=== PATIENT | female | born 1985 | race Caucasian/White ===

== ENCOUNTER 2019-07-22 15:19 | Outpatient (CLI) | payer MEDICARE, MEDICAID, SELFPAY ==
[2019-07-22 16:58] LABS: FREE T4 1.01 ng/dL (0.76-1.46); TSH 2.81 uIU/mL (0.36-3.74)
== END 2019-07-22 15:39 ==
PROVIDERS: Family Medicine; PCP Nurse Practitioner Family; Visit Provider Nurse Practitioner Family
DX: E03.9 Hypothyroidism, unspecified (principal)
CPT/HCPCS: 36415; 84439; 84443

== ENCOUNTER 2019-09-18 08:25 | Emergency (ER) | payer MEDICARE, MEDICAID, SELFPAY ==
[2019-09-18 08:29] VITALS: BP 123/75; PULSE 88; RESP 18; TEMP 36.2; O2SAT 99
--- NOTE | 2019-09-18 08:40 | ED.GENADUL_ITS ---
Discharge Plan Disposition Patient Disposition: HOME Condition: Stable Discharge Details Chief Complaint: GenMedical Clinical Impression: Encounter for medical screening examination Primary Care Provider: Lesia Pfeiffer ED Provider: Alvin Kramer Home Meds and New Rx's Prescriptions: Continued olanzapine [Zyprexa] 10 mg Tablet 30 mg PO DAILY RF: 0 dextroamphetamine-amphetamine [Adderall] 20 mg Tablet 20 mg PO BID RF: 0 Discharge Instructions Additional Instructions: You underwent medical screening examination and breath alcohol testing which was 0. You are medically stable for discharge from the emergency department at this time. Return for any acute concerns. Continue your regular medications Medical Decision Making 34-year-old female currently seen at the [facility] bed. Requests alcohol screening due to missing curfew last night and admitted to drinking alcohol. Denies thoug hts of harming herself or others. Her vital signs and medical examination are unremarkable. A breath alcohol test was performed and 0. Patient stable for discharge to home. HPI General Mode of arrival: ambulatory . Date/Time Provider Initiated Documentation: 09/18/19 08:28 . Limitations to Documentation: no limitations . Information obtained by: patient . History of Present Illness 34 year old F presents to the emergency department with the chief complaint of Requests alcohol screening, Quality is described as other (No other complaint), Patient started experiencing this hour(s) and it has been now resolved. No relieving factors improve symptom(s), No exacerbating factors reported . Patient notes no other symptoms.. Patient did receive the following treatment s prior to arrival, none Related Data Home Medications Medication Instructions Recorded Confirmed dextroamphetamine-amphetamine 20 mg PO BID 09/18/19 09/18/19 [Adderall] olanzapine [Zyprexa] 30 mg PO DAILY 09/18/19 09/18/19 Allergies Allergy/AdvReac Type Severity Reaction Status Date / Time No Known Allergies Allergy Unverified 09/18/19 08:39 General Stated Complaint: GenMedical MP: 5 Review of Systems Narrative: No active thoughts of harming self or others, no self-harm PFSH Social History Smoking/Tobacco Use Status: Current every day Alcohol Intake: current Alcohol Intake frequency: a few times a month Substance use type: does not use Current gender identity: female Exam Narrative Exam Narrative: GEN: awake, alert, oriented 3. Pleasant, well groomed, interactive. HEAD: Normocephalic, atraumatic ENT: Mucous membranes moist, oropharynx unremarkable, External ear exam unremarkable EYES: PERRL, EOMI NECK: Full ROM, no BALDO, no menigismus CHEST/RESP: No respiratory distress CARDIOVASCULAR: 2+ Rad pulse bilateral EXT: Full ROM, no edema, no rash Neuro: Grossly normal neurologic exam, conversant, interactive. Psych: Speech fluent, thoughts congruent, affect normal Course Vital Signs Vital signs: Vital Signs Temperature 36.2 C L 09/18/19 08:29 Pulse 88 09/18/19 08:29 Respiratory Rate 18 09/18/19 08:29 Blood Pressure 123/75 09/18/19 08:29 Pulse Oximetry 99 09/18/19 08:29 Temperature 36.2 C L 09/18/19 08:29 Temperature Source Skin 09/18/19 08:29 Pulse 88 09/18/19 08:29 Respiratory Rate 18 09/18/19 08:29 Respiratory Effort Non-Labored 09/18/19 08:37 Blood Pressure 123/75 09/18/19 08:29 Blood Pressure Position Sitting 09/18/19 08:29 Pulse Oximetry 99 09/18/19 08:29 Oxygen Delivery Method Room Air 09/18/19 08:29 Oxygen Flow Rate 0 09/18/19 08:29 Pain Level 0 09/18/19 08:29
== END 2019-09-18 08:53 | disposition home or self-care (01) ==
LOC: ER 08:55
PROVIDERS: Emergency Provider Emergency Medicine; PCP Family Medicine
DX: F10.10 Alcohol abuse, uncomplicated (principal)
CPT/HCPCS: 99283; 99282

== ENCOUNTER 2019-11-04 14:03 | Emergency (ER) | payer MEDICARE, MEDICAID, SELFPAY ==
[2019-11-04 14:00] VITALS: BP 136/85; PULSE 90; RESP 20; TEMP 36.5; O2SAT 99
--- NOTE | 2019-11-04 14:47 | W.ED.GENAD ---
Discharge Plan Disposition Patient Disposition: HOME Condition: Improving Discharge Details Chief Complaint: PsychEval Clinical Impression: Numbness and tingling of left leg Primary Care Provider: Lesia Pfeiffer ED Provider: Monica Gomez Home Meds and New Rx's Prescriptions: No Action olanzapine [Zyprexa] 10 mg Tablet 30 mg PO HS RF: 0 dextroamphetamine-amphetamine [Adderall] 20 mg Tablet 20 mg PO BID RF: 0 penicillin V potassium 500 mg Tablet 500 mg PO QID RF: 0 lorazepam 2 mg Tablet 2 mg PO DAILY RF: 0 norgestimate-ethinyl estradiol [Tri-Sprintec (28)] 0.18/0.215/0.25 mg-35 mcg (28) Tablet 1 tab PO DAILY RF: 0 ketoconazole 2 % Cream 1 applic TOPICAL BID RF: 0 aluminum chloride [Drysol] 20 % Solution 1 applic TOPICAL BID RF: 0 Discharge Instructions Additional Instructions: Drink plenty of fluids. Use your medications previously prescribed. Rest activities as tolerated. Follow-up with your mental health providers and primary care doctor. Return for any worsening, concerns or alarming symptoms sooner if needed Discharge Data Discharge Date/Time-TO BE ENTERED AT DEPARTURE: 11/04/19 16:23 Medical Decision Making This 34-year-old patient with a long psychologic history presenting to the emergency room for complaints of bilateral thigh numbness. Patient is primarily concerned that she was overmedicated. Patient does report she had a emotional day initially then saw her counselor and felt she had a good session. Patient currently resides at the [facility] bed. Patient medications are provided by [facility]. Patient denies any safety concern. Denies any suicidality, homicidality. Patient denies any fevers, chills, back pain. Patient denies any radicular symptoms bilaterally but reports proximal thigh sensation of numbness. Patient reports initially she had some ambulatory changes however at this time she has no obvious changes on exam. Patient has an exam revealing no obvious neurosurgical findings of the lower legs. Patient has sensation intact throughout her legs. Patient has full strength of her lower legs on exam. Patient has no other medical concerns or complaints at this time. Patient was offered lab evaluation as well as drug testing and mental health evaluation all of which she consents to. I attempted to speak with [facility] regarding patient's medication she was provided today and they are unwilling to disclose what medication she received today. Mental health consult was requested and they will evaluate the patient in the emergency room. Labs obtained as well as urine drug screen. Patient's urine drug screen is positive only for a for amphetamines. Patient is on Adderall. Patient's labs otherwise normal, testing negative. At this time patient reports that her symptoms have entirely resolved. She has absolutely no symptoms and is requesting discharge home. Patient request discharge and she would prefer to walk back to her care bed which is very near the hospital. I have called mental health to report that the patient is declining any further evaluation. Patient is not a safety risk and I do not feel I need to hold here for any mental health evaluation. I believe possibly this patient did receive her as needed Ativan this afternoon after being agitated in the morning which may have contributed to her symptoms today. Patient does not appear toxic, vital signs of been stable. Will discharge home at this time. Encourage close follow-up with her mental health practitioners and PCP. The patient was stable and requested discharge. Prior to discharge, my usual and customary return precautions were reviewed with the patient - this included follow-up instructions and reasons to return to the Emergency Department if conditions worsens, does not improve as expected, or other new concerns arise. [facility] General Date/Time Provider Initiated Documentation: 11/04/19 14:06. [facility] Narrative: This is a 34-year-old patient presenting to the emergency room complaining of bilateral leg numbness. Patient feels she has been overmedicated and someone gave her medications. Patient reports she has a dry mouth, she reports a normal gait. Patient denies headache, dizziness. She does report mild cough and cold symptoms. Patient reports she receives her medication at her care bed and is concerned that someone gave her additional medication. Patient denies any back pain, reports sensation of numbness focally at the proximal thighs. Denies any distal involvement. Patient reports she is ambulating without difficulty at this time. Patient denies any difficulty controlling bowels or bladder. Patient reports this is somewhat remnant of when she has been over medication in the past. Patient denies any suicidal ideation, homicidal ideation. Denies any hallucinations. When discussed paranoia and delusions patient does not feel she is being delusional but she is concerned that she could be receiving additional medications unnecessarily. Patient does report an emotional outburst this morning which is not atypical for her, she did see her counselor this morning and felt she had a good session. Return to her care bed after which she did receive medications and reports the symptoms began. Patient denies any additional illicit drug use or alcohol intake. Patient denies any ill feeling at this time. No other concerns or complaints. Related Data Home Medications Medication Instructions Recorded Confirmed dextroamphetamine-amphetamine 20 mg PO BID 09/18/19 11/04/19 [Adderall] olanzapine [Zyprexa] 30 mg PO HS 09/18/19 11/04/19 aluminum chloride [Drysol] 1 applic TOPICAL BID 11/04/19 11/04/19 ketoconazole 1 applic TOPICAL BID 11/04/19 11/04/19 lorazepam 2 mg PO DAILY 11/04/19 11/04/19 norgestimate-ethinyl estradiol 1 tab PO DAILY 11/04/19 11/04/19 [Tri-Sprintec (28)] penicillin V potassium 500 mg PO QID 11/04/19 11/04/19 Allergies Allergy/AdvReac Type Severity Reaction Status Date / Time No Known Allergies Allergy Unverified 09/18/19 08:39 General Stated Complaint: PsychEval MP: 2 Review of Systems All systems reviewed & are unremarkable except as noted in HPI and below Constitutional Constitutional: Denies chills, Denies fatigue, Denies fever(s) and Denies headache(s) ENT Ears, Nose, Mouth, and Throat: Denies vertigo, Denies dizziness, Denies otalgia, Denies headache(s), Reports nasal congestion and Denies sore throat Cardiovascular Cardiovascular: Denies dyspnea and Denies dyspnea on exertion Respiratory Respiratory: Reports cough, Denies dyspnea and Denies dyspnea on exertion Gastrointestinal Gastrointestinal: Denies abdominal pain, Denies nausea and Denies vomiting Musculoskeletal Musculoskeletal: Denies abnormal gait, Reports numbness and Denies tingling Neurologic Neurologic: Denies abnormal gait, Denies vertigo, Denies dizziness, Denies headache(s), Reports numbness, Denies tingling and Denies paresthesias Endocrine Endocrine: Denies fatigue [facility] Social History Smoking/Tobacco Use Status: Current every day Alcohol Intake: never Substance use type: does not use Current gender identity: female Exam Narrative Exam Narrative: CONST: Healthy appearing patient, in no acute distress. Well hydrated. Alert and oriented. HENMT: Head nomocephalic, normal to inspection. Atraumatic. Hearing grossly normal. EYES: General normal appearance. Alignment normal. Eyelids normal. Conjunctiva normal. NECK: Normal visual inspection. FROM. Trachea midline. No Midline tenderness. CHEST: Normal insepection of the chest. RESP: Normal respiratory effort. Speaking full sentences. No cough. No audible wheezing. No retractions. CARDIO: No JVD. MUSCULOSKELETAL: Normal Gait. FROM of all extremities. SKIN: Normal. Dry. No rashes. NEURO: Alert and awake. Speech clear. PSYCH: Normal affect. Cooperative. Course Vital Signs Vital signs: Vital Signs Temperature 36.5 C 11/04/19 14:00 Pulse 90 11/04/19 14:00 Respiratory Rate 20 11/04/19 14:00 Blood Pressure 136/85 11/04/19 14:00 Pulse Oximetry 99 11/04/19 14:00 Temperature 36.5 C 11/04/19 14:00 Temperature Source Skin 11/04/19 14:00 Pulse 90 11/04/19 14:00 Respiratory Rate 11/04/19 14:00 Respiratory Effort Non-Labored 11/04/19 14:08 Blood Pressure 136/85 11/04/19 14:00 Blood Pressure Position Sitting 11/04/19 14:00 Pulse Oximetry 99 11/04/19 14:00 Oxygen Delivery Method Room Air 11/04/19 14:00 Oxygen Flow Rate 0 11/04/19 14:00 Pain Level 6 11/04/19 14:00 Comment 11/04/19 14:00
[2019-11-04 15:13] LABS: Abs Immature Grans 0.01 k/cumm (0.0-0.09); Absolute Basophil Count 0.06 k/cumm (0.0-0.2); Absolute Eosinophil Count 0.36 k/cumm (0.0-0.7); Absolute Lymphocyte Count 1.81 k/cumm (1.2-3.4); Absolute Monocyte Count 0.42 k/cumm (0.11-0.7); Absolute Neutrophil Count 5.11 k/cumm (1.2-6.7); Basophils % 0.8; Eosinophils % 4.6; HGB 12.9 g/dL (12.0-15.5); Immature Grans % 0.1 %; Lymphocytes % 23.3; Mean Corp. HGB Concentration 33.9 g/dL (32.0-36.0); Mean Corpuscular Hemoglobin 30.3 pg (27.0-33.0); Mean Corpuscular Volume 89.2 fL (80-95); Monocytes % 5.4; Neutrophils % 65.8; Platelet Count 233 x1000/uL (130-400); RBC 4.26 m/cumm (4.00-5.20); White Blood Cell Count 7.77 k/cumm (4.4-10.8)
[2019-11-04 15:25] LABS: ALT 20 U/L (14-59); AST 15 U/L (15-37); Albumin 3.1 g/dL (3.4-5.0); Alkaline Phosphatase 53 U/L (46-116); Anion Gap 4.9 mmol/L (3-11); BUN 7 mg/dL (7-18); Bilirubin, Total 0.2 mg/dL (0.2-1.0); CO2 30.1 mmol/L (21.0-32.0); CREATININE 0.87 mg/dL (0.55-1.02); Calcium 8.9 mg/dL (8.5-10.1); Chloride 105 mmol/L (98-107); Glucose 87 mg/dL (74-106); Sodium 140 mmol/L (136-145); Total Protein 6.5 g/dL (6.4-8.2)
[2019-11-04 15:28] LABS: HCG Qual (Serum) Negative
[2019-11-04] MEDS: Nicotine 4 MG GUM (15:35)
[2019-11-04 15:44] LABS: *AMPHETAMINES SCREEN URINE POSITIVE (Negative); *BARBITURATES SCREEN URINE Negative (Negative); *BENZODIAZEPINES SCREEN URINE Negative (Negative); Cannabinoids THC Negative (Negative); Cocaine Screen,Urine Negative (Negative); METHADONE URINE SCREEN Negative (Negative); OPIATES URINE SCREEN Negative (Negative); Tricyclic Antidepressants Negative (Negative)
[2019-11-04] MEDS: Nicotine 2 MG LOZG SUC (16:14)
[2019-11-04 16:23] VITALS: BP 127/79; PULSE 94; RESP 18; O2SAT 98
== END 2019-11-04 16:23 | disposition home or self-care (01) ==
LOC: ER 16:26
PROVIDERS: Emergency Provider Physician Assistant; PCP Family Medicine
DX: R20.0 Anesthesia of skin (principal); R05 Cough
CPT/HCPCS: 36415; 80053; 80307; 99283; 84703; 85025

== ENCOUNTER 2019-12-01 17:25 | Emergency (ER) | payer MEDICARE, MEDICAID, SELFPAY ==
[2019-12-01 17:31] VITALS: BP 144/92; PULSE 115; TEMP 36.8; O2SAT 97
--- NOTE | 2019-12-01 17:56 | ED.GENADUL_ITS ---
Discharge Plan Disposition Patient Disposition: HOME Condition: Stable Discharge Details Chief Complaint: GenMedical Clinical Impression: Encounter for medical screening examination Primary Care Provider: Lesia Pfeiffer ED Provider: Main Duncan Home Meds and New Rx's Prescriptions: Continued dextroamphetamine-amphetamine [Adderall] 20 mg Tablet 20 mg PO BID RF: 0 lorazepam 2 mg Tablet 2 mg PO DAILY RF: 0 norgestimate-ethinyl estradiol [Tri-Sprintec (28)] 0.18/0.215/0.25 mg-35 mcg (28) Tablet 1 tab PO DAILY RF: 0 Discharge Instructions Additional Instructions: No acute medical condition was identified on evaluation today. Please contact your primary care physician to arrange follow-up. Return to the ER for any worsening or new concerning symptoms. Medical Decision Making 34-year-old female currently residing at the care bed sent to the emergency department for medical screening for missing curfew at care bed. Patient without complaint. Patient was initially tachycardic at triage. Not tachycardic on my exam. Heart rate 90. Patient was medically screened and no acute medical condition identified. Patient stable for discharge. HPI General Mode of arrival: ambulatory . Date/Time Provider Initiated Documentation: 12/01/19 17:56 . Limitations to Documentation: no limitations . Information obtained by: patient . HPI Narrative: 34-year-old female with a history of violent behavior is currently residing in the [facility] bed is here at the direction of the [facility] bed for medical screening. Patient has no complaints. Related Data Home Medications Medication Instructions Recorded Confirmed dextroamphetamine-amphetamine 20 mg PO BID 09/18/19 12/01/19 [Adderall] lorazepam 2 mg PO DAILY 11/04/19 12/01/19 norgestimate-ethinyl estradiol 1 tab PO DAILY 11/04/19 12/01/19 [Tri-Sprintec (28)] Allergies Allergy/AdvReac Type Severity Reaction Status Date / Time No Known Allergies Allergy Unverified 12/01/19 17:34 General Stated Complaint: GenMedical MP: 4 Review of Systems All systems reviewed & are unremarkable except as noted in HPI and below Constitutional Constitutional: Denies fatigue Gastrointestinal Gastrointestinal: Denies abdominal pain Neurologic Neurologic: Denies confusion Psychiatric Psychiatric: Denies anxiety, Denies confusion, Denies homicidal ideation and Denies suicidal ideation Endocrine Endocrine: Denies fatigue PFSH Social History Smoking/Tobacco Use Status: Current every day Alcohol Intake: never Substance use type: does not use Current gender identity: female Exam Const General: cooperative and no acute distress HENMT Head: normocephalic and atraumatic Mouth: mucous membranes dry Eyes Conjunctivae: normal conjunctivae Sclera: normal sclerae Pupils: PERRL EOM: EOM intact bilaterally Neck Neck: trachea midline and supple Resp Auscultation: clear to auscultation bilaterally, no rales, no rhonchi and no wheezes Cardio Jugular venous pressure: no JVD Rate: regular rate and not tachycardic Rhythm: regular rhythm Skin General skin exam: no rashes or lesions noted Neuro General: alert, awake, oriented x3 and tone normal Extrem General: no edema Psych Appearance: grossly normal Mental Status: mental status grossly normal Speech and Movement: speech and movement normal Thought Process: circumstantial Insight: insight good Judgment: judgment good Course Vital Signs Vital signs: Vital Signs Temperature 36.8 C 12/01/19 17:31 Pulse 115 H 12/01/19 17:31 Blood Pressure 144/92 H 12/01/19 17:31 Pulse Oximetry 97 12/01/19 17:31 Temperature 36.8 C 12/01/19 17:31 Temperature Source Skin 12/01/19 17:31 Pulse 115 H 12/01/19 17:31 Respiratory Effort Non-Labored 12/01/19 17:35 Blood Pressure 144/92 H 12/01/19 17:31 Blood Pressure Position Sitting 12/01/19 17:31 Pulse Oximetry 97 12/01/19 17:31 Oxygen Delivery Method Room Air 12/01/19 17:31 Oxygen Flow Rate 0 12/01/19 17:31 Pain Level 0 12/01/19 17:31
--- NOTE | 2019-12-01 18:24 | CMPROGNOTE_ITS ---
- If Service Date Differs Date of service: 12/01/19 Time of Service: 18:24 Care Management Progress Note ED provider reports Jacquelin is living at the [facility] Care Bed and she reportedly walked away from the Care Bed earlier. Per Care Bed policy, Jacquelin will not be allowed to return until she obtains medical clearance, so she is now presenting in the ED for that purpose. After meeting with Jacquelin, ED provider deems her medically stable. The Care Bed, however, has refused to allow Jacquelin to return until a full work-up is done. ED provider enlists CM's help in figuring out where Jacquelin can go for the night, as a full work-up is not warranted at this time and Jacquelin is ready for discharge. CM contacts the on-call [facility] cut and cover line worker, who in turn talks to SALES MANAGEMENT INTERN, as Jacquelin receives services through the SALES MANAGEMENT INTERN program at [facility]. CM then receives a call from the on-call cut and cover line worker who advises Jacquelin is allowed to return to the Care Bed. [facility] staff are unable to come pick her up from the hospital. The [employer] provides transport to the Care Bed.
--- NOTE | 2019-12-01 18:24 | PDOC.ERCMPRO ---
- If Service Date Differs Date of service: 12/01/19 Time of Service: 18:24 Care Management Progress Note ED provider reports Jacquelin is living at the [facility] Care Bed and she reportedly walked away from the Care Bed earlier. Per Care Bed policy, Jacquelin will not be allowed to return until she obtains medical clearance, so she is now presenting in the ED for that purpose. After meeting with Jacquelin, ED provider deems her medically stable. The Care Bed, however, has refused to allow Jacquelin to return until a full work-up is done. ED provider enlists CM's help in figuring out where Jacquelin can go for the night, as a full work-up is not warranted at this time and Jacquelin is ready for discharge. CM contacts the on-call [facility] forestry worker, who in turn talks to WEB DEVELOPMENT CONSULTANT, as Jacquelin receives services through the WEB DEVELOPMENT CONSULTANT program at [facility]. CM then receives a call from the on-call forestry worker who advises Jacquelin is allowed to return to the Care Bed. [facility] staff are unable to come pick her up from the hospital. The Utility Clerk provides transport to the Care Bed.
== END 2019-12-01 18:18 | disposition home or self-care (01) ==
PROVIDERS: Emergency Provider Student in an Organized Health Care Education/Training Program; PCP Family Medicine
DX: F20.9 Schizophrenia, unspecified (principal); Z13.9 Encounter for screening, unspecified
CPT/HCPCS: 99283

== ENCOUNTER 2019-12-02 03:58 | Emergency (ER) | payer MEDICARE, MEDICAID, SELFPAY ==
--- NOTE | 2019-12-02 04:03 | ED.GENADUL_ITS ---
Discharge Plan Disposition Patient Disposition: HOME Condition: Good Discharge Details Chief Complaint: GenMedical Clinical Impression: Encounter for medical screening examination Primary Care Provider: Lesia Pfeiffer ED Provider: Jerome Jarrell Meds and New Rx's Prescriptions: Continued dextroamphetamine-amphetamine [Adderall] 20 mg Tablet 20 mg PO BID RF: 0 lorazepam 2 mg Tablet 2 mg PO DAILY RF: 0 norgestimate-ethinyl estradiol [Tri-Sprintec (28)] 0.18/0.215/0.25 mg-35 mcg (28) Tablet 1 tab PO DAILY RF: 0 Discharge Instructions Additional Instructions: Follow-up with your clinical case manager assigned to you through UNDERWRITING SPECIALIST. Return to care bed for long term. Referrals: [facility] [Provider Group] Discharge Data Discharge Date/Time-TO BE ENTERED AT DEPARTURE: 12/02/19 04:20 Medical Decision Making Patient's chief complaint to nursing was that she had no place to go and it was cold outside. When I interviewed the patient she tried to manipulate various complaints. When confronted about this she became even more confrontational. I do not feel that there is any medical emergency. Suspect given the fact that she is a [employer] client and in the care bed for the last 5 months that her personality is as described, confrontational and manipulative. She became a little belligerent. I feel she is safe for discharge and asked the to escort her off the property given her confrontational and belligerent behavior. She may follow-up with her human resource statistician who is assigned to her by UNDERWRITING SPECIALIST as well as care bed. She left with verbal instructions only. Medical Records Medical records reviewed: Yes I reviewed the patient's medical records. HPI General Mode of arrival: ambulatory . Date/Time Provider Initiated Documentation: 12/02/19 04:00 . Limitations to Documentation: no limitations . Information obtained by: patient, RN notes reviewed and old records reviewed . HPI Narrative: Patient presents to ED with no specific complaint. She had been seen earlier in the evening after she missed curfew at the care bed. She was cleared medically and arrangements were made for her to go back to care bed. took her there but she refused to sign the paperwork and apparently has been sleeping in the [facility] bathroom all night. She told the triage nurse that she had no complaints whatsoever, it was just cold outside and she had no place to go. When I went into the room she was lying on the stretcher in no distress. When asked what she was here for she initially said after long consideration that maybe she was having a funny sensation in her chest. When I questioned her about that and the fact that she had told the nurse she had no complaints, she then changed her story to requesting that we make arrangements for her to go to [facility] because she did not wish to be taken care of by [facility]. I told her I was not able to do that. She then started rambling about other things and eventually went back to saying that she had a funny feeling in her chest. She has been at the [facility] bed for almost 5 months and is a UNDERWRITING SPECIALIST client. Related Data Home Medications Medication Instructions Recorded Confirmed dextroamphetamine-amphetamine 20 mg PO BID 09/18/19 12/01/19 [Adderall] lorazepam 2 mg PO DAILY 11/04/19 12/01/19 norgestimate-ethinyl estradiol 1 tab PO DAILY 11/04/19 12/01/19 [Tri-Sprintec (28)] Allergies Allergy/AdvReac Type Severity Reaction Status Date / Time No Known Allergies Allergy Unverified 12/01/19 17:34 General MP: 4 Review of Systems Unobtainable due to mental condition (Manipulative and not truthful) [facility] Social History Smoking/Tobacco Use Status: Current every day Alcohol Intake: current Alcohol Intake frequency: a few times a month Drug use: Occasionally Substance use type: marijuana Details: admits to use today 12/02/19 Current gender identity: female Additional Social history: currently homeless. Denies any known or perceived threats from self or others. Exam Narrative Exam Narrative: Vitals: Afebrile. Mild elevation of blood pressure. Normal vitals otherwise with normal pulse oximetry. Const: Obese female in NAD. HEENT: NC/AT. Normal facial exam. Eyes: Normal conjunctiva and sclera. Neck: Supple. Trachea midline. Lungs: Normal respiratory effort. Neuro: A+O x 3. Normal speech, mentation, gait. Cranial nerves II - XII grossly intact. No gross motor or sensory deficit. Psych: Confrontational and manipulative. Does not appear to be responding to internal stimuli. Does not exhibit flight of ideas or tangential ideas.
[2019-12-02 04:10] VITALS: BP 147/89; PULSE 82; RESP 16; TEMP 36.4; O2SAT 97
[2019-12-02 04:20] VITALS: BP 147/89; PULSE 82; RESP 16; TEMP 36.4; O2SAT 97
== END 2019-12-02 04:20 | disposition home or self-care (01) ==
LOC: ER 04:19
PROVIDERS: Emergency Provider Emergency Medicine; PCP Family Medicine
DX: F20.9 Schizophrenia, unspecified (principal); R46.89 Other symptoms and signs involving appearance and behavior; Z59.0 Homelessness
CPT/HCPCS: 99283; 99282

== ENCOUNTER 2019-12-05 00:45 | Inpatient (IN) | payer MEDICARE, MEDICAID, SELFPAY ==
[2019-12-05 00:53] VITALS: BP 148/101; PULSE 88; RESP 16; TEMP 36.5; O2SAT 99
--- NOTE | 2019-12-05 01:03 | ED.GENADUL_ITS ---
Discharge Plan Disposition Patient Disposition: [facility] INPATIENT Condition: Stable Discharge Details Chief Complaint: PsychEval Clinical Impression: Schizophrenia Primary Care Provider: Lesia Pfeiffer ED Provider: Maurice Nguyễn Home Meds and New Rx's Prescriptions: No Action dextroamphetamine-amphetamine [Adderall] 20 mg Tablet 20 mg PO BID RF: 0 lorazepam 2 mg Tablet 2 mg PO DAILY RF: 0 norgestimate-ethinyl estradiol [Tri-Sprintec (28)] 0.18/0.215/0.25 mg-35 mcg (28) Tablet 1 tab PO DAILY RF: 0 Medical Decision Making 34 yo female with chronic delusions per mental health on the phone comes in after she was yelling outside a [employer] and brought here by [place] state police. She is having some delusions stating the psychics aren't listenting to her and having some tangential thuoghts as well, denies si/hi or drug use and has no focal deficits. Her current behavior seems to be in line with her prior behavior, no findings to suggest underlying medical process such as infection or endocrine abnormality, will have mental health evaluate pt has remained stable and given she has not taken her meds for over 2 weeks and has been having more episodes like she had tonight including yelling at other people without reason and not making rational decisions she was EE'd. Spoke with Dr. Shepherd who accepts for admission Differential Diagnosis Differential Diagnosis: bipolar, depression Lab Data Lab results reviewed: Yes I reviewed the patient's lab results. HPI General Mode of arrival: ambulatory . Date/Time Provider Initiated Documentation: 12/05/19 00:47 . Limitations to Documentation: no limitations . Information obtained by: patient . History of Present Illness 34 year old F presents to the emergency department with the chief complaint of psych eval, described as moderate, No relieving factors improve symptom(s), No exacerbating factors reported . Patient did receive the following treatments prior to arrival, none Related Data Home Medications Medication Instructions Recorded Confirmed dextroamphetamine-amphetamine 20 mg PO BID 09/18/19 12/05/19 [Adderall] lorazepam 2 mg PO DAILY 11/04/19 12/05/19 norgestimate-ethinyl estradiol 1 tab PO DAILY 11/04/19 12/05/19 [Tri-Sprintec (28)] Allergies Allergy/AdvReac Type Severity Reaction Status Date / Time No Known Allergies Allergy Unverified 12/01/19 17:34 General Stated Complaint: PsychEval MP: 2 Review of Systems All systems reviewed & are unremarkable except as noted in HPI and below Constitutional Constitutional: Denies chills and Denies fever(s) Cardiovascular Cardiovascular: Denies dyspnea Respiratory Respiratory: Denies cough and Denies dyspnea Gastrointestinal Gastrointestinal: Denies abdominal pain, Denies nausea and Denies vomiting Musculoskeletal Musculoskeletal: Denies joint swelling Psychiatric Psychiatric: Denies depression [facility] Social History Smoking/Tobacco Use Status: Current every day Alcohol Intake: current Alcohol Intake frequency: a few times a month Drug use: Occasionally Substance use type: marijuana Details: admits to use today 12/02/19 Current gender identity: female Do you feel safe at home: No (no one likes me) Do you feel safe in your relationship?: Yes Additional Social history: currently homeless. Denies any known or perceived threats from self or others. Exam Const General: no acute distress Orientation: alert HENMT Head: normal to inspection Ears: external ears normal General nose exam: external nose normal Mouth: moist mucous membranes Eyes General: appearance normal, both eyes and all related structures Neck Neck: normal visual inspection Resp Effort & Inspection: normal respiratory effort and able to speak in complete sentences Cardio Rate: regular rate Skin General skin exam: no rashes or lesions noted Neuro General: alert and oriented x3 Extrem General: normal to inspection Psych Appearance: well kempt Course Vital Signs Vital signs: Vital Signs Temperature 36.5 C 12/05/19 00:53 Pulse 88 12/05/19 00:53 Respiratory Rate 16 12/05/19 00:53 Blood Pressure 148/101 H 12/05/19 00:53 Pulse Oximetry 99 12/05/19 00:53 Temperature 36.5 C 12/05/19 00:53 Temperature Source Skin 12/05/19 00:53 Pulse 88 12/05/19 00:53 Respiratory Rate 16 12/05/19 00:53 Respiratory Effort 12/05/19 00:54 Blood Pressure 148/101 H 12/05/19 00:53 Blood Pressure Position Supine 12/05/19 00:53 Pulse Oximetry 99 12/05/19 00:53 Oxygen Delivery Method Room Air 12/05/19 00:53 Oxygen Flow Rate 0 12/05/19 00:53 Pain Level 0 12/05/19 00:53
--- NOTE | 2019-12-05 01:11 | NUR.NOTE ---
Brought in by state police. state they were called to [facility] for a female yelling for help. On their arrival they state pt was yelling that she wished she was . Brought in for eval. Pt seen here 2 days ago for mental health eval. On pt arrival, placed in room 9, room secured. Changed to paper clothing. Clothing, boots, jacket, backpack in bags at RN station. Pt unable to state when last inpt psych stay was. poor eye contact, speaking in loud voice. Pt denies SI/HI. States she lives in [facility], no body likes me, they want me to leave. Asked for mental health eval. Cooperative with labs. states she urinated previous to arrival, unable to provide sample currently. Offered food and drink, declined. warm blanket provided, [employer] at door. Awaiting mental health eval.
[2019-12-05 01:13] LABS: Abs Immature Grans 0.01 k/cumm (0.0-0.09); Absolute Basophil Count 0.04 k/cumm (0.0-0.2); Absolute Eosinophil Count 0.16 k/cumm (0.0-0.7); Absolute Lymphocyte Count 2.31 k/cumm (1.2-3.4); Absolute Monocyte Count 0.59 k/cumm (0.11-0.7); Absolute Neutrophil Count 3.88 k/cumm (1.2-6.7); Basophils % 0.6; Eosinophils % 2.3; HCT 41.2 % (36.0-46.0); HGB 14.3 g/dL (12.0-15.5); Immature Grans % 0.1 %; Mean Corp. HGB Concentration 34.7 g/dL (32.0-36.0); Mean Corpuscular Hemoglobin 30.3 pg (27.0-33.0); Mean Corpuscular Volume 87.3 fL (80-95); Mean Platelet Volume 9.2 fL (8.0-11.0); Monocytes % 8.4; Neutrophils % 55.6; Platelet Count 275 x1000/uL (130-400); RBC 4.72 m/cumm (4.00-5.20); RBC Distribution Width 13.1 % (11.7-14.6); White Blood Cell Count 6.99 k/cumm (4.4-10.8)
--- NOTE | 2019-12-05 01:17 | NUR.NOTE ---
pt lying in bed awaiting mental health eval, Per MD Nguyễn, ok to hold meds.
[2019-12-05 01:27] LABS: ALT 27 U/L (14-59); AST 31 U/L (15-37); Albumin 3.5 g/dL (3.4-5.0); Alkaline Phosphatase 55 U/L (46-116); BUN 9 mg/dL (7-18); Bilirubin, Total 0.3 mg/dL (0.2-1.0); CREATININE 1.05 mg/dL (0.55-1.02); Calcium 8.2 mg/dL (8.5-10.1); Chloride 105 mmol/L (98-107); ETHANOL BLOOD 3.8 mg/dL (<3); Glucose 101 mg/dL (74-106); Potassium 3.5 mmol/L (3.5-5.1); Sodium 141 mmol/L (136-145); Total Protein 6.9 g/dL (6.4-8.2)
[2019-12-05 01:28] LABS: Salicylate 3.6 mg/dL (2.8-20.0)
[2019-12-05 01:29] LABS: Acetaminophen < 2 ug/mL (10-30)
[2019-12-05 01:38] LABS: PTT Activated 24.3 sec (21.0-31.4); Prothrombin Time 10.2 sec (9.3-11.0)
[2019-12-05] MEDS: Nicotine 4 MG GUM CH (01:54)
[2019-12-05 02:04] LABS: Bilirubin Negative (Negative); Blood Negative (Negative); Clarity Sl Cloudy (Clear); Glucose Negative (Negative); Ketones Trace mg/dL (Negative); Leukocyte Esterase Trace (Negative); Nitrite Negative (Negative); Urobilinogen 0.2 EU/dL (Up TO 0.2)
[2019-12-05 02:07] LABS: RBC Negative HPF (0-2)
[2019-12-05 02:08] LABS: Bacteria Moderate HPF (Negative); C & S Indicated? Yes; Casts Negative LPF (Negative); Crystals Negative HPF (Negative); Epithelial Cells Few HPF (Negative); Mucus Negative (Negative)
--- NOTE | 2019-12-05 02:48 | W.ED.GENAD ---
Discharge Plan Discharge Details Chief Complaint: PsychEval Primary Care Provider: Lesia Pfeiffer ED Provider: Maurice Nguyễn Home Meds and New Rx's Prescriptions: No Action dextroamphetamine-amphetamine [Adderall] 20 mg Tablet 20 mg PO BID RF: 0 lorazepam 2 mg Tablet 2 mg PO DAILY RF: 0 norgestimate-ethinyl estradiol [Tri-Sprintec (28)] 0.18/0.215/0.25 mg-35 mcg (28) Tablet 1 tab PO DAILY RF: 0 HPI General Mode of arrival: ambulatory. Date/Time Provider Initiated Documentation: 12/05/19 00:47. Limitations to Documentation: no limitations. Information obtained by: patient. History of Present Illness No relieving factors improve symptom(s), No exacerbating factors reported . Patient did receive the following treatments prior to arrival, none Related Data Home Medications Medication Instructions Recorded Confirmed dextroamphetamine-amphetamine 20 mg PO BID 09/18/19 12/05/19 [Adderall] lorazepam 2 mg PO DAILY 11/04/19 12/05/19 norgestimate-ethinyl estradiol 1 tab PO DAILY 11/04/19 12/05/19 [Tri-Sprintec (28)] Allergies Allergy/AdvReac Type Severity Reaction Status Date / Time No Known Allergies Allergy Unverified 12/01/19 17:34 General Stated Complaint: PsychEval MP: 2 PFSH Social History Smoking/Tobacco Use Status: Current every day Alcohol Intake: current Alcohol Intake frequency: a few times a month Drug use: Occasionally Substance use type: marijuana Details: admits to use today 12/02/19 Current gender identity: female Do you feel safe at home: No (no one likes me) Do you feel safe in your relationship?: Yes Additional Social history: currently homeless. Denies any known or perceived threats from self or others. Course Vital Signs Vital signs: Vital Signs Temperature 36.5 C 12/05/19 00:53 Pulse 88 12/05/19 00:53 Respiratory Rate 16 12/05/19 00:53 Blood Pressure 148/101 H 12/05/19 00:53 Pulse Oximetry 99 12/05/19 00:53 Temperature 36.5 C 12/05/19 00:53 Temperature Source Skin 12/05/19 00:53 Pulse 88 12/05/19 00:53 Respiratory Rate 16 12/05/19 00:53 Respiratory Effort 12/05/19 00:54 Blood Pressure 148/101 H 12/05/19 00:53 Blood Pressure Position Supine 12/05/19 00:53 Pulse Oximetry 99 12/05/19 00:53 Oxygen Delivery Method Room Air 12/05/19 00:53 Oxygen Flow Rate 0 12/05/19 00:53 Pain Level 0 12/05/19 00:53 Lab/Test Results Lab/Test Results: 12/05/19 01:55 Urine - Reflex from Ua Urine Culture - Pending Laboratory Tests Range/Units 12/05/19 12/05/19 12/05/19 01:08 01:08 01:08 WBC (4.4-10.8) k/cumm 6.99 RBC (4.00-5.20) m/cumm 4.72 Hgb (12.0-15.5) g/dL 14.3 Hct (36.0-46.0) % 41.2 MCV (80-95) fL 87.3 MCH (27.0-33.0) pg 30.3 MCHC (32.0-36.0) g/dL 34.7 RDW (11.7-14.6) % 13.1 Plt Count (130-400) x1000/uL 275 MPV (8.0-11.0) fL 9.2 Immature Gran % % 0.1 Neutrophils % 55.6 Lymphocytes % 33.0 Monocytes % 8.4 Eosinophils % 2.3 Basophils % 0.6 Absolute Neutrophils (1.2-6.7) k/cumm 3.88 Absolute Lymphocytes (1.2-3.4) k/cumm 2.31 Absolute Monocytes (0.11-0.7) k/cumm 0.59 Absolute Eosinophils (0.0-0.7) k/cumm 0.16 Absolute Basophils (0.0-0.2) k/cumm 0.04 PT (9.3-11.0) sec INR (0.9-1.1) APTT (21.0-31.4) sec Sodium (136-145) mmol/L 141 Potassium (3.5-5.1) mmol/L 3.5 Chloride (98-107) mmol/L 105 Carbon Dioxide (21.0-32.0) mmol/L 29.0 Anion Gap (3-11) mmol/L 7.0 BUN (7-18) mg/dL 9 Creatinine (0.55-1.02) mg/dL 1.05 H Estimated GFR/1.73 m2 (mL/min/1.73m2) 59.30 Glucose (74-106) mg/dL 101 Calcium (8.5-10.1) mg/dL 8.2 L Total Bilirubin (0.2-1.0) mg/dL 0.3 AST (15-37) U/L 31 ALT (14-59) U/L 27 Alkaline Phosphatase (46-116) U/L 55 Total Protein (6.4-8.2) g/dL 6.9 Albumin (3.4-5.0) g/dL 3.5 Urine Color (Yellow) Urine Clarity (Clear) Urine pH (5-8) Ur Specific [place] (1.005-1.025) Urine Protein (Negative) mg/dL Urine Ketones (Negative) mg/dL Urine Blood (Negative) Urine Nitrite (Negative) Urine Bilirubin (Negative) Urine Urobilinogen (Up TO 0.2) EU/dL Ur Leukocyte Esterase (Negative) Urine RBC (0-2) HPF Urine WBC (0-5) HPF Ur Epithelial Cells (Negative) HPF Urine Crystals (Negative) HPF Urine Bacteria (Negative) HPF Urine Casts (Negative) LPF Urine Mucus (Negative) Ur Culture Indicated? Urine Glucose (Negative) mg/dL Salicylates (2.8-20.0) mg/dL 3.6 Acetaminophen (10-30) ug/mL < 2 Ethyl Alcohol (<3) mg/dL 3.8 Range/Units 12/05/19 12/05/19 01:08 01:55 WBC (4.4-10.8) k/cumm RBC (4.00-5.20) m/cumm Hgb (12.0-15.5) g/dL Hct (36.0-46.0) % MCV (80-95) fL MCH (27.0-33.0) pg MCHC (32.0-36.0) g/dL RDW (11.7-14.6) % Plt Count (130-400) x1000/uL MPV (8.0-11.0) fL Immature Gran % % Neutrophils % Lymphocytes % Monocytes % Eosinophils % Basophils % Absolute Neutrophils (1.2-6.7) k/cumm Absolute Lymphocytes (1.2-3.4) k/cumm Absolute Monocytes (0.11-0.7) k/cumm Absolute Eosinophils (0.0-0.7) k/cumm Absolute Basophils (0.0-0.2) k/cumm PT (9.3-11.0) sec 10.2 INR (0.9-1.1) 1.0 APTT (21.0-31.4) sec 24.3 Sodium (136-145) mmol/L Potassium (3.5-5.1) mmol/L Chloride (98-107) mmol/L Carbon Dioxide (21.0-32.0) mmol/L Anion Gap (3-11) mmol/L BUN (7-18) mg/dL Creatinine (0.55-1.02) mg/dL Estimated GFR/1.73 m2 (mL/min/1.73m2) Glucose (74-106) mg/dL Calcium (8.5-10.1) mg/dL Total Bilirubin (0.2-1.0) mg/dL AST (15-37) U/L ALT (14-59) U/L Alkaline Phosphatase (46-116) U/L Total Protein (6.4-8.2) g/dL Albumin (3.4-5.0) g/dL Urine Color (Yellow) Yellow Urine Clarity (Clear) Sl cloudy Urine pH (5-8) 7.0 Ur Specific [place] (1.005-1.025) 1.020 Urine Protein (Negative) mg/dL Negative Urine Ketones (Negative) mg/dL Trace H Urine Blood (Negative) Negative Urine Nitrite (Negative) Negative Urine Bilirubin (Negative) Negative Urine Urobilinogen (Up TO 0.2) EU/dL 0.2 Ur Leukocyte Esterase (Negative) Trace H Urine RBC (0-2) HPF Negative Urine WBC (0-5) HPF 3-5 Ur Epithelial Cells (Negative) HPF Few Urine Crystals (Negative) HPF Negative Urine Bacteria (Negative) HPF Moderate Urine Casts (Negative) LPF Negative Urine Mucus (Negative) Negative Ur Culture Indicated? Yes Urine Glucose (Negative) mg/dL Negative Salicylates (2.8-20.0) mg/dL Acetaminophen (10-30) ug/mL Ethyl Alcohol (<3) mg/dL POC- Test(urine) Negative
--- NOTE | 2019-12-05 03:08 | PDOC.MHCN_ITS ---
Date of service: 12/05/19 Time of Service: 01:56 Mental Health Crisis Note Presenting Issue How did you arrive at the ED and why did you come: State police picked patient up at [facility] after an employee called and shared a women had been outside screaming for help. The [facility] care home also called the police stating that patient has a psych issue and needed to be picked up and was not welcome back at the care home tonight due to disruptive behaviors. State police office stated that patient was screaming and crying when he arrived and told police she wanted them to kill her. Patient was not making statements that did not make sense and [place] asked if patient was willing to go to the hospital. Patient agreed. Precipitating Factors Patient initially refused to speak to ES worker, then started making random comments toward ES worker and the doctor. When asked about SI/HI patient stated I might pick my hang nail. Disposition BEHAVIOR: annoyed, loud outbursts EYE CONTACT: back to ES worker at first then rolled over and made some eye contact MOOD: irritable AFFECT: broad APPETITE: refused to answer SLEEP(trouble falling/staying asleep: refused to answer Plan Patient will remain at [facility] awaiting hospitalization on EE status Signature Clinician's Name/Title: Rito Banerjee Emergency clinician
--- NOTE | 2019-12-05 04:03 | PDOC.ERCMPRO ---
Care Management Progress Note S/O: Jacquelin was transported to the ED by [facility] following a call for assistance from [employer]. Reported that she she was outside the store yelling for help. It is currently-16 degrees outside. has been verbally threatening and exhibiting erratic behaviors. Jacklyn has not been taking her medications durig this and as been threatening to staff members and providers over the past few months. She has been refusing care after showing up for her office appointments and has left AMA from the ER during a recent visit. She is not currently actively voicing any intent to harm herself or anyone else. She accepted PO Benadryl and has been cooperative with care at this point. Dr. Jarrell completed the EE. Jacklyn is not able to agree with the plan for inpatient psychiatric admission for stabilization and treatment at this time. [facility] has been contacted to compete the psychiatric evaluation and is enroute from [facility]. Jacklyn is well known to our local agency, [facility], who will follow up in the morning. Jacklyn has been unable to exhibit capacity to agree with the need to seek inpatient psychiatric care. Please see and MD notes for further information. INVOLUNTARY FOR INPATIENT PSYCHIATRIC STABILIZATION. EE completed and she is now on involuntary status. High risk for elopement and high risk for impulsive, aggressive behaviors. Jacklyn is unpredictable in terms of her response at this time and cannot agree to inpatient psychiatric treatment but is at risk for harming herself and others. Safety plan has been established with the care team, to adhere to patient goals, identify restrictions based on behavioral status, address nutrition, and determine allowed personal belongings, tools for hygiene and personal care. Determine level of activity including ambulation, level of supervision, visitors, and determine privileges based on behaviors and level of engagement by patient; please note safety plan below. Jacklyn was not able to participate in developing the plan and is not able to articulate agreement. Huddle Participants: Mariela Porter, Hosiery Knitter; AGUILAR Buitrago, Gina, RN-Electrotype Molder SAFETY PLAN: ED Room #5 05/14/19 00:30 1. Will remain on suicide precautions. In Paper Clothes 2. Will remain in room under direct supervision of one-on-one staff at all times provided by [employer]; ERIC, QUIQUE production department supervisor. 3. May have paper cups, plates, finger foods, safety spoon 4. Follow [facility] Management of the Admitted Behavioral Health Patient policy. 5. Comfort bath system only. May shower if available, escorted by clinical staff and at the discretion of the RN. 6. May keep her hat. No other personal belongings. 7. No visitors at this time. 9. Bathroom privileges: escort to bathroom at RN discretion. 10. No Phone at this time. 11. Will remain in the ED to complete her evaluation and transfer to a M/S Transition Bed will be coordinated by the Hosiery Knitter based on bed availability and staffing. 12. TV and remote if available at RN discretion. 13. Paper and crayons for activity at RN discretion 14. Due to INVOLUNTARY status, the patient must remain in the hospital. Second Certification will be scheduled with [facility]. Patient is currently involuntarily at [facility] and in need of inpatient psychiatric admission when a bed becomes available. [facility]MHP/Frontline Hyperbaric Technologist will seek placement. Please contact the Sanitation Officer Electrotype Molder ([phone]) and [facility] Hyperbaric Technologist ([phone]) for any needed changes in the Safety Plan. Safety plan has been provided to interdepartmental care team including Clinical Coordinator, Nursing Credit Administration Officer
--- NOTE | 2019-12-05 04:38 | NUR.NOTE ---
Report to [facility].
[2019-12-05 05:23] VITALS: BP 118/84; PULSE 70; RESP 17; TEMP 36.4; O2SAT 95
[2019-12-05 05:42] VITALS: BP 120/82; PULSE 74; RESP 17; TEMP 36.5; O2SAT 95
--- NOTE | 2019-12-05 05:44 | CMPROGNOTE_ITS ---
Care Management Progress Note S/O: Jacquelin arrived in protective custody ohad been outside [employer] for help and employees called [facility] for assistance. It is currently -16 degrees outside. Reported that she has been verbally threatening and exhibiting erratic behaviors. Yelling that ?the psychics are not listening to her?. Jacquelin has been residing at the local Care Bed for the past 5 months. Prior to this she had been receiving inpatient psychiatric care for an extended period of time. This is the fifth ED visit in the past 3 months. Four visits were for medical clearance to return to the Care Bed and one was for a complaint of possibly receiving too much medication at the Care Bed. Jacquelin has not been taking her medications for the past 2 weeks. It was reported that she left the Care Bed on Saturday and has been sleeping in the [employer] bathroom. She is not currently actively voicing any intent to harm herself but her behaviors are capable of resulting in harm. Jacquelin is not able to agree with the plan for inpatient psychiatric admission for stabilization and treatment at this time. [facility] has been contacted to compete the psychiatric evaluation. Jacquelin is well known to our local agency, [facility], and receives services through the [employer] program. At this time she has been unable to exhibit capacity to agree with the need to seek inpatient psychiatric care. Please see and MD notes for further information. INVOLUNTARY FOR INPATIENT PSYCHIATRIC STABILIZATION. EE completed and she is now on involuntary status. High risk for elopement and high risk for impulsive, verbally aggressive behaviors. Jacquelin is unpredictable in terms of her response at this time and cannot agree to inpatient psychiatric treatment but is at risk for harming herself. Safety plan has been established with the care team, to adhere to patient goals, identify restrictions based on behavioral status, address nutrition, and determine allowed personal belongings, tools for hygiene and personal care. Determine level of activity including ambulation, level of supervision, visitors, and determine privileges based on behaviors and level of engagement by patient; please note safety plan below. Jacquelin was not able to participate in developing the plan and is not able to articulate agreement. Huddle Participants: Mariela Bruner, Building Associate; AGUILAR Fuentes-Floral Department Specialist; Rito [facility] Crisis Galina Weldon [facility] DIRECTOR T[employer]ED MARKETING Maintenance And Custodian Supervisor SAFETY PLAN: ED Room #9, M/S Transition Bed MM 2/15/20 04:15 1. Will remain In Paper Clothes and on Suicide precautions 2. Will remain in room under direct supervision of one-on-one staff at all times provided by [employer]; ERIC, FUR COMBER absorber operator. 3. May have paper cups, plates, finger foods, safety spoon 4. Follow [facility] Management of the Admitted Behavioral Health Patient policy. 5. Comfort bath system only. 6. No cell phone at this time. 7. No visitors at this time. 9. Bathroom privileges: escort to bathroom at RN discretion while in the ED 10. Will remain in the ED to complete her evaluation and transfer to a M/S Transition Bed will be coordinated by the Building Associate based on bed availability and staffing. 11. Limit conversations at this time due to her manipulative behavior including a repeated verbal threat to kill her father which is not a credible threat according to [facility]. Serves as a trigger point leading to escalation of behaviors. 12. TV if available at RN discretion. No remote at this time 13. Paper and crayons for activity at RN discretion 14. Due to INVOLUNTARY status, the patient must remain in the hospital. Second Certification will be scheduled with [facility]. Patient is currently involuntarily at [facility] and in need of inpatient psychiatric admission when a bed becomes available. [facility]MHP/Frontline Instrument Checker will seek placement. No beds are available tonight. Please contact the [employer]il[employer]aker Loftsman Floral Department Specialist ([phone]) and [facility] Instrument Checker ([phone]) for any needed changes in the Safety Plan. Safety plan has been provided to interdepartmental care team including Clinical Coordinator, Nursing Talent Acquisition Partner
--- NOTE | 2019-12-05 05:50 | CMSP_ITS ---
Care Management Safety Plan Safety plan has been established with the care team, to adhere to patient goals, identify restrictions based on behavioral status, address nutrition, and determine allowed personal belongings, tools for hygiene and personal care. Determine level of activity including ambulation, level of supervision, visitors, and determine privileges based on behaviors and level of engagement by patient; please note safety plan below. Jacquelin was not able to participate in developing the plan and is not able to articulate agreement. SAFETY PLAN: M/S Transition Bed 12/05/19 04:15 1. Will remain In Paper Clothes and on Suicide precautions 2. Will remain in room under direct supervision of one-on-one staff at all times provided by [employer]; ERIC, AGRONOMY ADVISOR airport refueling handler. 3. May have paper cups, plates, finger foods, safety spoon 4. Follow [facility] Management of the Admitted Behavioral Health Patient policy. 5. Comfort bath system only. 6. No cell phone at this time. 7. No visitors at this time. 9. Bathroom privileges: escort to bathroom at RN discretion while in the ED 10. Will remain in the ED to complete her evaluation and transfer to a M/S Transition Bed will be coordinated by the Relations Specialist based on bed availability and staffing. 11. Limit conversations at this time due to her manipulative behavior including a repeated verbal threat to kill her father which is not a credible threat according to [facility]. Serves as a trigger point leading to escalation of behaviors. 12. TV if available at RN discretion. No remote at this time 13. Paper and crayons for activity at RN discretion 14. Due to INVOLUNTARY status, the patient must remain in the hospital. Second Certification will be scheduled with [facility]. Patient is currently involuntarily at [facility] and in need of inpatient psychiatric admission when a bed becomes available. [facility]/Frontline Warp Starter will seek placement. No beds are available tonight. Please contact the Life Advisor Book Sewing Machine Operator ([phone]) and [facility] Warp Starter ([phone]) for any needed changes in the Safety Plan. Safety plan has been provided to interdepartmental care team including Clinical Coordinator, Nursing Technology Director
--- NOTE | 2019-12-05 06:07 | HPE_ITS ---
Date of service: 12/05/19 Time of Service: 06:07 History of Present Illness History of Present Illness Chief Complaint: agitation and delusions Narrative: 34 female with schizophrenia, brought in by police having been found yelling ou [place]side of [place] [employer]. Report is that has not been taking meds for two weeks but we do not have details beyond this. In ER did not requiore any sedation. Seen by mental health and admitted on EE status. Patient does not provide any history to me except indicating that she does not need anything from me at this time. Review of Systems Unobtainable due to mental condition [facility] Social History Smoking/Tobacco Use Status: Current every day Alcohol Intake: current Alcohol Intake frequency: a few times a month Drug use: Occasionally Substance use type: marijuana Details: admits to use today 12/02/19 Current gender identity: female Do you feel safe at home: No (no one likes me) Do you feel safe in your relationship?: Yes Additional Social history: currently homeless. Denies any known or perceived threats from self or others. Meds Home Medications and Allergies Home Medications Medication Instructions Recorded Confirmed Type dextroamphetamine-amphetamine 20 mg PO BID 09/18/19 12/05/19 History [Adderall] lorazepam 2 mg PO DAILY 11/04/19 12/05/19 History norgestimate-ethinyl estradiol 1 tab PO DAILY 11/04/19 12/05/19 History [Tri-Sprintec (28)] Allergies Allergy/AdvReac Type Severity Reaction Status Date / Time No Known Allergies Allergy Unverified 12/01/19 17:34 Exam Narrative Exam Narrative: 120/82, 74, 17, 36.5. HEENT Atraumatic; neck supple; lungsclear, heart RRR; abdomen soft and NT; extremities w/o edema; neuro awakens to voice, moves all 4s Results Labs Result diagrams: 12/05/19 01:08 12/05/19 01:08 Labs: Laboratory Results - last 24 hr 12/05/19 12/05/19 12/05/19 01:08 01:08 01:08 WBC 6.99 RBC 4.72 Hgb 14.3 Hct 41.2 MCV 87.3 MCH 30.3 MCHC 34.7 RDW 13.1 Plt Count 275 MPV 9.2 Immature Gran % 0.1 Neutrophils % 55.6 Lymphocytes % 33.0 Monocytes % 8.4 Eosinophils % 2.3 Basophils % 0.6 Absolute Neutrophils 3.88 Absolute Lymphocytes 2.31 Absolute Monocytes 0.59 Absolute Eosinophils 0.16 Absolute Basophils 0.04 PT INR APTT Sodium 141 Potassium 3.5 Chloride 105 Carbon Dioxide 29.0 Anion Gap 7.0 BUN 9 Creatinine 1.05 H Estimated GFR/1.73 m2 59.30 Glucose 101 Calcium 8.2 L Total Bilirubin 0.3 AST 31 ALT 27 Alkaline Phosphatase 55 Total Protein 6.9 Albumin 3.5 Urine Color Urine Clarity Urine pH Ur Specific [place] Urine Protein Urine Ketones Urine Blood Urine Nitrite Urine Bilirubin Urine Urobilinogen Ur Leukocyte Esterase Urine RBC Urine WBC Ur Epithelial Cells Urine Crystals Urine Bacteria Urine Casts Urine Mucus Ur Culture Indicated? Urine Glucose Salicylates 3.6 Acetaminophen < 2 Ethyl Alcohol 3.8 12/05/19 12/05/19 01:08 01:55 WBC RBC Hgb Hct MCV MCH MCHC RDW Plt Count MPV Immature Gran % Neutrophils % Lymphocytes % Monocytes % Eosinophils % Basophils % Absolute Neutrophils Absolute Lymphocytes Absolute Monocytes Absolute Eosinophils Absolute Basophils PT 10.2 INR 1.0 APTT 24.3 Sodium Potassium Chloride Carbon Dioxide Anion Gap BUN Creatinine Estimated GFR/1.73 m2 Glucose Calcium Total Bilirubin AST ALT Alkaline Phosphatase Total Protein Albumin Urine Color Yellow Urine Clarity Sl cloudy Urine pH 7.0 Ur Specific [place] 1.020 Urine Protein Negative Urine Ketones Trace H Urine Blood Negative Urine Nitrite Negative Urine Bilirubin Negative Urine Urobilinogen 0.2 Ur Leukocyte Esterase Trace H Urine RBC Negative Urine WBC 3-5 Ur Epithelial Cells Few Urine Crystals Negative Urine Bacteria Moderate Urine Casts Negative Urine Mucus Negative Ur Culture Indicated? Yes Urine Glucose Negative Salicylates Acetaminophen Ethyl Alcohol Last Vital Signs Temp 36.5 C 12/05/19 05:42 Pulse 74 12/05/19 05:42 Resp 17 12/05/19 05:42 BP 120/82 12/05/19 05:42 Pulse Ox 95 12/05/19 05:42
[2019-12-05] MEDS: Nicotine 4 MG LOZG SUC ×6 (06:59→21:28)
--- NOTE | 2019-12-05 11:37 | CMSP_ITS ---
Care Management Safety Plan Safety plan has been established with the care team, to adhere to patient goals, identify restrictions based on behavioral status, address nutrition, and determine allowed personal belongings, tools for hygiene and personal care. Determine level of activity including ambulation, level of supervision, visitors, and determine privileges based on behaviors and level of engagement by patient; please note safety plan below. Jacquelin was not able to participate in developing the plan and is not able to articulate agreement. SAFETY PLAN: M/S Transition Bed 12/05/19 1185 1. Will remain In Paper Clothes and on Suicide precautions 2. Will remain in room under direct supervision of one-on-one staff at all times provided by [employer]; ERIC, FARM AGENT director blood bank. 3. May have paper cups, plates, finger foods, safety spoon 4. Follow [facility] Management of the Admitted Behavioral Health Patient policy. 5. Comfort bath system only. 6. No cell phone at this time, personal belongings limited to glasses per RN discretion at this time. 7. No visitors at this time. 9. Bathroom privileges available in room without limitation. 10. Will remain in the ED to complete her evaluation and transfer to a M/S Transition Bed will be coordinated by the Dental Lab Technician based on bed availability and staffing. 11. Limit conversations at this time; serves as a trigger point leading to escalation of behaviors. Low stimulation environment recommended. 12. TV and remote available at RN discretion. 13. Book, Paper and crayons for activity at RN discretion 14. Due to INVOLUNTARY status, the patient must remain in the hospital. Second Certification will be scheduled with [facility]. Patient is currently involuntarily at [facility] and in need of inpatient psychiatric admission when a bed becomes available. [facility]/Frontline Editing Internship will seek placement. No beds are available tonight. Please contact the Geothermal Powerplant Mechanic Auto Damage Trainee ([phone]) and [facility] Editing Internship ([phone]) for any needed changes in the Safety Plan. Safety plan has been provided to interdepartmental care team including Clinical Coordinator, Nursing Electrical Continuity Tester
--- NOTE | 2019-12-05 11:39 | PHARADMIT ---
Addendum entered by Terrence Hawkins III 12/11/19 11:09: [facility] has acepted patint for Saturday. Awaiting transfer. Patient has been refusing her scheduled Zyprexa, she is taking her Tamiflu. No VS No Labs Addendum entered by Myra Gonzalez 12/10/19 16:00: HR-129 other VS okay, labs from yesterday were within normal limits no med changes so far today pt. refused psych meds last night waiting for placement Addendum entered by Terrence Hawkins III 12/09/19 10:35: Patient remains on EE status, awaiting psych bed placement. VS-OK No Labs Refused meds overnight. Original Note: Admission Pharmacy Clinical Review schizophrenia pt on EE status. So far has refused all PO meds
--- NOTE | 2019-12-05 14:42 | PGE_ITS ---
Date of Service Date of service: 12/05/19 Time of Service: 14:42 Assessment and Plan Assessment and plan (1) Schizophrenia: Status: Chronic Assessment and plan: She reportedly has been off her medications for 2 weeks. Mental health is working on placement at a psychiatric facility. Her second certification is likely to occur after 6 PM. Continue safety plan. Continue one-to-one patient observer. Continue to offer her usual medications, including olanzapine, and lorazepam. Hold Adderall for now. Subjective Subjective Interval history since last seen: Jacquelin continues to report voices from a psychic that kept her up all night, she appears frustrated by the voices, she occasionally yells at the voices. She denies being suicidal or homicidal however, explains that she had a dream that she massacred everyone at the [facility] and had to leave. She is clear that this was just a dream and she does not plan to harm anyone. Her speech is extremely disorganized, nonsensical, tangential. She has a safety plan in place with a 1:1 patient observer. Exam Narrative Exam Narrative: She is pleasant, tangential speech, poor eye contact. She is alert, does not appear oriented. She has dry mucous membranes. Respirations appear even and unlabored, lung sounds clear to auscultation throughout, occasional nonproductive cough noted. Her heart has a regular rate and rhythm, non-tachycardic, no murmur appreciated. Normoactive bowel sounds throughout, abdomen soft, nontender on palpation, nondistended. No clubbing, cyanosis or edema. Objective Objective Clinical Data: Abnormal lab results 12/05/19 12/05/19 Range/Units 01:08 01:55 Creatinine 1.05 H (0.55-1.02) mg/dL Calcium 8.2 L (8.5-10.1) mg/dL Urine Ketones Trace H (Negative) mg/dL Ur Leukocyte Esterase Trace H (Negative) Vital Signs Temperature 36.5 C 12/05/19 05:42 Temperature Source Tympanic 12/05/19 05:42 Pulse 74 12/05/19 05:42 Respiratory Rate 17 12/05/19 05:42 Respiratory Effort 12/05/19 09:00 Blood Pressure 120/82 12/05/19 05:42 Blood Pressure Position Supine 12/05/19 00:53 Pulse Oximetry 95 12/05/19 05:42 Oxygen Delivery Method Room Air 12/05/19 05:42 Oxygen Flow Rate 0 12/05/19 05:42 Pain Level 0 12/05/19 00:53 Comment 12/05/19 09:15 Intake & Output 12/04/19 12/05/19 12/05/19 23:59 11:59 23:59 Intake Total 750 / 1230 480 / 1230 Balance 750 / 1230 480 / 1230 Weight 95.254 kg Intake: Oral 750 / 1230 480 / 1230 Other: Comment pT independent using bathroom. Voiding Methods Toilet # Voids 1 Laboratory Results WBC 6.99 k/cumm (4.4-10.8) 12/05/19 01:08 RBC 4.72 m/cumm (4.00-5.20) 12/05/19 01:08 Hgb 14.3 g/dL (12.0-15.5) 12/05/19 01:08 Hct 41.2 % (36.0-46.0) 12/05/19 01:08 MCV 87.3 fL (80-95) 12/05/19 01:08 MCH 30.3 pg (27.0-33.0) 12/05/19 01:08 MCHC 34.7 g/dL (32.0-36.0) 12/05/19 01:08 RDW 13.1 % (11.7-14.6) 12/05/19 01:08 Plt Count 275 x1000/uL (130-400) 12/05/19 01:08 MPV 9.2 fL (8.0-11.0) 12/05/19 01:08 Immature Gran % 0.1 % 12/05/19 01:08 Neutrophils % 55.6 12/05/19 01:08 Lymphocytes % 33.0 12/05/19 01:08 Monocytes % 8.4 12/05/19 01:08 Eosinophils % 2.3 12/05/19 01:08 Basophils % 0.6 12/05/19 01:08 Absolute Neutrophils 3.88 k/cumm (1.2-6.7) 12/05/19 01:08 Absolute Lymphocytes 2.31 k/cumm (1.2-3.4) 12/05/19 01:08 Absolute Monocytes 0.59 k/cumm (0.11-0.7) 12/05/19 01:08 Absolute Eosinophils 0.16 k/cumm (0.0-0.7) 12/05/19 01:08 Absolute Basophils 0.04 k/cumm (0.0-0.2) 12/05/19 01:08 PT 10.2 sec (9.3-11.0) 12/05/19 01:08 INR 1.0 (0.9-1.1) 12/05/19 01:08 APTT 24.3 sec (21.0-31.4) 12/05/19 01:08 Sodium 141 mmol/L (136-145) 12/05/19 01:08 Potassium 3.5 mmol/L (3.5-5.1) 12/05/19 01:08 Chloride 105 mmol/L (98-107) 12/05/19 01:08 Carbon Dioxide 29.0 mmol/L (21.0-32.0) 12/05/19 01:08 Anion Gap 7.0 mmol/L (3-11) 12/05/19 01:08 BUN 9 mg/dL (7-18) 12/05/19 01:08 Creatinine 1.05 mg/dL (0.55-1.02) H 12/05/19 01:08 Estimated GFR/1.73 m2 59.30 (mL/min/1.73m2) 12/05/19 01:08 Glucose 101 mg/dL (74-106) 12/05/19 01:08 Calcium 8.2 mg/dL (8.5-10.1) L 12/05/19 01:08 Total Bilirubin 0.3 mg/dL (0.2-1.0) 12/05/19 01:08 AST 31 U/L (15-37) 12/05/19 01:08 ALT 27 U/L (14-59) 12/05/19 01:08 Alkaline Phosphatase 55 U/L (46-116) 12/05/19 01:08 Total Protein 6.9 g/dL (6.4-8.2) 12/05/19 01:08 Albumin 3.5 g/dL (3.4-5.0) 12/05/19 01:08 Urine Color Yellow (Yellow) 12/05/19 01:55 Urine Clarity Sl cloudy (Clear) 12/05/19 01:55 Urine pH 7.0 (5-8) 12/05/19 01:55 Ur Specific [place] 1.020 (1.005-1.025) 12/05/19 01:55 Urine Protein Negative mg/dL (Negative) 12/05/19 01:55 Urine Ketones Trace mg/dL (Negative) H 12/05/19 01:55 Urine Blood Negative (Negative) 12/05/19 01:55 Urine Nitrite Negative (Negative) 12/05/19 01:55 Urine Bilirubin Negative (Negative) 12/05/19 01:55 Urine Urobilinogen 0.2 EU/dL (Up TO 0.2) 12/05/19 01:55 Ur Leukocyte Esterase Trace (Negative) H 12/05/19 01:55 Urine RBC Negative HPF (0-2) 12/05/19 01:55 Urine WBC 3-5 HPF (0-5) 12/05/19 01:55 Ur Epithelial Cells Few HPF (Negative) 12/05/19 01:55 Urine Crystals Negative HPF (Negative) 12/05/19 01:55 Urine Bacteria Moderate HPF (Negative) 12/05/19 01:55 Urine Casts Negative LPF (Negative) 12/05/19 01:55 Urine Mucus Negative (Negative) 12/05/19 01:55 Ur Culture Indicated? Yes 12/05/19 01:55 Urine Glucose Negative mg/dL (Negative) 12/05/19 01:55 Salicylates 3.6 mg/dL (2.8-20.0) 12/05/19 01:08 Acetaminophen < 2 ug/mL (10-30) 12/05/19 01:08 Ethyl Alcohol 3.8 mg/dL (<3) 12/05/19 01:08
--- NOTE | 2019-12-05 19:25 | MHPN_ITS ---
Date of service: 12/05/19 Time of Service: 19:25 Mental Health Crisis Note Presenting Issue How did you arrive at the ED and why did you come: Jacquelin arrived yesterday via [facility] after leaving the [facility] and going to [facility]. [facility] was called with concerns of a female, later to be identified at Jacquelin, screaming help me out side of the business. Precipitating Factors Today's visit is to do the 2nd cert for Jacquelin. Jacquelin is denying SI and HI. She is not clear however of organized thoughts. She is not making a lot of sense in answering questions and she does not have clear memories of events that have taken place. It was observed that she has this involuntary lip smacking as well. Disposition BEHAVIOR: Jacquelin has been cooperative and friendly while here at [facility]. When she does get worked up she is able ot be re-directed. EYE CONTACT: Eye contact is good and at times she will roll her eyes to show she is dissatisfied with what is being said. MOOD: Jacquelin appears and reports that she is happy to be here at [facility] and wants to stay. AFFECT: Jacquelin's affect appears to be normal other than the unusual lip smacking. APPETITE: Jacquelin is eating well. SLEEP(trouble falling/staying asleep: Jacquelin did not get much sleep last night. Plan Jacquelin will remain at [facility] pending placement. Dr. Reyes Machuca from [facility] is certifying the EE. [facility] will check in with Jacquelin daily in the AM's and PM's to update status. Signature Clinician's Name/Title: Samantha Ly MS, [facility] Emergency Services Clinician
--- NOTE | 2019-12-05 19:37 | PDOC.CMPRO ---
Care Management Progress Note S/O: Jacquelin was in the hallway speaking to staff and agreed to speak with the Psychiatrist via telemedicine. Accompanied her back into her room where she accepted the tablet and began speaking to Dr. Machuca. She was engaged in the conversation but her thoughts were scattered across many subjects and it appeared difficult for her to focus on answering the actual question. Denies suicidality and denies that she intends to harm anyone. Sat cross-legged on the floor of her room throughout the interview and stated she really liked her room here but was not interested in going for Inpatient Psychiatric treatment at this time. Did not feel she wanted to take the medications that would be prescribed because the meds had made her brain feel very dull in the past. Stated she is homeless and was not able to articulate her plan to find housing if she left the hospital. She has bee cooperative and staff have been able to redirect her when needed. Safety plan has been established with the care team, to adhere to patient goals, identify restrictions based on behavioral status, address nutrition, and determine allowed personal belongings, tools for hygiene and personal care. Determine level of activity including ambulation, level of supervision, visitors, and determine privileges based on behaviors and level of engagement by patient; please note safety plan below. Jacquelin was still not able to participate in developing the plan and is not able to articulate agreement. SAFETY PLAN: M/S Transition Bed #235 MM 12/05/192029 1. Will remain In Paper Clothes and on Suicide precautions 2. Will remain in room under direct supervision of one-on-one staff at all times provided by [employer]; ERIC, HADOOP ENGINEER parts facilitator. 3. May have paper cups, plates, finger foods, safety spoon 4. Follow [facility] Management of the Admitted Behavioral Health Patient policy. 5. Comfort bath system and may shower with staff supervision at the discretion of nursing. 6. No cell phone at this time, personal belongings limited to glasses per RN discretion at this time. 7. No visitors at this time. 9. Bathroom privileges available in room without limitation. 10. Will remain in the ED to complete her evaluation and transfer to a M/S Transition Bed will be coordinated by the Manager Shift based on bed availability and staffing. 11. Limit conversations at this time; serves as a trigger point leading to escalation of behaviors. Low stimulation environment recommended. 12. TV and remote available at RN discretion. 13. Book, Paper and crayons for activity at RN discretion 14. Due to INVOLUNTARY status, the patient must remain in the hospital. Second Certification completed by Dr. Machuca and she will remain on Involuntary Status. Patient is currently involuntarily at [facility] and in need of inpatient psychiatric admission when a bed becomes available. [facility]/Frontline Urinalysis Technician will seek placement. No beds are available tonight. Please contact the Apprentice Instrument Technician Senior Licensing Manager ([phone]) and [facility] Urinalysis Technician ([phone]) for any needed changes in the Safety Plan. Safety plan has been provided to interdepartmental care team including Clinical Coordinator, Nursing Call Center Operator
--- NOTE | 2019-12-05 20:38 | CMSP_ITS ---
Care Management Safety Plan Safety plan has been established with the care team, to adhere to patient goals, identify restrictions based on behavioral status, address nutrition, and determine allowed personal belongings, tools for hygiene and personal care. Determine level of activity including ambulation, level of supervision, visitors, and determine privileges based on behaviors and level of engagement by patient; please note safety plan below. Jacquelin was still not able to participate in developing the plan and is not able to articulate agreement. SAFETY PLAN: M/S Transition Bed #235 MM 12/05/192029 1. Will remain In Paper Clothes and on Suicide precautions 2. Will remain in room under direct supervision of one-on-one staff at all times provided by [employer]; ERIC, MANAGER ARCHITECTURE quality assurance supervisor body. 3. May have paper cups, plates, finger foods, safety spoon 4. Follow [facility] Management of the Admitted Behavioral Health Patient policy. 5. Comfort bath system and may shower with staff supervision at the discretion of nursing. 6. No cell phone at this time, personal belongings limited to glasses per RN discretion at this time. 7. No visitors at this time. 9. Bathroom privileges available in room without limitation. 10. Will remain in the M/S Transition Bed until appropriate inpatient psych iatric bed is available for admission, treatment and stabilization. 11. Limit conversations at this time; serves as a trigger point leading to escalation of behaviors. Low stimulation environment recommended. 12. TV and remote available at RN discretion. 13. Book, Paper and crayons for activity at RN discretion 14. Due to INVOLUNTARY status, the patient must remain in the hospital. Second Certification completed by Dr. Machuca and she will remain on Involuntary Status. Patient is currently involuntarily at [facility] and in need of inpatient psychiatric admission when a bed becomes available. [facility]/Frontline Occupational Health Nurse Supervisor will seek placement. No beds are available tonight. Please contact the Carbon Printer Building Guard Deputy Sheriff ([phone]) and [facility] Occupational Health Nurse Supervisor ([phone]) for any needed changes in the Safety Plan. Safety plan has been provided to interdepartmental care team including Clinical Coordinator, Nursing Railroad Track Mechanic
[2019-12-05] MEDS: LORazepam 1 MG TAB 2 MG PO (23:16)
[2019-12-06] MEDS: Nicotine 4 MG LOZG SUC ×7 (02:18→21:00)
[2019-12-06] MEDS: Acetaminophen 325 MG TAB 650 MG PO (09:26)
[2019-12-06 09:35] VITALS: PULSE 103; RESP 20; TEMP 36.7; O2SAT 96
--- NOTE | 2019-12-06 10:15 | PDOC.MHCN ---
Date of service: 12/06/19 Time of Service: 09:40 Mental Health Crisis Note Presenting Issue How did you arrive at the ED and why did you come: Patient came in to the ER Saturday night after being picked up by state police for her behavior outside of [place] [employer] in -20 degree weather. Precipitating Factors Patient shared that she would like to have real clothes and underwear. ES worker inquired if patient would give her nurse permission to look in her belongings to see if there were underwear in the bag. Patient said yes. Patient stated that she would like to speak to a multicultural internship. Hospital staff shared that patient got a shower this morning, staff shared that patient has been doing a lot of yelling. ES worker inquired if patient was having any thoughts of hurting herself or others. Patient said absolutely not. Disposition BEHAVIOR: Calm during evaluation, nurse reports disruptive behaviors - yelling pacing the halls and resting. Patient continues to go through these cycles EYE CONTACT: good MOOD: annoyed AFFECT: broad APPETITE: okay SLEEP(trouble falling/staying asleep: okay Plan Patient will remain at [facility] on EE status until bed is available. Signature Clinician's Name/Title: Rito Banerjee Emergency clinician
--- NOTE | 2019-12-06 10:56 | PDOC.CMPRO ---
- If Service Date Differs Date of service: 12/06/19 Time of Service: 10:56 Care Management Progress Note S/O: CM met with Jacquelin while ANAMIKA Veras was present. Jacquelin was appropriate in interactions with CM. She stated that she would be calm and respectful while we were talking to her so that we would leave. She asked if she could have her own clothes, which Rito stated that she may be able to have her underwear, if they are available. Jacquelin gave verbal permission for her RN to look through her bag for her clothes. Her RN, Leah, stated that they are in need of cleaning. She will ask Jacquelin for permission to have them cleaned. She will also ask Jacquelin for permission to bring her home medications to the pharmacy. Jacquelin goes through a cycle of sleeping/laying down quietly, then pacing/walking, and sometimes escalates to yelling, often profanities. Rito ALVAREZ and staff discussed redirecting and asking for her to be polite and respectful. There has been some success with redirecting her behaviors by staff. KIM called a huddle with ANAMIKA Veras; Leah, primary RN; AGUILAR Michel Coordinator; AGUILAR Pineda Beck Tender, and KIM Anderson. Rito expressed that per Rufino, at [facility], she will not be considered for admission until Saturday when a customer care coordinator is available to review her case. Clothes were discussed during the huddle. It was determined that Leah would ask if her clothes could be laundered, and that she is permitted to have her underwear, but not her street clothes as she is an elopement risk. Per Fabienne Veras from ANAMIKA is her GAME PROTECTOR leather case finisher, who will assist with her behaviors and placement on 12/07/19. At this time the only facility that would be an option for placement is [facility]. ANAMIKA Singh will visit Jacquelin later this evening to check in on status. KIM will continue to follow and support Jacquelin and staff with discharge planning considerations. Safety plan has been established with the care team, to adhere to patient goals, identify restrictions based on behavioral status, address nutrition, and determine allowed personal belongings, tools for hygiene and personal care. Determine level of activity including ambulation, level of supervision, visitors, and determine privileges based on behaviors and level of engagement by patient; please note safety plan below. Jacquelin was still not able to participate in developing the plan and is not able to articulate agreement. SAFETY PLAN: M/S Transition Bed #235 MM 12/06/19 11:45 1. Will remain In Paper Clothes and on Suicide precautions. Will be given own underwear, once laundered. 2. Will remain in room under direct supervision of one-on-one staff at all times provided by CPSO; ERIC, DENTAL CREAM MAKER chip bin operator. 3. May have paper cups, plates, finger foods, safety spoon 4. Follow [facility] Management of the Admitted Behavioral Health Patient policy. 5. Comfort bath system and may shower with staff supervision at the discretion of nursing. 6. No cell phone at this time, personal belongings limited to glasses per RN discretion at this time. 7. No visitors at this time. 9. Bathroom privileges available in room without limitation. 10. Will remain in the M/S Transition Bed until appropriate inpatient psychiatric bed is available for admission, treatment and stabilization. 11. Limit conversations at this time; serves as a trigger point leading to escalation of behaviors. Low stimulation environment recommended. 12. TV and remote available at RN discretion. 13. Book, Paper and crayons for activity at RN discretion 14. Due to INVOLUNTARY status, the patient must remain in the hospital. Second Certification completed by Dr. Machuca and she will remain on Involuntary Status. Patient is currently involuntarily at [facility] and in need of inpatient psychiatric admission when a bed becomes available. [facility]/Frontline Sprinkling System Installer will seek placement. No beds are available tonight. Please contact the Inhalation Therapy Aides Teacher Plating Tank Operator Apprentice ([phone]) and [facility] Sprinkling System Installer ([phone]) for any needed changes in the Safety Plan. Safety plan has been provided to interdepartmental care team including Clinical Coordinator, Nursing Beck Tender
--- NOTE | 2019-12-06 11:16 | W.PM.PROGNOT ---
Date of Service Date of service: 12/06/19 Time of Service: 11:16 Assessment and Plan Assessment and plan (1) Schizophrenia: Start date: 12/06/19 Start time: 11:26 Status: Chronic Assessment and plan: She reportedly has been off her medications for 2 weeks. Involuntary with working on inpatient psychiatric center for her. Continue safety plan. Continue one-to-one patient observer. Continue to offer her usual medications, including olanzapine, and lorazepam. Hold Adderall for now. Subjective Subjective Interval history since last seen: Jacquelin continues to report voices and see invisible people, she wants to punch the invisible people in the face. She also states she wants to punch healthcare workers in the face but she won't because she knows it is illegal. She occasionally yells at the voices. She denies being suicidal or homicidal. She wants to sleep, she did not sleep overnight. Her speech is extremely disorganized, nonsensical, tangential. She has a safety plan in place with a 1:1 patient observer. She did mention to nursing she was in need of a doctor for her vagina because it was bleeding. When asked directly she denies having vaginal bleeding and she is currently not on her period. Exam Narrative Exam Narrative: She is pleasant, tangential speech, poor eye contact. She is alert, does not appear oriented. She has dry mucous membranes. Respirations appear even and unlabored, lung sounds clear to auscultation throughout, occasional nonproductive cough noted. Her heart has a regular rate and rhythm, non-tachycardic, no murmur appreciated. Normoactive bowel sounds throughout, abdomen soft, nontender on palpation, nondistended. No clubbing, cyanosis or edema. Objective Objective Clinical Data: Vital Signs Temperature 36.7 C 12/06/19 09:35 Temperature Source Tympanic 12/06/19 09:35 Pulse 103 H 12/06/19 09:35 Respiratory Rate 20 12/06/19 09:35 Respiratory Effort 12/06/19 02:25 Respiratory Depth Normal 12/06/19 02:25 Respiratory Pattern Normal 12/06/19 02:25 Blood Pressure 120/82 12/05/19 05:42 Blood Pressure Position Supine 12/05/19 00:53 Pulse Oximetry 96 12/06/19 09:35 Oxygen Delivery Method Room Air 12/06/19 09:35 Oxygen Flow Rate 0 12/06/19 09:35 Pain Level 0 12/06/19 09:35 Comment 12/05/19 09:15 Intake & Output 12/05/19 12/05/19 12/06/19 11:59 23:59 11:59 Intake Total 750 / 2170 1420 / 2170 1170 / 1170 Balance 750 / 2170 1420 / 2170 1170 / 1170 Weight 95.254 kg Intake: Oral 750 / 2170 1420 / 2170 1170 / 1170 Other: Comment pT independent using bathroom. per patient rate. per patient rate. Voiding Methods Toilet Toilet Toilet # Voids 1 Laboratory Results WBC 6.99 k/cumm (4.4-10.8) 12/05/19 01:08 RBC 4.72 m/cumm (4.00-5.20) 12/05/19 01:08 Hgb 14.3 g/dL (12.0-15.5) 12/05/19 01:08 Hct 41.2 % (36.0-46.0) 12/05/19 01:08 MCV 87.3 fL (80-95) 12/05/19 01:08 MCH 30.3 pg (27.0-33.0) 12/05/19 01:08 MCHC 34.7 g/dL (32.0-36.0) 12/05/19 01:08 RDW 13.1 % (11.7-14.6) 12/05/19 01:08 Plt Count 275 x1000/uL (130-400) 12/05/19 01:08 MPV 9.2 fL (8.0-11.0) 12/05/19 01:08 Immature Gran % 0.1 % 12/05/19 01:08 Neutrophils % 55.6 12/05/19 01:08 Lymphocytes % 33.0 12/05/19 01:08 Monocytes % 8.4 12/05/19 01:08 Eosinophils % 2.3 12/05/19 01:08 Basophils % 0.6 12/05/19 01:08 Absolute Neutrophils 3.88 k/cumm (1.2-6.7) 12/05/19 01:08 Absolute Lymphocytes 2.31 k/cumm (1.2-3.4) 12/05/19 01:08 Absolute Monocytes 0.59 k/cumm (0.11-0.7) 12/05/19 01:08 Absolute Eosinophils 0.16 k/cumm (0.0-0.7) 12/05/19 01:08 Absolute Basophils 0.04 k/cumm (0.0-0.2) 12/05/19 01:08 PT 10.2 sec (9.3-11.0) 12/05/19 01:08 INR 1.0 (0.9-1.1) 12/05/19 01:08 APTT 24.3 sec (21.0-31.4) 12/05/19 01:08 Sodium 141 mmol/L (136-145) 12/05/19 01:08 Potassium 3.5 mmol/L (3.5-5.1) 12/05/19 01:08 Chloride 105 mmol/L (98-107) 12/05/19 01:08 Carbon Dioxide 29.0 mmol/L (21.0-32.0) 12/05/19 01:08 Anion Gap 7.0 mmol/L (3-11) 12/05/19 01:08 BUN 9 mg/dL (7-18) 12/05/19 01:08 Creatinine 1.05 mg/dL (0.55-1.02) H 12/05/19 01:08 Estimated GFR/1.73 m2 59.30 (mL/min/1.73m2) 12/05/19 01:08 Glucose 101 mg/dL (74-106) 12/05/19 01:08 Calcium 8.2 mg/dL (8.5-10.1) L 12/05/19 01:08 Total Bilirubin 0.3 mg/dL (0.2-1.0) 12/05/19 01:08 AST 31 U/L (15-37) 12/05/19 01:08 ALT 27 U/L (14-59) 12/05/19 01:08 Alkaline Phosphatase 55 U/L (46-116) 12/05/19 01:08 Total Protein 6.9 g/dL (6.4-8.2) 12/05/19 01:08 Albumin 3.5 g/dL (3.4-5.0) 12/05/19 01:08 Urine Color Yellow (Yellow) 12/05/19 01:55 Urine Clarity Sl cloudy (Clear) 12/05/19 01:55 Urine pH 7.0 (5-8) 12/05/19 01:55 Ur Specific [place] 1.020 (1.005-1.025) 12/05/19 01:55 Urine Protein Negative mg/dL (Negative) 12/05/19 01:55 Urine Ketones Trace mg/dL (Negative) H 12/05/19 01:55 Urine Blood Negative (Negative) 12/05/19 01:55 Urine Nitrite Negative (Negative) 12/05/19 01:55 Urine Bilirubin Negative (Negative) 12/05/19 01:55 Urine Urobilinogen 0.2 EU/dL (Up TO 0.2) 12/05/19 01:55 Ur Leukocyte Esterase Trace (Negative) H 12/05/19 01:55 Urine RBC Negative HPF (0-2) 12/05/19 01:55 Urine WBC 3-5 HPF (0-5) 12/05/19 01:55 Ur Epithelial Cells Few HPF (Negative) 12/05/19 01:55 Urine Crystals Negative HPF (Negative) 12/05/19 01:55 Urine Bacteria Moderate HPF (Negative) 12/05/19 01:55 Urine Casts Negative LPF (Negative) 12/05/19 01:55 Urine Mucus Negative (Negative) 12/05/19 01:55 Ur Culture Indicated? Yes 12/05/19 01:55 Urine Glucose Negative mg/dL (Negative) 12/05/19 01:55 Salicylates 3.6 mg/dL (2.8-20.0) 12/05/19 01:08 Acetaminophen < 2 ug/mL (10-30) 12/05/19 01:08 Ethyl Alcohol 3.8 mg/dL (<3) 12/05/19 01:08
[2019-12-06 11:47] LABS: T4 14.7 ug/mL (4.7-13.3); TSH 3.02 uIU/mL (0.36-3.74)
--- NOTE | 2019-12-06 11:47 | PDOC.CMSAFE ---
- If Service Date Differs Date of service: 12/06/19 Time of Service: 11:48 Care Management Safety Plan Safety plan has been established with the care team, to adhere to patient goals, identify restrictions based on behavioral status, address nutrition, and determine allowed personal belongings, tools for hygiene and personal care. Determine level of activity including ambulation, level of supervision, visitors, and determine privileges based on behaviors and level of engagement by patient; please note safety plan below. Jacquelin was still not able to participate in developing the plan and is not able to articulate agreement. KIM coordinated huddle with staff at 10:30am. Huddle participants were Rito, [facility] janitorial maintenance worker; Leah, primary RN; Marilu, RN Coordinator; Miriam, RN Card Assembler; KIM Anderson. SAFETY PLAN: M/S Transition Bed #235 MM 12/06/19 11:45 1. Will remain In Paper Clothes and on Suicide precautions. Will be given own underwear, once laundered. 2. Will remain in room under direct supervision of one-on-one staff at all times provided by CPSO; ERIC, MEAT COOLER duralumin metalworker. 3. May have paper cups, plates, finger foods, safety spoon 4. Follow [facility] Management of the Admitted Behavioral Health Patient policy. 5. Comfort bath system and may shower with staff supervision at the discretion of nursing. 6. No cell phone at this time, personal belongings limited to glasses per RN discretion at this time. 7. No visitors at this time. 9. Bathroom privileges available in room without limitation. 10. Will remain in the M/S Transition Bed until appropriate inpatient psychiatric bed is available for admission, treatment and stabilization. 11. Limit conversations at this time; serves as a trigger point leading to escalation of behaviors. Low stimulation environment recommended. 12. TV and remote available at RN discretion. 13. Book, Paper and crayons for activity at RN discretion 14. Due to INVOLUNTARY status, the patient must remain in the hospital. Second Certification completed by Dr. Machuca and she will remain on Involuntary Status. Patient is currently involuntarily at [facility] and in need of inpatient psychiatric admission when a bed becomes available. [facility] QMHP/Frontline Chick Room Supervisor will seek placement. No beds are available tonight. Please contact the [employer] Program Coordinator Engagement Quality Consultant ([phone]) and [facility] Chick Room Supervisor ([phone]) for any needed changes in the Safety Plan. Safety plan has been provided to interdepartmental care team including Clinical Coordinator, Nursing Card Assembler
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
--- NOTE | 2019-12-06 20:34 | PDOC.CMSAFE ---
- If Service Date Differs Time of Service: 20:34 Care Management Safety Plan Care Management Safety Plan Safety plan was established with the care team earlier today to adhere to patient goals, identify restrictions based on behavioral status, address nutrition, and determine allowed personal belongings, tools for hygiene and personal care. Determine level of activity including ambulation, level of supervision, visitors, and determine privileges based on behaviors and level of engagement by patient; please note safety plan below. Jacquelin was still not able to participate in developing the plan and is not able to articulate agreement. SAFETY PLAN: M/S Transition Bed #235 ADDENDUM 12/06/2019 20:38 PM 1. Will remain In Paper Clothes and on Suicide precautions. Will be given own underwear, once laundered. 2. Will remain in room under direct supervision of one-on-one staff at all times provided by CPSO; ERIC, FISH AND WILDLIFE TECHNICIAN digital music instructor. 3. May have paper cups, plates, finger foods, safety spoon. Food tray is not to be left in the room with patient at any time. 4. Follow [facility] Management of the Admitted Behavioral Health Patient policy. 5. Comfort bath system and may shower with staff supervision at the discretion of nursing. 6. No cell phone at this time, personal belongings limited to glasses per RN discretion at this time. 7. No visitors at this time. 9. Bathroom privileges available in room without limitation. 10. Will remain in the M/S Transition Bed until appropriate inpatient psychiatric bed is available for admission, treatment and stabilization. 11. Limit conversations at this time; serves as a trigger point leading to escalation of behaviors. Low stimulation environment recommended. 12. TV and remote available at RN discretion. 13. Book, Paper and crayons for activity at RN discretion 14. Due to INVOLUNTARY status, the patient must remain in the hospital. Second Certification completed by Dr. Machuca and she will remain on Involuntary Status. Patient is currently involuntarily at [facility] and in need of inpatient psychiatric admission when a bed becomes available. [facility] QMHP/Frontline Terminal System Operator will seek placement. No beds are available tonight. Please contact the Chair Mechanic Area Field Worker ([phone]) and [facility] Terminal System Operator ([phone]) for any needed changes in the Safety Plan. Safety plan has been provided to interdepartmental care team including Clinical Coordinator, Nursing Tack Picker
[2019-12-06] MEDS: OLANZapine 10 MG TAB 30 MG PO (21:00)
[2019-12-06 21:29] VITALS: BP 114/77; PULSE 84; RESP 18; TEMP 36.6; O2SAT 97
[2019-12-07] MEDS: Nicotine 4 MG LOZG SUC ×5 (12:13→23:02)
--- NOTE | 2019-12-07 13:48 | W.NUTCONSULT ---
Date of service: 12/07/19 Time of Service: 13:48 Nutritional Consult ASSESSMENT: 34 year old female admitted for medical screening, schizophrenia. Following regular diet with adequate intake. BMI indicates class 1 obesity. Not considered at nutritional risk. MONITORING AND EVALUATION: po intake, weight, labs Time Spent in Nutritional Counseling and Treatment: 0 time spent face to face
--- NOTE | 2019-12-07 16:08 | PDOC.MHCN_ITS ---
Date of service: 12/07/19 Time of Service: 10:50 Mental Health Crisis Note Presenting Issue How did you arrive at the ED and why did you come: Client was police escorted to [facility] on Saturday night, December 04, 2019, for a screening. It was reported to this scientific writer that client was in the [facility] parking lot screaming Help me. [facility] and the [facility] both called 911 for assistance. It was found that there was no immediate threat to client. Client was screened by emergency services and was put on EE status. Client met the requirements for the second certification and is awaiting placement. This scientific writer arrived to complete the daily screening through CERTIFIED OPHTHALMIC MEDICAL TECHNICIAN until placement can be arranged. Precipitating Factors Client was unable to comment, as they asleep. Staff shared that client has continued to deny SI or HI. Disposition BEHAVIOR: Unable to observe. It was reported by staff that clients behaviors included screaming loudly, nudity, refusals to get out of the shower after a prolonged period of time. EYE CONTACT: Not observable. MOOD: It was reported that client was very loud screeming and disrupting other patients on the floor. This scientific writer did not observe, as client was sleeping. AFFECT: Not observed. APPETITE: Unknown. SLEEP(trouble falling/staying asleep: Client was sleeping when this scientific writer arrived, after checking in with Care management and [facility] staff it was thought best to leave client sleeping. Plan Care management will call this scientific writer when client has woken up, to screen client. Signature Clinician's Name/Title: Vane Leyva - JAMIN senior medical transcriptionist
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
--- NOTE | 2019-12-07 17:49 | PGE_ITS ---
Date of Service Date of service: 12/07/19 Time of Service: 17:49 Assessment and Plan Assessment and plan (1) Acute psychosis: Status: Acute Assessment and plan: In setting of not taking medications for schizophrenia. The patient is not sure if zyprexa is the right medication for her, stating it makes her sleepy. Will continue it for now, and I reinforced with the patient that I think she should take it. The patient is under EE until appropriate psychiatric placement can be found. (2) Schizophrenia: Status: Chronic Assessment and plan: Continue zyprexa, prn ativan. Hold adderall. (3) Hypothyroidism: Status: Chronic Assessment and plan: Dose and timing of last dose verified with care bed - she was on levothyroxine 125 mcg PO daily until 12/01. Resume outpatient dose. (4) Tobacco abuse: Status: Acute Assessment and plan: Continue nicotine replacement (5) DVT prophylaxis: Status: Acute Assessment and plan: not required in an ambulatory patient <40 years old. (6) Discharge planning issues: Status: Acute Assessment and plan: Full code Under EE Until psychiatric placement can be secured. Subjective Subjective Interval history since last seen: Ms Hicks states that she is not hallucinating. She denies that the entity she describes as the psychic is a hallucination, even though we can't see him. She believes that he is real. She endorses a headache. Denies dizziness, chest pain, shortness of breath. Denies sore throat. Had a code duarte called on her last night because she would not leave the shower - but she eventually complied. She expresses that she does not want to go to a psychiatric hospital. She is interested in discussing this with a psychiatrist - I communicated this to care management. Exam Narrative Exam Narrative: General: Patient is heard yelling from a distance alone in the room - there is no one talking to her in the room, but calms right down when I come to talk to her and speaks with me respectfully. A&OX3, voice sounds raspy HEENT: EOMI, MMM Heart: not auscultated Lungs: nonlabored breathing; not auscultated Abdomen: nondistended Extremities: no obvious edema Objective Objective Clinical Data: Vital Signs Temperature 36.6 C 12/06/19 21:29 Temperature Source Tympanic 12/06/19 21:29 Pulse 84 02/16/20 21:29 Pulse Rhythm Regular 12/07/19 17:26 Respiratory Rate 18 12/06/19 21:29 Respiratory Effort Non-Labored 12/07/19 17:26 Respiratory Depth Normal 12/07/19 17:26 Respiratory Pattern Normal 12/07/19 17:26 Blood Pressure 114/77 12/06/19 21:29 Blood Pressure Position Supine 12/05/19 00:53 Pulse Oximetry 97 12/06/19 21:29 Oxygen Delivery Method Room Air 12/06/19 21:29 Oxygen Flow Rate 0 12/06/19 21:29 Pain Level 0 12/06/19 21:29 Comment 12/07/19 11:41 Intake & Output 12/06/19 12/07/19 12/07/19 23:59 11:59 23:59 Intake Total 500 / 1670 Balance 500 / 1670 Intake: Oral 500 / 1670 Other: Urine Color Yellow Urine Appearance Clear Comment pt woke up to void. Voiding Methods Toilet Laboratory Results WBC 6.99 k/cumm (4.4-10.8) 12/05/19 01:08 RBC 4.72 m/cumm (4.00-5.20) 12/05/19 01:08 Hgb 14.3 g/dL (12.0-15.5) 12/05/19 01:08 Hct 41.2 % (36.0-46.0) 12/05/19 01:08 MCV 87.3 fL (80-95) 12/05/19 01:08 MCH 30.3 pg (27.0-33.0) 12/05/19 01:08 MCHC 34.7 g/dL (32.0-36.0) 12/05/19 01:08 RDW 13.1 % (11.7-14.6) 12/05/19 01:08 Plt Count 275 x1000/uL (130-400) 12/05/19 01:08 MPV 9.2 fL (8.0-11.0) 12/05/19 01:08 Immature Gran % 0.1 % 12/05/19 01:08 Neutrophils % 55.6 12/05/19 01:08 Lymphocytes % 33.0 12/05/19 01:08 Monocytes % 8.4 12/05/19 01:08 Eosinophils % 2.3 12/05/19 01:08 Basophils % 0.6 12/05/19 01:08 Absolute Neutrophils 3.88 k/cumm (1.2-6.7) 12/05/19 01:08 Absolute Lymphocytes 2.31 k/cumm (1.2-3.4) 12/05/19 01:08 Absolute Monocytes 0.59 k/cumm (0.11-0.7) 12/05/19 01:08 Absolute Eosinophils 0.16 k/cumm (0.0-0.7) 12/05/19 01:08 Absolute Basophils 0.04 k/cumm (0.0-0.2) 12/05/19 01:08 PT 10.2 sec (9.3-11.0) 12/05/19 01:08 INR 1.0 (0.9-1.1) 12/05/19 01:08 APTT 24.3 sec (21.0-31.4) 12/05/19 01:08 Sodium 141 mmol/L (136-145) 12/05/19 01:08 Potassium 3.5 mmol/L (3.5-5.1) 12/05/19 01:08 Chloride 105 mmol/L (98-107) 12/05/19 01:08 Carbon Dioxide 29.0 mmol/L (21.0-32.0) 12/05/19 01:08 Anion Gap 7.0 mmol/L (3-11) 12/05/19 01:08 BUN 9 mg/dL (7-18) 12/05/19 01:08 Creatinine 1.05 mg/dL (0.55-1.02) H 12/05/19 01:08 Estimated GFR/1.73 m2 59.30 (mL/min/1.73m2) 12/05/19 01:08 Glucose 101 mg/dL (74-106) 12/05/19 01:08 Calcium 8.2 mg/dL (8.5-10.1) L 12/05/19 01:08 Total Bilirubin 0.3 mg/dL (0.2-1.0) 12/05/19 01:08 AST 31 U/L (15-37) 12/05/19 01:08 ALT 27 U/L (14-59) 12/05/19 01:08 Alkaline Phosphatase 55 U/L (46-116) 12/05/19 01:08 Total Protein 6.9 g/dL (6.4-8.2) 12/05/19 01:08 Albumin 3.5 g/dL (3.4-5.0) 12/05/19 01:08 TSH 3.02 uIU/mL (0.36-3.74) 12/05/19 01:08 Thyroxine (T4) 14.7 ug/mL (4.7-13.3) H 12/05/19 01:08 Urine Color Yellow (Yellow) 12/05/19 01:55 Urine Clarity Sl cloudy (Clear) 12/05/19 01:55 Urine pH 7.0 (5-8) 12/05/19 01:55 Ur Specific [place] 1.020 (1.005-1.025) 12/05/19 01:55 Urine Protein Negative mg/dL (Negative) 12/05/19 01:55 Urine Ketones Trace mg/dL (Negative) H 12/05/19 01:55 Urine Blood Negative (Negative) 12/05/19 01:55 Urine Nitrite Negative (Negative) 12/05/19 01:55 Urine Bilirubin Negative (Negative) 12/05/19 01:55 Urine Urobilinogen 0.2 EU/dL (Up TO 0.2) 12/05/19 01:55 Ur Leukocyte Esterase Trace (Negative) H 12/05/19 01:55 Urine RBC Negative HPF (0-2) 12/05/19 01:55 Urine WBC 3-5 HPF (0-5) 12/05/19 01:55 Ur Epithelial Cells Few HPF (Negative) 12/05/19 01:55 Urine Crystals Negative HPF (Negative) 12/05/19 01:55 Urine Bacteria Moderate HPF (Negative) 12/05/19 01:55 Urine Casts Negative LPF (Negative) 12/05/19 01:55 Urine Mucus Negative (Negative) 12/05/19 01:55 Ur Culture Indicated? Yes 12/05/19 01:55 Urine Glucose Negative mg/dL (Negative) 12/05/19 01:55 Salicylates 3.6 mg/dL (2.8-20.0) 12/05/19 01:08 Acetaminophen < 2 ug/mL (10-30) 12/05/19 01:08 Ethyl Alcohol 3.8 mg/dL (<3) 12/05/19 01:08
--- NOTE | 2019-12-07 20:25 | CMPROGNOTE_ITS ---
- If Service Date Differs Date of service: 12/07/19 Time of Service: 20:25 Care Management Progress Note S/O: Jacquelin was sitting on the floor when CM met with her. She was appropriate in interactions with CM. Fabienne, [facility] MINE SAFETY ENGINEER cyanide case hardener was present. Jacquelin continues to exhibit inappropriate behaviors while at [facility]. She has been in many states of undress, yelling/screaming profanities, spitting and throwing food/belongings around the room and hallway. She did take one of her medications last night, and she was able to sleep for a long period of time. Jacquelin was increasingly agitated upon being told by the provider that she would be going to the [facility]. CM will continue to support [facility] and staff while awaiting a bed at [facility]. CM huddled with the following participants: Doreen, RN Oil Field Laborer; Maddison, RN Coordinator; Carlota, primary RN; KIM Anderson. Per Fabienne at [facility], she was given instruction from the department of today that a QMHP did not have to evaluate Jacquelin today, and that she would need to be evaluated tomorrow. CM expressed concern, as the policy states that all patients on EE status at [facility] must be evaluated by a QMHP every 24 hours. No changes to safety plan at this time. Safety plan has been established with the care team, to adhere to patient goals, identify restrictions based on behavioral status, address nutrition, and determine allowed personal belongings, tools for hygiene and personal care. Determine level of activity including ambulation, level of supervision, visitors, and determine privileges based on behaviors and level of engagement by patient; please note safety plan below. Jacquelin was still not able to participate in developing the plan and is not able to articulate agreement. SAFETY PLAN: M/S Transition Bed #235 ADDENDUM 12/06/2019 20:38 PM 1. Will remain In Paper Clothes and on Suicide precautions. Will be given own underwear, once laundered. 2. Will remain in room under direct supervision of one-on-one staff at all times provided by CPSO; ERIC, QUIQUE lawn mower operator. 3. May have paper cups, plates, finger foods, safety spoon. Food tray is not to be left in the room with patient at any time. 4. Follow [facility] Management of the Admitted Behavioral Health Patient policy. 5. Comfort bath system and may shower with staff supervision at the discretion of nursing. 6. No cell phone at this time, personal belongings limited to glasses per RN discretion at this time. 7. No visitors at this time. 9. Bathroom privileges available in room without limitation. 10. Will remain in the M/S Transition Bed until appropriate inpatient psychiatric bed is available for admission, treatment and stabilization. 11. Limit conversations at this time; serves as a trigger point leading to escalation of behaviors. Low stimulation environment recommended. 12. TV and remote available at RN discretion. 13. Book, Paper and crayons for activity at RN discretion 14. Due to INVOLUNTARY status, the patient must remain in the hospital. Second Certification completed by Dr. Machuca and she will remain on Involuntary Status. Patient is currently involuntarily at [facility] and in need of inpatient psychiatric admission when a bed becomes available. [facility] QMHP/Frontline Produce Inspector will seek placement. No beds are available tonight. Please contact the Physical Education Teacher Dog Control Officer ([phone]) and [facility] Produce Inspector ([phone]) for any needed changes in the Safety Plan. Safety plan has been provided to interdepartmental care team including Clinical Coordinator, Nursing Oil Field Laborer
--- NOTE | 2019-12-07 20:34 | PDOC.CMSAFE ---
- If Service Date Differs Date of service: 12/07/19 Time of Service: 20:34 Care Management Safety Plan Safety plan was established with the care team earlier today to adhere to patient goals, identify restrictions based on behavioral status, address nutrition, and determine allowed personal belongings, tools for hygiene and personal care. Determine level of activity including ambulation, level of supervision, visitors, and determine privileges based on behaviors and level of engagement by patient; please note safety plan below. Jacquelin was still not able to participate in developing the plan and is not able to articulate agreement. SAFETY PLAN: M/S Transition Bed #235 ADDENDUM 12/06/2019 20:38 PM 1. Will remain In Paper Clothes and on Suicide precautions. Will be given own underwear, once laundered. 2. Will remain in room under direct supervision of one-on-one staff at all times provided by CPSO; ERIC, CUSTOMER DEVELOPMENT REPRESENTATIVE senior reservoir engineer. 3. May have paper cups, plates, finger foods, safety spoon. Food tray is not to be left in the room with patient at any time. 4. Follow [facility] Management of the Admitted Behavioral Health Patient policy. 5. Comfort bath system and may shower with staff supervision at the discretion of nursing. 6. No cell phone at this time, personal belongings limited to glasses per RN discretion at this time. 7. No visitors at this time. 9. Bathroom privileges available in room without limitation. 10. Will remain in the M/S Transition Bed until appropriate inpatient psychiatric bed is available for admission, treatment and stabilization. 11. Limit conversations at this time; serves as a trigger point leading to escalation of behaviors. Low stimulation environment recommended. 12. TV and remote available at RN discretion. 13. Book, Paper and crayons for activity at RN discretion 14. Due to INVOLUNTARY status, the patient must remain in the hospital. Second Certification completed by Dr. Machuca and she will remain on Involuntary Status. Patient is currently involuntarily at [facility] and in need of inpatient psychiatric admission when a bed becomes available. [facility]Frontline Speed Belt Sander will seek placement. No beds are available tonight. Please contact the Skilled Laborer Stone Breaker ([phone]) and [facility] Speed Belt Sander ([phone]) for any needed changes in the Safety Plan. Safety plan has been provided to interdepartmental care team including Clinical Coordinator, Nursing Project Architect
[2019-12-08] MEDS: Nicotine 4 MG LOZG SUC ×7 (00:32→21:16)
[2019-12-08 03:40] VITALS: BP 132/84; PULSE 91; RESP 19; O2SAT 95
[2019-12-08] MEDS: Levothyroxine 125 MCG TAB PO (07:08)
[2019-12-08] MEDS: Oseltamivir 75 MG CAP PO (09:26)
[2019-12-08 09:30] VITALS: BP 116/61; PULSE 98; RESP 16; TEMP 37; O2SAT 98
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
[2019-12-08 16:19] VITALS: BP 129/84; PULSE 89; RESP 19; TEMP 36.9; O2SAT 95
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
--- NOTE | 2019-12-08 17:36 | CMPROGNOTE_ITS ---
- If Service Date Differs Date of service: 12/08/19 Time of Service: 17:36 Care Management Progress Note S/O: Jacquelin was lying down when CM met with her. She appeared to be sleeping, so CM left and returned to visit with her later. Jacquelin has been increasingly agitated throughout the day, yelling and being very disruptive to other patients and staff. KIM went to meet with her as she is requesting music. Jacquelin could not stay calm during the conversation. She asked for a phone in order to make a phone call. KIM asked who she would want to call, which she responded none of your business. KIM discussed this with Fabienne [facility] ETL ARCHITECT Mixer Operator Hot Metal, who stated that she would come and assist her with a phone call to legal. Fabienne arrived and met with Jacquelin, who declined calling legal at that time. Jacquelin continues to be disruptive and inappropriate with staff. Per TENZIN Lopez, there [facility] today. They will reassess tomorrow. KIM huddled with the following participants: Beth, RN Linux Systems Administrator; Katerine, AGUILAR Coordinator; Chanel, primary RN; John [facility]; KIM Anderson. John stated that per Department of , a QMHP must see Jacquelin daily, but she does not need to be seen twice a day, only once, as long as it is by a QMHP. Safety plan has been established with the care team, to adhere to patient goals, identify restrictions based on behavioral status, address nutrition, and determine allowed personal belongings, tools for hygiene and personal care. Determine level of activity including ambulation, level of supervision, visitors, and determine privileges based on behaviors and level of engagement by patient; please note safety plan below. Jacquelin was still not able to participate in developing the plan and is not able to articulate agreement. SAFETY PLAN: M/S Transition Bed #235 ADDENDUM 12/06/2019 20:38 PM 1. Will remain In Paper Clothes and on Suicide precautions. Will be given own underwear, once laundered. 2. Will remain in room under direct supervision of one-on-one staff at all times provided by [employer]; ERIC, CONSTRUCTION HELPER category director. 3. May have paper cups, plates, finger foods, safety spoon. Food tray is not to be left in the room with patient at any time. 4. Follow [facility] Management of the Admitted Behavioral Health Patient policy. 5. Comfort bath system and may shower with staff supervision at the discretion of nursing. 6. No cell phone at this time, personal belongings limited to glasses per RN discretion at this time. 7. No visitors at this time. 9. Bathroom privileges available in room without limitation. 10. Will remain in the M/S Transition Bed until appropriate inpatient psychiatric bed is available for admission, treatment and stabilization. 11. Limit conversations at this time; serves as a trigger point leading to escalation of behaviors. Low stimulation environment recommended. 12. TV and remote available at RN discretion. Jacquelin may listen to music, provided by a device held and controlled by CPSO at all times, at the discretion of staff. 13. Book, Paper and crayons for activity at RN discretion 14. Due to INVOLUNTARY status, the patient must remain in the hospital. Second Certification completed by Dr. Machuca and she will remain on Involuntary Status. Patient is currently involuntarily at [facility] and in need of inpatient psychiatric admission when a bed becomes available. [facility] QMHP/Frontline Bulldozer/Loader/Compactor/Scraper will seek placement. No beds are available tonight. Please contact the Coat Tailor Electrical Products Engineer ([phone]) and [facility] Bulldozer/Loader/Compactor/Scraper ([phone]) for any needed changes in the Safety Plan. Safety plan has been provided to interdepartmental care team including Clinical Coordinator, Nursing Linux Systems Administrator
--- NOTE | 2019-12-08 17:54 | CMSP_ITS ---
- If Service Date Differs Date of service: 12/08/19 Time of Service: 17:54 Care Management Safety Plan Safety plan has been established with the care team, to adhere to patient goals, identify restrictions based on behavioral status, address nutrition, and determine allowed personal belongings, tools for hygiene and personal care. Determine level of activity including ambulation, level of supervision, visitors, and determine privileges based on behaviors and level of engagement by patient; please note safety plan below. Jacquelin was still not able to participate in developing the plan and is not able to articulate agreement. SAFETY PLAN: M/S Transition Bed #235 ADDENDUM 12/06/2019 20:38 PM 1. Will remain In Paper Clothes and on Suicide precautions. Will be given own underwear, once laundered. 2. Will remain in room under direct supervision of one-on-one staff at all times provided by CPSO; ERIC, SOFTWARE DEVELOPER MID LEVEL files supervisor. 3. May have paper cups, plates, finger foods, safety spoon. Food tray is not to be left in the room with patient at any time. 4. Follow [facility] Management of the Admitted Behavioral Health Patient policy. 5. Comfort bath system and may shower with staff supervision at the discretion of nursing. 6. No cell phone at this time, personal belongings limited to glasses per RN discretion at this time. 7. No visitors at this time. 9. Bathroom privileges available in room without limitation. 10. Will remain in the M/S Transition Bed until appropriate inpatient psychiatric bed is available for admission, treatment and stabilization. 11. Limit conversations at this time; serves as a trigger point leading to escalation of behaviors. Low stimulation environment recommended. 12. TV and remote available at RN discretion. May listen to music, provided by a device held and controlled by CPSO at all times, at the discretion of staff. 13. Book, Paper and crayons for activity at RN discretion 14. Due to INVOLUNTARY status, the patient must remain in the hospital. Second Certification completed by Dr. Machuca and she will remain on Involuntary Status. Patient is currently involuntarily at [facility] and in need of inpatient psychiatric admission when a bed becomes available. [facility] QMHP/Frontline Computer Aided Design Operator will seek placement. No beds are available tonight. Please contact the [place] Grievance And Appeals Coordinator ([phone]) and [facility] Computer Aided Design Operator ([phone]) for any needed changes in the Safety Plan. Safety plan has been provided to interdepartmental care team including Clinical Coordinator, Nursing Physician
[2019-12-08 20:22] VITALS: BP 125/89; PULSE 107; RESP 20; TEMP 36.3; O2SAT 98
[2019-12-08] MEDS: Acetaminophen 325 MG TAB 650 MG PO (21:16)
[2019-12-09] MEDS: Nicotine 4 MG LOZG SUC ×6 (02:00→21:08)
[2019-12-09 02:12] VITALS: BP 113/77; PULSE 82; RESP 18; TEMP 36.2
[2019-12-09] MEDS: Levothyroxine 125 MCG TAB PO (05:58)
[2019-12-09] MEDS: Oseltamivir 75 MG CAP PO (08:32)
--- NOTE | 2019-12-09 10:45 | PDOC.MHCN ---
Date of service: 12/10/19 Time of Service: 10:26 Mental Health Crisis Note Presenting Issue How did you arrive at the ED and why did you come: Client was brought to the ED by Police after being found in 20 below weather screaming and yelling. Precipitating Factors Client denies S/I or H/I but sates, I want to go home and watch my father . Disposition BEHAVIOR: Client showed minimal cooperation, refused to engage in her assessment after only a short period of time. She is not taking any medications, she has ripped the padded doors off their velcro attachments and thrown them on the floow. She was seated on one fo these doors in the corner, wearing a hospital gown, surrounded by crayons and coloring boks. She was crying and yelling and angry. She stated she does not want anything to do with [facility]. Staff reports she has been crying and screaming and running around naked. EYE CONTACT: Her eye contact was varied between fixed and glaring to avoident. MOOD: Withdrawn and angry. AFFECT: Animated with manic signs. APPETITE: The client reports it is appropriate. SLEEP(trouble falling/staying asleep: The client reports that it is adequate. Plan Continue to keep on Involuntary Status as the client is still a person in need of treatment.
[2019-12-09 10:55] VITALS: BP 112/78; PULSE 87; RESP 20; TEMP 36.8; O2SAT 94
--- NOTE | 2019-12-09 15:09 | W.PM.PROGNOT ---
Date of Service Date of service: 12/09/19 Time of Service: 15:09 Assessment and Plan Assessment and plan (1) Cough: Status: Acute Assessment and plan: patient with c/o cough, hemodynamically stable with benign exam but was exposed to influenza and is on prophylaxis. will order cxr, cbc, cmp (2) Acute psychosis: Status: Acute Assessment and plan: continues to remain psychotic. continue to encourage psychiatric medications. mental health following, is awaiting inpatient psychiatric bed. case management following. (3) Hypothyroidism: Status: Chronic Assessment and plan: TSH on december 06 was 3.02 (4) Schizophrenia: Status: Chronic Assessment and plan: continue to encourage psychatric medications (5) Tobacco abuse: Status: Acute Assessment and plan: nicotine replacement while hospitalized. (6) DVT prophylaxis: Status: Acute Assessment and plan: not required in an ambulatory patient <40 years old. (7) Discharge planning issues: Status: Acute Assessment and plan: Full code Under EE Until psychiatric placement can be secured. Subjective Subjective Interval history since last seen: complaining of cough and lungs burning. she is still refusing all psychiatric medications. she has been hemodynamically stable with no fevers. she tells me she has been a prisoner of war because she is maltese and was in [place] in isolation for six months accordingly. she discusses an appointment where an cost consultant used a scapel to cut her vagina stating that she needs repair at some point and that she has saved 1000 for the repair. she is inquiring if I know if she can get it fixed for 1000 and if so where. I have tried to redirect her without success. Exam Const General: cooperative, healthy appearing, comfortable and no acute distress Nutritional Appearance: overweight Orientation: alert, awake, oriented to person and oriented to place (and situation) [facility] Head: normal to inspection, normocephalic and atraumatic Nose image: 1. split lip, no bleeding Mouth: oral mucosae normal and moist mucous membranes abnormal Resp Effort & Inspection: normal respiratory effort and cough Auscultation: clear to auscultation bilaterally Cardio Rate: regular rate Rhythm: regular rhythm GI Inspection: normal to inspection and obesity Palpation: soft Auscultation: normal bowel sounds Skin General skin exam: no rashes or lesions noted Neuro General: alert, awake and oriented x3 Extrem General: normal to inspection, full ROM and no pedal edema Psych Appearance: grossly normal Mental Status: mental status grossly normal Speech and Movement: speech and movement normal Mood: irritable mood Affect: irritable affect Attitude: cooperative Thought Process: illogical Thought Content: delusions Insight: poor Judgment: poor Objective Objective Clinical Data: Vital Signs Temperature 36.8 C 12/09/19 10:55 Temperature Source Tympanic 12/09/19 10:55 Pulse 87 12/09/19 10:55 Pulse Rhythm Regular 12/09/19 08:30 Respiratory Rate 12/09/19 10:55 Respiratory Effort 12/09/19 08:30 Respiratory Depth Normal 12/09/19 08:30 Respiratory Pattern Normal 12/09/19 08:30 Blood Pressure 112/78 12/09/19 10:55 Blood Pressure Position Supine 12/05/19 00:53 Pulse Oximetry 94 L 12/09/19 10:55 Oxygen Delivery Method Room Air 12/09/19 10:55 Oxygen Flow Rate 0 12/09/19 10:55 Pain Level 0 12/09/19 10:55 Comment 12/08/19 03:40 Intake & Output 12/08/19 12/09/19 12/09/19 23:59 11:59 23:59 Intake Total 480 / 1200 240 / 240 Balance 480 / 1200 240 / 240 Intake: Oral 480 / 1200 240 / 240 Laboratory Results WBC 6.99 k/cumm (4.4-10.8) 12/05/19 01:08 RBC 4.72 m/cumm (4.00-5.20) 12/05/19 01:08 Hgb 14.3 g/dL (12.0-15.5) 12/05/19 01:08 Hct 41.2 % (36.0-46.0) 12/05/19 01:08 MCV 87.3 fL (80-95) 12/05/19 01:08 MCH 30.3 pg (27.0-33.0) 12/05/19 01:08 MCHC 34.7 g/dL (32.0-36.0) 12/05/19 01:08 RDW 13.1 % (11.7-14.6) 12/05/19 01:08 Plt Count 275 x1000/uL (130-400) 12/05/19 01:08 MPV 9.2 fL (8.0-11.0) 12/05/19 01:08 Immature Gran % 0.1 % 12/05/19 01:08 Neutrophils % 55.6 12/05/19 01:08 Lymphocytes % 33.0 12/05/19 01:08 Monocytes % 8.4 12/05/19 01:08 Eosinophils % 2.3 12/05/19 01:08 Basophils % 0.6 12/05/19 01:08 Absolute Neutrophils 3.88 k/cumm (1.2-6.7) 12/05/19 01:08 Absolute Lymphocytes 2.31 k/cumm (1.2-3.4) 12/05/19 01:08 Absolute Monocytes 0.59 k/cumm (0.11-0.7) 12/05/19 01:08 Absolute Eosinophils 0.16 k/cumm (0.0-0.7) 12/05/19 01:08 Absolute Basophils 0.04 k/cumm (0.0-0.2) 12/05/19 01:08 PT 10.2 sec (9.3-11.0) 12/05/19 01:08 INR 1.0 (0.9-1.1) 12/05/19 01:08 APTT 24.3 sec (21.0-31.4) 12/05/19 01:08 Sodium 141 mmol/L (136-145) 12/05/19 01:08 Potassium 3.5 mmol/L (3.5-5.1) 12/05/19 01:08 Chloride 105 mmol/L (98-107) 12/05/19 01:08 Carbon Dioxide 29.0 mmol/L (21.0-32.0) 12/05/19 01:08 Anion Gap 7.0 mmol/L (3-11) 12/05/19 01:08 BUN 9 mg/dL (7-18) 12/05/19 01:08 Creatinine 1.05 mg/dL (0.55-1.02) H 12/05/19 01:08 Estimated GFR/1.73 m2 59.30 (mL/min/1.73m2) 12/05/19 01:08 Glucose 101 mg/dL (74-106) 12/05/19 01:08 Calcium 8.2 mg/dL (8.5-10.1) L 12/05/19 01:08 Total Bilirubin 0.3 mg/dL (0.2-1.0) 12/05/19 01:08 AST 31 U/L (15-37) 12/05/19 01:08 ALT 27 U/L (14-59) 12/05/19 01:08 Alkaline Phosphatase 55 U/L (46-116) 12/05/19 01:08 Total Protein 6.9 g/dL (6.4-8.2) 12/05/19 01:08 Albumin 3.5 g/dL (3.4-5.0) 12/05/19 01:08 TSH 3.02 uIU/mL (0.36-3.74) 12/05/19 01:08 Thyroxine (T4) 14.7 ug/mL (4.7-13.3) H 12/05/19 01:08 Urine Color Yellow (Yellow) 12/05/19 01:55 Urine Clarity Sl cloudy (Clear) 12/05/19 01:55 Urine pH 7.0 (5-8) 12/05/19 01:55 Ur Specific [place] 1.020 (1.005-1.025) 12/05/19 01:55 Urine Protein Negative mg/dL (Negative) 12/05/19 01:55 Urine Ketones Trace mg/dL (Negative) H 12/05/19 01:55 Urine Blood Negative (Negative) 12/05/19 01:55 Urine Nitrite Negative (Negative) 12/05/19 01:55 Urine Bilirubin Negative (Negative) 12/05/19 01:55 Urine Urobilinogen 0.2 EU/dL (Up TO 0.2) 12/05/19 01:55 Ur Leukocyte Esterase Trace (Negative) H 12/05/19 01:55 Urine RBC Negative HPF (0-2) 12/05/19 01:55 Urine WBC 3-5 HPF (0-5) 12/05/19 01:55 Ur Epithelial Cells Few HPF (Negative) 12/05/19 01:55 Urine Crystals Negative HPF (Negative) 12/05/19 01:55 Urine Bacteria Moderate HPF (Negative) 12/05/19 01:55 Urine Casts Negative LPF (Negative) 12/05/19 01:55 Urine Mucus Negative (Negative) 12/05/19 01:55 Ur Culture Indicated? Yes 12/05/19 01:55 Urine Glucose Negative mg/dL (Negative) 12/05/19 01:55 Salicylates 3.6 mg/dL (2.8-20.0) 12/05/19 01:08 Acetaminophen < 2 ug/mL (10-30) 12/05/19 01:08 Ethyl Alcohol 3.8 mg/dL (<3) 12/05/19 01:08
--- NOTE | 2019-12-09 15:27 | DI.RAD_ITS ---
EXAM: XR PORTABLE CHEST AP CLINICAL HISTORY: COUGH. TECHNIQUE: 2D digital imaging was performed. The patient requested a thyroid shield. COMPARISON: No exams were available for comparison FINDINGS: LUNGS: Clear. No pleural abnormality seen. HEART: Normal. MEDIASTINUM: Normal. OTHER FINDINGS: None. IMPRESSION: No acute pulmonary findings.
[2019-12-09 15:38] LABS: Absolute Basophil Count 0.06 k/cumm (0.0-0.2); Absolute Eosinophil Count 0.17 k/cumm (0.0-0.7); Absolute Lymphocyte Count 1.57 k/cumm (1.2-3.4); Absolute Monocyte Count 0.47 k/cumm (0.11-0.7); Absolute Neutrophil Count 3.47 k/cumm (1.2-6.7); HCT 41.3 % (36.0-46.0); Lymphocytes % 27.4; Mean Corp. HGB Concentration 33.9 g/dL (32.0-36.0); Mean Corpuscular Volume 88.4 fL (80-95); Mean Platelet Volume 9.8 fL (8.0-11.0); Monocytes % 8.2; Neutrophils % 60.4; Platelet Count 236 x1000/uL (130-400); RBC 4.67 m/cumm (4.00-5.20); RBC Distribution Width 13.3 % (11.7-14.6); White Blood Cell Count 5.74 k/cumm (4.4-10.8)
[2019-12-09 15:43] VITALS: BP 135/85; PULSE 90; RESP 18; TEMP 36.9; O2SAT 99
[2019-12-09 15:51] LABS: ALT 38 U/L (14-59); AST 34 U/L (15-37); Albumin 3.5 g/dL (3.4-5.0); Alkaline Phosphatase 53 U/L (46-116); BUN 9 mg/dL (7-18); Bilirubin, Total 0.2 mg/dL (0.2-1.0); CREATININE 0.77 mg/dL (0.55-1.02); Calcium 8.6 mg/dL (8.5-10.1); Chloride 106 mmol/L (98-107); Glucose 93 mg/dL (74-106); Potassium 4.1 mmol/L (3.5-5.1); Sodium 142 mmol/L (136-145); Total Protein 6.9 g/dL (6.4-8.2)
--- NOTE | 2019-12-09 17:46 | PDOC.CMPRO ---
- If Service Date Differs Date of service: 12/09/19 Time of Service: 17:46 Care Management Progress Note S/O: Jacquelin was pacing around the room when CM met with her. She asked CM if she could have a nicotine lozenge, as well as the nicatrol inhaler, which she currently has. CM asked the provider, who agreed that she can have both. Jacquelin has been appropriate in interactions today. Per RN, Jacquelin was feeling under the weather today. Jacquelin had a chest x ray, which was negative. Per ANAMIKA Esquivel, Ana is still reviewing her referral. [facility]'s acuity level is too high to accept Jacquelin today. CM huddled with the following participants: ANAMIKA Esquivel; Aria, Primary RN; AGUILAR Campos Securities Broker; KIM Anderson. No changes to Safety Plan today. Safety plan has been established with the care team, to adhere to patient goals, identify restrictions based on behavioral status, address nutrition, and determine allowed personal belongings, tools for hygiene and personal care. Determine level of activity including ambulation, level of supervision, visitors, and determine privileges based on behaviors and level of engagement by patient; please note safety plan below. Jacquelin was still not able to participate in developing the plan and is not able to articulate agreement. SAFETY PLAN: M/S Transition Bed #235 ADDENDUM 12/06/2019 20:38 PM 1. Will remain In Paper Clothes and on Suicide precautions. Will be given own underwear, once laundered. 2. Will remain in room under direct supervision of one-on-one staff at all times provided by [employer]; ERIC, AUTO SPECIALTY SERVICES MANAGER human resources project coordinator. 3. May have paper cups, plates, finger foods, safety spoon. Food tray is not to be left in the room with patient at any time. 4. Follow [facility] Management of the Admitted Behavioral Health Patient policy. 5. Comfort bath system and may shower with staff supervision at the discretion of nursing. 6. No cell phone at this time, personal belongings limited to glasses per RN discretion at this time. 7. No visitors at this time. 9. Bathroom privileges available in room without limitation. 10. Will remain in the M/S Transition Bed until appropriate inpatient psychiatric bed is available for admission, treatment and stabilization. 11. Limit conversations at this time; serves as a trigger point leading to escalation of behaviors. Low stimulation environment recommended. 12. TV and remote available at RN discretion. Jacquelin may listen to music, provided by a device held and controlled by [employer] at all times, at the discretion of staff. 13. Book, Paper and crayons for activity at RN discretion 14. Due to INVOLUNTARY status, the patient must remain in the hospital. Second Certification completed by Dr. Machuca and she will remain on Involuntary Status. Patient is currently involuntarily at [facility] and in need of inpatient psychiatric admission when a bed becomes available. [facility]/Frontline Casino Gaming Worker will seek placement. No beds are available tonight. Please contact the Driller Brake Lining Ham Doctor ([phone]) and [facility] Casino Gaming Worker ([phone]) for any needed changes in the Safety Plan. Safety plan has been provided to interdepartmental care team including Clinical Coordinator, Nursing Securities Broker
--- NOTE | 2019-12-09 17:52 | PDOC.CMSAFE ---
- If Service Date Differs Date of service: 12/09/19 Time of Service: 17:52 Care Management Safety Plan Safety plan has been established with the care team, to adhere to patient goals, identify restrictions based on behavioral status, address nutrition, and determine allowed personal belongings, tools for hygiene and personal care. Determine level of activity including ambulation, level of supervision, visitors, and determine privileges based on behaviors and level of engagement by patient; please note safety plan below. Jacquelin was still not able to participate in developing the plan and is not able to articulate agreement. SAFETY PLAN: M/S Transition Bed #235 ADDENDUM 12/06/2019 20:38 PM 1. Will remain In Paper Clothes and on Suicide precautions. Will be given own underwear, once laundered. 2. Will remain in room under direct supervision of one-on-one staff at all times provided by [employer]; ERIC, CLAY PROCESSING LABOURER computed tomography scanner operator. 3. May have paper cups, plates, finger foods, safety spoon. Food tray is not to be left in the room with patient at any time. 4. Follow [facility] Management of the Admitted Behavioral Health Patient policy. 5. Comfort bath system and may shower with staff supervision at the discretion of nursing. 6. No cell phone at this time, personal belongings limited to glasses per RN discretion at this time. 7. No visitors at this time. 9. Bathroom privileges available in room without limitation. 10. Will remain in the M/S Transition Bed until appropriate inpatient psychiatric bed is available for admission, treatment and stabilization. 11. Limit conversations at this time; serves as a trigger point leading to escalation of behaviors. Low stimulation environment recommended. 12. TV and remote available at RN discretion. Jacquelin may listen to music, provided by a device held and controlled by CPSO at all times, at the discretion of staff. 13. Book, Paper and crayons for activity at RN discretion 14. Due to INVOLUNTARY status, the patient must remain in the hospital. Second Certification completed by Dr. Machuca and she will remain on Involuntary Status. Patient is currently involuntarily at [facility] and in need of inpatient psychiatric admission when a bed becomes available. [facility]/Frontline Director Talent Management will seek placement. No beds are available tonight. Please contact the Group Leader Semiconductor Processing Cutter Tender ([phone]) and [facility] Director Talent Management ([phone]) for any needed changes in the Safety Plan. Safety plan has been provided to interdepartmental care team including Clinical Coordinator, Nursing Classification And Treatment Director
[2019-12-09] MEDS: Acetaminophen 325 MG TAB 650 MG PO (19:21)
[2019-12-10] MEDS: LORazepam 1 MG TAB PO (00:17)
[2019-12-10] MEDS: Acetaminophen 325 MG TAB 650 MG PO (00:17)
[2019-12-10 00:39] VITALS: BP 119/82; PULSE 116; RESP 14; TEMP 36.6; O2SAT 100
[2019-12-10] MEDS: Oseltamivir 75 MG CAP PO (07:51)
[2019-12-10] MEDS: Levothyroxine 125 MCG TAB PO (07:51)
[2019-12-10] MEDS: Nicotine 4 MG LOZG SUC ×7 (07:51→22:40)
[2019-12-10 08:19] VITALS: BP 120/89; PULSE 129; RESP 18; TEMP 36.9; O2SAT 98
--- NOTE | 2019-12-10 10:55 | PDOC.MHCN ---
Date of service: 12/10/19 Time of Service: 10:55 Mental Health Crisis Note Presenting Issue How did you arrive at the ED and why did you come: Patient was brought to ED by [facility] and placed on EE status . Disposition BEHAVIOR: Patient was found outside at 20 below zero, yelling and screaming. She refused voluntary help. She has not been medication compliant. She denies H/I or S/I. Patient is highly delusional, believing that she has provided therapy to Dr. Neal and and she can no longer treat him. She wants to go home and write her thesis regarding her treatment of him and his progress. EYE CONTACT: Patient's eye contact was appropriate today, she made and held appropriate eye contact. MOOD: Patient presented as manic and delusional. She was not open to accepting alternatives or anything less than what she was demanding. AFFECT: Unremarkable. APPETITE: Patient reports she is eating appropriately. SLEEP(trouble falling/staying asleep: Patient reports she is getting adequately sleep. When asked what that meant she said look up adequate in the dictionary. Plan Patient is still a person in need of treatment. She is highly delusional, and does not posses the rational capacity to make rational judgments for her own well being, safety or the safety of others.
--- NOTE | 2019-12-10 13:49 | W.PM.PROGNOT ---
Date of Service Date of service: 12/10/19 Time of Service: 13:49 Assessment and Plan Assessment and plan (1) Exposure to influenza: Status: Acute Assessment and plan: Patient was reporting a cough yesterday labs and chest x-ray unremarkable lung exam shows clear bilaterally with no wheezing or coarse breath sounds, she has been afebrile and hemodynamically stable. She has had no further complaints today. She continues to receive Tamiflu prophylaxis and will continue to complete a 14-day course (2) Acute psychosis: Status: Acute Assessment and plan: continues to remain psychotic. continue to encourage psychiatric medications. mental health following, is awaiting inpatient psychiatric bed. case management following. (3) Hypothyroidism: Status: Chronic Assessment and plan: TSH on december 06 was 3.02, Continue current dose of Synthroid (4) Schizophrenia: Status: Chronic Assessment and plan: Still refusing medications, continue to encourage psychatric medications (5) DVT prophylaxis: Status: Acute Assessment and plan: not required in an ambulatory patient <40 years old. (6) Tobacco abuse: Status: Acute Assessment and plan: nicotine replacement while hospitalized. (7) Discharge planning issues: Status: Acute Assessment and plan: Full code Under EE Until psychiatric placement can be secured. Subjective Subjective Patient reports: no new complaints Interval history since last seen: Continues to not take her psychiatric medications. Has had no fevers is hemodynamically stable eating and drinking Exam Narrative Exam Narrative: General: cooperative, healthy appearing, comfortable and no acute distress Nutritional Appearance: overweight Orientation: alert, awake, oriented to person and oriented to place (and situation) [facility] Head: normal to inspection, normocephalic and atraumatic 1. split lip, no bleeding Mouth: oral mucosae normal and moist mucous membranes abnormal Resp Effort & Inspection: normal respiratory effort and cough Auscultation: clear to auscultation bilaterally Cardio Rate: regular rate Rhythm: regular rhythm GI Inspection: normal to inspection and obesity Palpation: soft Auscultation: normal bowel sounds Skin General skin exam: no rashes or lesions noted Neuro General: alert, awake and oriented x3 Extrem General: normal to inspection, full ROM and no pedal edema Psych Appearance: grossly normal Mental Status: mental status grossly normal Speech and Movement: speech and movement normal Mood: irritable mood Affect: irritable affect Attitude: cooperative Thought Process: illogical Thought Content: delusions Insight: poor Judgment: poor Objective Objective Clinical Data: Vital Signs Temperature 36.9 C 12/10/19 08:19 Temperature Source Tympanic 12/10/19 08:19 Pulse 129 H 12/10/19 08:19 Pulse Rhythm Regular 12/10/19 07:45 Respiratory Rate 18 12/10/19 08:19 Respiratory Effort Non-Labored 12/10/19 07:45 Respiratory Depth Normal 12/10/19 07:45 Respiratory Pattern Normal 12/10/19 07:45 Blood Pressure 120/89 12/10/19 08:19 Blood Pressure Position Supine 12/05/19 00:53 Pulse Oximetry 98 12/10/19 08:19 Oxygen Delivery Method Room Air 12/10/19 08:19 Oxygen Flow Rate 0 12/10/19 08:19 Pain Level 0 12/10/19 08:19 Comment 12/09/19 15:43 Intake & Output 12/09/19 12/10/19 12/10/19 23:59 11:59 23:59 Intake Total 480 / 720 Balance 480 / 720 Intake: Oral 480 / 720 Other: Comment up to urinate Stool Size Large Stool Characteristics Soft Formed Voiding Methods Toilet Toilet Laboratory Results WBC 5.74 k/cumm (4.4-10.8) 12/09/19 15:26 RBC 4.67 m/cumm (4.00-5.20) 12/09/19 15:26 Hgb 14.0 g/dL (12.0-15.5) 12/09/19 15:26 Hct 41.3 % (36.0-46.0) 12/09/19 15:26 MCV 88.4 fL (80-95) 12/09/19 15:26 MCH 30.0 pg (27.0-33.0) 12/09/19 15:26 MCHC 33.9 g/dL (32.0-36.0) 12/09/19 15:26 RDW 13.3 % (11.7-14.6) 12/09/19 15:26 Plt Count 236 x1000/uL (130-400) 12/09/19 15:26 MPV 9.8 fL (8.0-11.0) 12/09/19 15:26 Immature Gran % 0.0 % 12/09/19 15:26 Neutrophils % 60.4 12/09/19 15:26 Lymphocytes % 27.4 12/09/19 15:26 Monocytes % 8.2 12/09/19 15: Eosinophils % 3.0 12/09/19 15: Basophils % 1.0 12/09/19 15: Absolute Neutrophils 3.47 k/cumm (1.2-6.7) 12/09/19 15: Absolute Lymphocytes 1.57 k/cumm (1.2-3.4) 12/09/19 15: Absolute Monocytes 0.47 k/cumm (0.11-0.7) 12/09/19 15: Absolute Eosinophils 0.17 k/cumm (0.0-0.7) 12/09/19 15: Absolute Basophils 0.06 k/cumm (0.0-0.2) 12/09/19 15: PT 10.2 sec (9.3-11.0) 12/05/19 01:08 INR 1.0 (0.9-1.1) 12/05/19 01:08 APTT 24.3 sec (21.0-31.4) 12/05/19 01:08 Sodium 142 mmol/L (136-145) 12/09/19 15: Potassium 4.1 mmol/L (3.5-5.1) 12/09/19 15: Chloride 106 mmol/L (98-107) 12/09/19 15: Carbon Dioxide 27.0 mmol/L (21.0-32.0) 12/09/19 15: Anion Gap 9.0 mmol/L (3-11) 12/09/19 15:26 BUN 9 mg/dL (7-18) 12/09/19 15:26 Creatinine 0.77 mg/dL (0.55-1.02) 12/09/19 15:26 Estimated GFR/1.73 m2 >= 60.00 (mL/min/1.73m2) 12/09/19 15: Glucose 93 mg/dL (74-106) 12/09/19 15:26 Calcium 8.6 mg/dL (8.5-10.1) 12/09/19 15:26 Total Bilirubin 0.2 mg/dL (0.2-1.0) 12/09/19 15:26 AST 34 U/L (15-37) 12/09/19 15:26 ALT 38 U/L (14-59) 12/09/19 15:26 Alkaline Phosphatase 53 U/L (46-116) 12/09/19 15:26 Total Protein 6.9 g/dL (6.4-8.2) 12/09/19 15:26 Albumin 3.5 g/dL (3.4-5.0) 12/09/19 15: TSH 3.02 uIU/mL (0.36-3.74) 12/05/19 01:08 Thyroxine (T4) 14.7 ug/mL (4.7-13.3) H 12/05/19 01:08 Urine Color Yellow (Yellow) 12/05/19 01:55 Urine Clarity Sl cloudy (Clear) 12/05/19 01:55 Urine pH 7.0 (5-8) 12/05/19 01:55 Ur Specific Randolph 1.020 (1.005-1.025) 12/05/19 01:55 Urine Protein Negative mg/dL (Negative) 12/05/19 01:55 Urine Ketones Trace mg/dL (Negative) H 12/05/19 01:55 Urine Blood Negative (Negative) 12/05/19 01:55 Urine Nitrite Negative (Negative) 12/05/19 01:55 Urine Bilirubin Negative (Negative) 12/05/19 01:55 Urine Urobilinogen 0.2 EU/dL (Up TO 0.2) 12/05/19 01:55 Ur Leukocyte Esterase Trace (Negative) H 12/05/19 01:55 Urine RBC Negative HPF (0-2) 12/05/19 01:55 Urine WBC 3-5 HPF (0-5) 12/05/19 01:55 Ur Epithelial Cells Few HPF (Negative) 12/05/19 01:55 Urine Crystals Negative HPF (Negative) 12/05/19 01:55 Urine Bacteria Moderate HPF (Negative) 12/05/19 01:55 Urine Casts Negative LPF (Negative) 12/05/19 01:55 Urine Mucus Negative (Negative) 12/05/19 01:55 Ur Culture Indicated? Yes 12/05/19 01:55 Urine Glucose Negative mg/dL (Negative) 12/05/19 01:55 Salicylates 3.6 mg/dL (2.8-20.0) 12/05/19 01:08 Acetaminophen < 2 ug/mL (10-30) 12/05/19 01:08 Ethyl Alcohol 3.8 mg/dL (<3) 12/05/19 01:08
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
--- NOTE | 2019-12-10 13:57 | PDOC.CMSAFE ---
- If Service Date Differs Date of service: 12/10/19 Time of Service: 13:57 Care Management Safety Plan Safety plan has been established with the care team, to adhere to patient goals, identify restrictions based on behavioral status, address nutrition, and determine allowed personal belongings, tools for hygiene and personal care. Determine level of activity including ambulation, level of supervision, visitors, and determine privileges based on behaviors and level of engagement by patient; please note safety plan below. Jacquelin was still not able to participate in developing the plan and is not able to articulate agreement. SAFETY PLAN: M/S Transition Bed #235 ADDENDUM 12/06/2019 20:38 PM 1. Will remain In Paper Clothes and on Suicide precautions. Will be given own underwear, once laundered. 2. Will remain in room under direct supervision of one-on-one staff at all times provided by [employer]; ERIC, ACID POLYMERIZATION OPERATOR logistics support. 3. May have paper cups, plates, finger foods, safety spoon. Food tray is not to be left in the room with patient at any time. 4. Follow [facility] Management of the Admitted Behavioral Health Patient policy. 5. Comfort bath system and may shower with staff supervision at the discretion of nursing. 6. No cell phone at this time, personal belongings limited to glasses per RN discretion at this time. 7. No visitors at this time. 9. Bathroom privileges available in room without limitation. 10. Will remain in the M/S Transition Bed until appropriate inpatient psychiatric bed is available for admission, treatment and stabilization. 11. Limit conversations at this time; serves as a trigger point leading to escalation of behaviors. Low stimulation environment recommended. 12. TV and remote available at RN discretion. Jacquelin may listen to music, provided by a device held and controlled by CPSO at all times, at the discretion of staff. 13. Book, Paper and crayons for activity at RN discretion 14. Due to INVOLUNTARY status, the patient must remain in the hospital. Second Certification completed by Dr. Machuca and she will remain on Involuntary Status. Patient is currently involuntarily at [facility] and in need of inpatient psychiatric admission when a bed becomes available. [facility] QMHP/Frontline Experienced Truck Driver will seek placement. No beds are available tonight. Please contact the Firewood Cutter White Sugar Boiler ([phone]) and [facility] Experienced Truck Driver ([phone]) for any needed changes in the Safety Plan. Safety plan has been provided to interdepartmental care team including Clinical Coordinator, Nursing Director Of Global Talent
--- NOTE | 2019-12-10 14:06 | NUR.NOTE ---
Nursing Note: Patient walks out of the bathroom and stated I know I am not supposed to know, No Shit, Patient then walked back in bathroom.
--- NOTE | 2019-12-10 14:21 | NUR.NOTE ---
Nursing Note: Patient is talk to herself in her room
--- NOTE | 2019-12-10 14:28 | NUR.NOTE ---
Nursing Note: Patient states there are radio-waves in the hospital hurting me
--- NOTE | 2019-12-10 15:51 | PDOC.CMPRO ---
- If Service Date Differs Date of service: 12/10/19 Time of Service: 15:52 Care Management Progress Note S/O: Jacquelin has been more receptive to placement today, as she is unhappy about being held here. Per ANAMIKA Esquivel, [facility] has an open bed and they are considering her for admission today. CM sent updated clinicals, labs, medication lists, and nursing shift assessments, as requested by [facility]. CM huddled with the following participants: ANAMIKA Esquivel; Beth RN Family Support Worker; AGUILAR Garcias Coordinator; KIM Anderson. CM updated Primary RN also. No changes to the safety plan today. Safety plan has been established with the care team, to adhere to patient goals, identify restrictions based on behavioral status, address nutrition, and determine allowed personal belongings, tools for hygiene and personal care. Determine level of activity including ambulation, level of supervision, visitors, and determine privileges based on behaviors and level of engagement by patient; please note safety plan below. Jacquelin was still not able to participate in developing the plan and is not able to articulate agreement. SAFETY PLAN: M/S Transition Bed #235 ADDENDUM 12/06/2019 20:38 PM 1. Will remain In Paper Clothes and on Suicide precautions. Will be given own underwear, once laundered. 2. Will remain in room under direct supervision of one-on-one staff at all times provided by [employer]; ERIC, METER READER collar shaper operator. 3. May have paper cups, plates, finger foods, safety spoon. Food tray is not to be left in the room with patient at any time. 4. Follow [facility] Management of the Admitted Behavioral Health Patient policy. 5. Comfort bath system and may shower with staff supervision at the discretion of nursing. 6. No cell phone at this time, personal belongings limited to glasses per RN discretion at this time. 7. No visitors at this time. 9. Bathroom privileges available in room without limitation. 10. Will remain in the M/S Transition Bed until appropriate inpatient psychiatric bed is available for admission, treatment and stabilization. 11. Limit conversations at this time; serves as a trigger point leading to escalation of behaviors. Low stimulation environment recommended. 12. TV and remote available at RN discretion. Jacquelin may listen to music, provided by a device held and controlled by CPSO at all times, at the discretion of staff. 13. Book, Paper and crayons for activity at RN discretion 14. Due to INVOLUNTARY status, the patient must remain in the hospital. Second Certification completed by Dr. Machuca and she will remain on Involuntary Status. Patient is currently involuntarily at [facility] and in need of inpatient psychiatric admission when a bed becomes available. [facility] QMHP/Frontline Sales Operations Associate will seek placement. No beds are available tonight. Please contact the Statement Processor Solutions Analyst ([phone]) and [facility] Sales Operations Associate ([phone]) for any needed changes in the Safety Plan. Safety plan has been provided to interdepartmental care team including Clinical Coordinator, Nursing Family Support Worker
[2019-12-10] MEDS: LORazepam 1 MG TAB 2 MG PO (22:39)
--- NOTE | 2019-12-11 09:16 | CMPROGNOTE_ITS ---
Care Management Progress Note Jacquelin has been more receptive to placement today, as she is unhappy about being held here. Per ANAMIKA Esquivel, [facility] has an open bed and they are considering her for admission today. CM sent updated clinicals, labs, medication lists, and nursing shift assessments, as requested by [facility]. CM huddled with the following participants: ANAMIKA Esquivel; Beth, RN College Or University Faculty Member; Katerine, RN Coordinator; KIM Duke. CM updated Primary RN also. No changes to the safety plan today. Safety plan has been established with the care team, to adhere to patient goals, identify restrictions based on behavioral status, address nutrition, and determine allowed personal belongings, tools for hygiene and personal care. Determine level of activity including ambulation, level of supervision, visitors, and determine privileges based on behaviors and level of engagement by patient; please note safety plan below. Jacquelin was still not able to participate in developing the plan and is not able to articulate agreement. Patient is currently involuntarily at [facility] and in need of inpatient psychiatric admission when a bed becomes available. [facility] QMHP/Frontline Chief Digital Media Officer will seek placement. No beds are available tonight. Please contact the Sketcher Siding Stapler ([phone]) and [facility] Chief Digital Media Officer ([phone]) for any needed changes in the Safety Plan. Safety plan has been provided to interdepartmental care team including Clinical Coordinator, Nursing College Or University Faculty Member - MH Services (Omit if N/A) Current MH Services: Psychiatric Inp (Involuntary Placement)
--- NOTE | 2019-12-11 09:18 | PDOC.CMSAFE ---
Care Management Safety Plan SAFETY PLAN: M/S Transition Bed #235 12/11/2019 1. Will remain In Paper Clothes and on Suicide precautions. Will be given own underwear, once laundered. 2. Will remain in room under direct supervision of one-on-one staff at all times provided by CPSO; ERIC, SHAKER PLATE OPERATOR director medical science. 3. May have paper cups, plates, finger foods, safety spoon. Food tray is not to be left in the room with patient at any time. 4. Follow [facility] Management of the Admitted Behavioral Health Patient policy. 5. Comfort bath system and may shower with staff supervision at the discretion of nursing. 6. No cell phone at this time, personal belongings limited to glasses per RN discretion at this time. 7. No visitors at this time. 9. Bathroom privileges available in room without limitation. 10. Will remain in the M/S Transition Bed until appropriate inpatient psychiatric bed is available for admission, treatment and stabilization. 11. Limit conversations at this time; serves as a trigger point leading to escalation of behaviors. Low stimulation environment recommended. 12. TV and remote available at RN discretion. Jacquelin may listen to music, provided by a device held and controlled by CPSO at all times, at the discretion of staff. 13. Book, Paper and crayons for activity at RN discretion 14. Due to INVOLUNTARY status, the patient must remain in the hospital. Second Certification completed by Dr. Machuca and she will remain on Involuntary Status. Patient is currently involuntarily at [facility] and in need of inpatient psychiatric admission when a bed becomes available. [facility] QMHP/Frontline Branch Or Department Chief Librarian will seek placement. No beds are available tonight. Please contact the Undercollar Maker Facility Attendant ([phone]) and [facility] Branch Or Department Chief Librarian ([phone]) for any needed changes in the Safety Plan. Safety plan has been provided to interdepartmental care team including Clinical Coordinator, Nursing Food Technician
[2019-12-11] MEDS: Levothyroxine 125 MCG TAB PO (09:35)
[2019-12-11] MEDS: Oseltamivir 75 MG CAP PO (09:35)
[2019-12-11] MEDS: Nicotine 4 MG LOZG SUC ×4 (09:42→22:13)
--- NOTE | 2019-12-11 10:22 | PDOC.MHCN_ITS ---
Date of service: 12/11/19 Time of Service: 10:23 Mental Health Crisis Note Presenting Issue How did you arrive at the ED and why did you come: Patient was brought to the ED via [facility] for an Emergency screening. Precipitating Factors Client left [facility] Care Bed AMA, she was psychotic and delusional. She was placed on involuntary status and is awaiting placement at [facility]. Disposition BEHAVIOR: Patient refused to speak with this clinician today, refused to answer questions and continued with a delusional discourse and demanded to go home. EYE CONTACT: Patient avoided eye contact during assessment today. MOOD: Angry and withdrawn. AFFECT: Patient was confrontational. APPETITE: Unknown. SLEEP(trouble falling/staying asleep: Patient was attempting to sleep at 10 am. lying on a mat on the floor. Plan [facility] has agreed to accept the client on Saturday12/13/19.
--- NOTE | 2019-12-11 14:03 | W.NUTRFU ---
Date of service: 12/11/19 Time of Service: 14:03 Nutritional Follow up NOTE: Jacquelin continues to meet her nutrient and fluid needs by mouth, weight remains stable. Not at nutritional risk. Time Spent in Nutritional Counseling and Treatment: 0 time spent face to face
--- NOTE | 2019-12-11 14:24 | PDOC.CMPRO ---
- If Service Date Differs Date of service: 12/11/19 Time of Service: 14:24 Care Management Progress Note Huddle included Martha Rowell RN primary, Jessica Grant RN Calibrator Barometers, Alvin Wright [facility] SWITCH REPAIRER point, Melida Hooper RN CM SAFETY PLAN: M/S Transition Bed #235 12/11/2019 1. Will remain In Paper Clothes and on Suicide precautions. Will be given own underwear, once laundered. 2. Will remain in room under direct supervision of one-on-one staff at all times provided by CPSO; ERIC, QUIQUE general counselor. 3. May have paper cups, plates, finger foods, safety spoon. Food tray is not to be left in the room with patient at any time. 4. Follow [facility] Management of the Admitted Behavioral Health Patient policy. 5. Comfort bath system and may shower with staff supervision at the discretion of nursing. 6. No cell phone at this time, personal belongings limited to glasses per RN discretion at this time. Jacquelin may contact Jose Manuel López at legal [phone] 7. No visitors at this time. 9. Bathroom privileges available in room without limitation. 10. Will remain in the M/S Transition Bed until appropriate inpatient psychiatric bed is available for admission, treatment and stabilization. 11. Limit conversations at this time; serves as a trigger point leading to escalation of behaviors. Low stimulation environment recommended. 12. TV and remote available at RN discretion. Jacquelin may listen to music, provided by a device held and controlled by CPSO at all times, at the discretion of staff. 13. Book, Paper and crayons for activity at RN discretion 14. Due to INVOLUNTARY status, the patient must remain in the hospital. Second Certification completed by Dr. Machuca and she will remain on Involuntary Status. Patient has been tentatively accepted at [facility]. The hospital request updated notes to be faxed Saturday morning to [phone]. [facility] will arrange transportation once the patient has been accepted. Orly Powell ([place]) is on this weekend and will be the point person [phone] Patient is currently involuntarily at [facility] and in need of inpatient psychiatric admission when a bed becomes available. [facility] QMHP/Frontline Data Report Analyst will seek placement. No beds are available tonight. Please contact the Molding Utility Worker Special Education Educational Assistant ([phone]) and [facility] Data Report Analyst ([phone]) for any needed changes in the Safety Plan. Safety plan has been provided to interdepartmental care team including Clinical Coordinator, Nursing Calibrator Barometers
--- NOTE | 2019-12-11 14:34 | CMPROGNOTE_ITS ---
- If Service Date Differs Date of service: 12/11/19 Time of Service: 14:34 Care Management Progress Note Jacquelin is agitated today, she did however take her medications per nursing Per ANAMIKA Esquivel, [facility] has an open bed and they are considering her for admission on Saturday. [facility] is requesting clinicals be faxed Saturday morning. Plan will be for discharge on Saturday pending bed availability. Safety plan has been established with the care team, to adhere to patient goals, identify restrictions based on behavioral status, address nutrition, and determine allowed personal belongings, tools for hygiene and personal care. Determine level of activity including ambulation, level of supervision, visitors, and determine privileges based on behaviors and level of engagement by patient; please note safety plan below. Jacquelin was still not able to participate in developing the plan and is not able to articulate agreement. Huddle completed with RN real estate sales supervisor, Primary nurse, [facility], and Care Management team 12/11/2019 at 1100 Patient is currently involuntarily at [facility] and in need of inpatient psychiatric admission when a bed becomes available. [facility] QMHP/Frontline Nursing Tech will seek placement. No beds are available today. Please contact the Gear Setter Bloom Conveyor Operator ([phone]) and [facility] Nursing Tech ([phone]) for any needed changes in the Safety Plan. Safety plan has been provided to interdepartmental care team including Clinical Coordinator, Nursing Shift Coordinator -
--- NOTE | 2019-12-11 15:28 | PGE_ITS ---
Date of Service Date of service: 12/11/19 Time of Service: 15:28 Assessment and Plan Assessment and plan (1) Exposure to influenza: Status: Acute Assessment and plan: Patient was reporting a cough and labs and chest x- ray unremarkable lung exam shows clear bilaterally with no wheezing or coarse breath sounds, she has been afebrile and hemodynamically stable. She has had no further complaints. She continues to receive Tamiflu prophylaxis and will continue to complete a 14-day course (2) Acute psychosis: Status: Acute Assessment and plan: continues to remain psychotic. continue to encourage psychiatric medications. mental health following, is awaiting inpatient psychiatric bed which will be available on December 13 at the [facility]. case management following. (3) Schizophrenia: Status: Chronic Assessment and plan: Still refusing medications, continue to encourage psychatric medications (4) Hypothyroidism: Status: Chronic Assessment and plan: TSH on december 06 was 3.02, Continue current dose of Synthroid (5) DVT prophylaxis: Status: Acute Assessment and plan: not required in an ambulatory patient <40 years old. (6) Discharge planning issues: Status: Acute Assessment and plan: Full code Under EE Until psychiatric placement can be secured. Subjective Subjective Patient reports: no new complaints Exam Narrative Exam Narrative: General: cooperative, healthy appearing, comfortable and no acute distress Nutritional Appearance: overweight Orientation: alert, awake, oriented to person and oriented to place (and situation) [facility] Head: normal to inspection, normocephalic and atraumatic 1. split lip, no bleeding Mouth: oral mucosae normal and moist mucous membranes abnormal Resp Effort & Inspection: normal respiratory effort and cough Auscultation: clear to auscultation bilaterally Cardio Rate: regular rate Rhythm: regular rhythm GI Inspection: normal to inspection and obesity Palpation: soft Auscultation: normal bowel sounds Skin General skin exam: no rashes or lesions noted Neuro General: alert, awake and oriented x3 Extrem General: normal to inspection, full ROM and no pedal edema Psych Appearance: grossly normal Mental Status: mental status grossly normal Speech and Movement: speech and movement normal Mood: irritable mood Affect: irritable affect Attitude: cooperative Thought Process: illogical Thought Content: delusions Insight: poor Judgment: poor Objective Objective Clinical Data: Vital Signs Temperature 36.9 C 12/10/19 08:19 Temperature Source Tympanic 02/20/20 08:19 Pulse 129 H 12/10/19 08:19 Pulse Rhythm Regular 12/10/19 07:45 Respiratory Rate 18 12/10/19 08:19 Respiratory Effort Non-Labored 12/10/19 23:20 Respiratory Depth Normal 12/10/19 23:20 Respiratory Pattern Normal 12/10/19 07:45 Blood Pressure 120/89 12/10/19 08:19 Blood Pressure Position Supine 12/05/19 00:53 Pulse Oximetry 98 12/10/19 08:19 Oxygen Delivery Method Room Air 12/10/19 08:19 Oxygen Flow Rate 0 12/10/19 08:19 Pain Level 0 12/10/19 08:19 Comment 12/09/19 15:43 Intake & Output 12/10/19 12/11/19 12/11/19 23:59 11:59 23:59 Intake Total 480 / 480 Balance 480 / 480 Intake: Oral 480 / 480 Other: Comment voids independently. Voiding Methods Toilet Laboratory Results WBC 5.74 k/cumm (4.4-10.8) 12/09/19 15:26 RBC 4.67 m/cumm (4.00-5.20) 12/09/19 15:26 Hgb 14.0 g/dL (12.0-15.5) 12/09/19 15:26 Hct 41.3 % (36.0-46.0) 12/09/19 15:26 MCV 88.4 fL (80-95) 12/09/19 15:26 MCH 30.0 pg (27.0-33.0) 12/09/19 15: MCHC 33.9 g/dL (32.0-36.0) 12/09/19 15:26 RDW 13.3 % (11.7-14.6) 12/09/19 15:26 Plt Count 236 x1000/uL (130-400) 12/09/19 15:26 MPV 9.8 fL (8.0-11.0) 12/09/19 15:26 Immature Gran % 0.0 % 12/09/19 15:26 Neutrophils % 60.4 12/09/19 15:26 Lymphocytes % 27.4 12/09/19 15:26 Monocytes % 8.2 12/09/19 15:26 Eosinophils % 3.0 12/09/19 15:26 Basophils % 1.0 12/09/19 15:26 Absolute Neutrophils 3.47 k/cumm (1.2-6.7) 12/09/19 15:26 Absolute Lymphocytes 1.57 k/cumm (1.2-3.4) 12/09/19 15:26 Absolute Monocytes 0.47 k/cumm (0.11-0.7) 12/09/19 15:26 Absolute Eosinophils 0.17 k/cumm (0.0-0.7) 12/09/19 15:26 Absolute Basophils 0.06 k/cumm (0.0-0.2) 12/09/19 15:26 PT 10.2 sec (9.3-11.0) 12/05/19 01:08 INR 1.0 (0.9-1.1) 12/05/19 01:08 APTT 24.3 sec (21.0-31.4) 12/05/19 01:08 Sodium 142 mmol/L (136-145) 12/09/19 15:26 Potassium 4.1 mmol/L (3.5-5.1) 12/09/19 15:26 Chloride 106 mmol/L (98-107) 12/09/19 15:26 Carbon Dioxide 27.0 mmol/L (21.0-32.0) 12/09/19 15:26 Anion Gap 9.0 mmol/L (3-11) 12/09/19 15:26 BUN 9 mg/dL (7-18) 12/09/19 15:26 Creatinine 0.77 mg/dL (0.55-1.02) 12/09/19 15:26 Estimated GFR/1.73 m2 >= 60.00 (mL/min/1.73m2) 12/09/19 15:26 Glucose 93 mg/dL (74-106) 12/09/19 15:26 Calcium 8.6 mg/dL (8.5-10.1) 12/09/19 15:26 Total Bilirubin 0.2 mg/dL (0.2-1.0) 12/09/19 15:26 AST 34 U/L (15-37) 12/09/19 15:26 ALT 38 U/L (14-59) 12/09/19 15:26 Alkaline Phosphatase 53 U/L (46-116) 12/09/19 15:26 Total Protein 6.9 g/dL (6.4-8.2) 12/09/19 15:26 Albumin 3.5 g/dL (3.4-5.0) 12/09/19 15:26 TSH 3.02 uIU/mL (0.36-3.74) 12/05/19 01:08 Thyroxine (T4) 14.7 ug/mL (4.7-13.3) H 12/05/19 01:08 Urine Color Yellow (Yellow) 12/05/19 01:55 Urine Clarity Sl cloudy (Clear) 12/05/19 01:55 Urine pH 7.0 (5-8) 12/05/19 01:55 Ur Specific [place] 1.020 (1.005-1.025) 12/05/19 01:55 Urine Protein Negative mg/dL (Negative) 12/05/19 01:55 Urine Ketones Trace mg/dL (Negative) H 12/05/19 01:55 Urine Blood Negative (Negative) 12/05/19 01:55 Urine Nitrite Negative (Negative) 12/05/19 01:55 Urine Bilirubin Negative (Negative) 12/05/19 01:55 Urine Urobilinogen 0.2 EU/dL (Up TO 0.2) 12/05/19 01:55 Ur Leukocyte Esterase Trace (Negative) H 12/05/19 01:55 Urine RBC Negative HPF (0-2) 12/05/19 01:55 Urine WBC 3-5 HPF (0-5) 12/05/19 01:55 Ur Epithelial Cells Few HPF (Negative) 12/05/19 01:55 Urine Crystals Negative HPF (Negative) 12/05/19 01:55 Urine Bacteria Moderate HPF (Negative) 12/05/19 01:55 Urine Casts Negative LPF (Negative) 12/05/19 01:55 Urine Mucus Negative (Negative) 12/05/19 01:55 Ur Culture Indicated? Yes 12/05/19 01:55 Urine Glucose Negative mg/dL (Negative) 12/05/19 01:55 Salicylates 3.6 mg/dL (2.8-20.0) 12/05/19 01:08 Acetaminophen < 2 ug/mL (10-30) 12/05/19 01:08 Ethyl Alcohol 3.8 mg/dL (<3) 12/05/19 01:08
[2019-12-11 16:12] VITALS: BP 113/83; PULSE 102; RESP 16; TEMP 36.5; O2SAT 97
[2019-12-12] MEDS: Nicotine 4 MG LOZG SUC ×7 (01:14→21:05)
[2019-12-12] MEDS: Levothyroxine 125 MCG TAB PO (05:06)
[2019-12-12] MEDS: Oseltamivir 75 MG CAP PO (10:34)
--- NOTE | 2019-12-12 10:39 | PDOC.MHCN_ITS ---
Date of service: 12/12/19 Time of Service: 10:39 Mental Health Crisis Note Presenting Issue How did you arrive at the ED and why did you come: Client arrived at [facility]'s ED via police escort, on December 04, 2019. Client was at the [place] [facility] but, due to unwanted behaviors client was asked to leave and not return. It was -20 degrees outside and client walked to the adjacent parking lot and started screaming for Help. Concerned citizens at [facility] and the [place] [facility] heard the client and called the 911 to assist Client was screened in the Emergency department by mental health and met the criteria for the first and second certification for involuntary status. Client is currently awaiting a involuntary bed. This principal technical writer arrived to administer the daily mental health screening from [employer], as client is in the [employer] program at [facility]. Precipitating Factors Client was unwilling to engage with this screener. Disposition BEHAVIOR: Standoffish EYE CONTACT: No eye contact MOOD: Agitated AFFECT: Annoyed APPETITE: Eating breakfast SLEEP(trouble falling/staying asleep: Declined to answer Plan Client will remain on involuntary status. This screener contacted admissions at [facility] and spoke with Rufino. Rufino communicated that there is going to be a discharge tomorrow and when their claims supervisor gives the 'all clear' on the room, they will call to arrange transport. Rufino said it would be early evening tomorrow 12/13/2019. Signature Clinician's Name/Title: Lizette Burris BA ([place]) [facility] Apprentice Jockey [facility]
--- NOTE | 2019-12-12 10:39 | PDOC.MHCN ---
Date of service: 12/12/19 Time of Service: 10:39 Mental Health Crisis Note Presenting Issue How did you arrive at the ED and why did you come: Client arrived at [facility]'s ED via police escort, on December 04, 2019. Client was at the [facility] but, due to unwanted behaviors client was asked to leave and not return. It was -20 degrees outside and client walked to the adjacent parking lot and started screaming for Help. Concerned citizens at [facility] and the [place] [facility] heard the client and called the 911 to assist Client was screened in the Emergency department by mental health and met the criteria for the first and second certification for involuntary status. Client is currently awaiting a involuntary bed. This mortgage or loan underwriter arrived to administer the daily mental health screening from [employer], as client is in the [employer]PER[employer] program at [facility]. Precipitating Factors Client was unwilling to engage with this screener. Disposition BEHAVIOR: Standoffish EYE CONTACT: No eye contact MOOD: Agitated AFFECT: Annoyed APPETITE: Eating breakfast SLEEP(trouble falling/staying asleep: Declined to answer Plan Client will remain on involuntary status. This screener contacted admissions at [facility] and spoke with Rufino. Rufino communicated that there is going to be a discharge tomorrow and when their instrument maintenance supervisor gives the 'all clear' on the room, they will call to arrange transport. Rufino said it would be early evening tomorrow 12/13/2019. Signature Clinician's Name/Title: Lizette Burris BA ([place]) [facility] Utility Locator [facility]
--- NOTE | 2019-12-12 13:07 | PGE_ITS ---
Date of Service Date of service: 12/12/19 Time of Service: 13:07 Assessment and Plan Assessment and plan (1) Exposure to influenza: Start date: 12/12/19 Start time: 13:08 Status: Acute Assessment and plan: Patient was reporting a cough and labs and chest x- ray unremarkable lung exam shows clear bilaterally with no wheezing or coarse breath sounds, she has been afebrile and hemodynamically stable. She has had no further complaints. She continues to receive Tamiflu prophylaxis and will c ontinue to complete a 14-day course (2) Acute psychosis: Start date: 12/12/19 Start time: 13:08 Status: Acute Assessment and plan: continues to remain psychotic. continue to encourage psychiatric medications. mental health following, is awaiting inpatient psychiatric bed which will be available on December 13 at the [facility]. case management following. (3) Schizophrenia: Start date: 12/12/19 Start time: 13:08 Status: Chronic Assessment and plan: Still refusing medications, continue to encourage psychatric medications (4) DVT prophylaxis: Start date: 12/12/19 Start time: 13:09 Status: Acute Assessment and plan: not required in an ambulatory patient <40 years old. (5) Discharge planning issues: Start date: 12/12/19 Start time: 13:09 Status: Acute Assessment and plan: Full code Under EE Until psychiatric placement can be secured. Subjective Subjective Patient reports: no new complaints Interval history since last seen: Jacquelin continues to report voices and see invisible people, she wants to punch the invisible people in the face. She also states she wants to punch healthcare workers in the face but she won't because she knows it is illegal. She occasionally yells at the voices. She denies being suicidal or homicidal. She wants to sleep, she did not sleep overnight. Her speech is extremely disorganized, nonsensical, tangential. She has a safety plan in place with a 1:1 patient observer. She did mention to nursing she was in need of a doctor for her vagina because it was bleeding. When asked directly she denies having vaginal bleeding and she is currently not on her period. Exam Narrative Exam Narrative: General: cooperative, healthy appearing, comfortable and no acute distress Nutritional Appearance: overweight Orientation: alert, awake, oriented to person and oriented to place (and situation) [facility] Head: normal to inspection, normocephalic and atraumatic 1. split lip, no bleeding Mouth: oral mucosae normal and moist mucous membranes abnormal Resp Effort & Inspection: normal respiratory effort and cough Auscultation: clear to auscultation bilaterally Cardio Rate: regular rate Rhythm: regular rhythm GI Inspection: normal to inspection and obesity Palpation: soft Auscultation: normal bowel sounds Skin General skin exam: no rashes or lesions noted Neuro General: alert, awake and oriented x3 Extrem General: normal to inspection, full ROM and no pedal edema Psych Appearance: grossly normal Mental Status: mental status grossly normal Speech and Movement: speech and movement normal Mood: irritable mood Affect: irritable affect Attitude: cooperative Thought Process: illogical Thought Content: delusions Insight: poor Judgment: poor Const General: cooperative, healthy appearing, comfortable and no acute distress Nutritional Appearance: overweight Orientation: alert, awake, oriented to person and oriented to place (and situation) [facility] Head: normal to inspection, normocephalic and atraumatic Mouth: oral mucosae normal and moist mucous membranes abnormal Resp Effort & Inspection: normal respiratory effort and cough Auscultation: clear to auscultation bilaterally Cardio Rate: regular rate Rhythm: regular rhythm GI Inspection: normal to inspection and obesity Palpation: soft Auscultation: normal bowel sounds Skin General skin exam: no rashes or lesions noted Neuro General: alert, awake and oriented x3 Extrem General: normal to inspection, full ROM and no pedal edema Psych Appearance: grossly normal Mental Status: mental status grossly normal Speech and Movement: speech and movement normal Mood: irritable mood Affect: irritable affect Attitude: cooperative Thought Process: perseverating Thought Content: delusions and ideas of reference (spiritism, prisoner of war) Insight: poor Judgment: poor Objective Objective Clinical Data: Vital Signs Temperature 36.5 C 12/11/19 16:12 Temperature Source Tympanic 12/11/19 16:12 Pulse 102 H 12/11/19 16:12 Pulse Rhythm Regular 12/11/19 16:10 Respiratory Rate 16 12/11/19 16:12 Respiratory Effort Non-Labored 12/12/19 00:07 Respiratory Depth Normal 12/12/19 00:07 Respiratory Pattern Normal 12/12/19 00:07 Blood Pressure 113/83 12/11/19 16:12 Blood Pressure Position Supine 12/05/19 00:53 Pulse Oximetry 97 12/11/19 16:12 Oxygen Delivery Method Room Air 12/11/19 16:12 Oxygen Flow Rate 0 12/11/19 16:12 Pain Level 0 12/11/19 16:12 Comment 12/09/19 15:43 Intake & Output 12/11/19 12/12/19 12/12/19 23:59 11:59 23:59 Intake Total 620 / 620 780 / 780 Balance 620 / 620 780 / 780 Intake: Oral 620 / 620 780 / 780 Other: Comment Per pt rate pt voiding independently in the bathroom Voiding Methods Toilet Toilet Laboratory Results WBC 5.74 k/cumm (4.4-10.8) 12/09/19 15: RBC 4.67 m/cumm (4.00-5.20) 12/09/19 15: Hgb 14.0 g/dL (12.0-15.5) 12/09/19 15: Hct 41.3 % (36.0-46.0) 12/09/19 15: MCV 88.4 fL (80-95) 12/09/19 15: MCH 30.0 pg (27.0-33.0) 12/09/19 15: MCHC 33.9 g/dL (32.0-36.0) 12/09/19 15: RDW 13.3 % (11.7-14.6) 12/09/19 15: Plt Count 236 x1000/uL (130-400) 12/09/19 15: MPV 9.8 fL (8.0-11.0) 12/09/19 15: Immature Gran % 0.0 % 12/09/19 15: Neutrophils % 60.4 12/09/19 15: Lymphocytes % 27.4 12/09/19 15: Monocytes % 8.2 12/09/19 15: Eosinophils % 3.0 12/09/19 15: Basophils % 1.0 12/09/19 15: Absolute Neutrophils 3.47 k/cumm (1.2-6.7) 12/09/19 15: Absolute Lymphocytes 1.57 k/cumm (1.2-3.4) 12/09/19 15: Absolute Monocytes 0.47 k/cumm (0.11-0.7) 12/09/19 15:26 Absolute Eosinophils 0.17 k/cumm (0.0-0.7) 12/09/19 15:26 Absolute Basophils 0.06 k/cumm (0.0-0.2) 12/09/19 15:26 PT 10.2 sec (9.3-11.0) 12/05/19 01:08 INR 1.0 (0.9-1.1) 12/05/19 01:08 APTT 24.3 sec (21.0-31.4) 12/05/19 01:08 Sodium 142 mmol/L (136-145) 12/09/19 15:26 Potassium 4.1 mmol/L (3.5-5.1) 12/09/19 15:26 Chloride 106 mmol/L (98-107) 12/09/19 15:26 Carbon Dioxide 27.0 mmol/L (21.0-32.0) 12/09/19 15:26 Anion Gap 9.0 mmol/L (3-11) 12/09/19 15:26 BUN 9 mg/dL (7-18) 12/09/19 15:26 Creatinine 0.77 mg/dL (0.55-1.02) 12/09/19 15:26 Estimated GFR/1.73 m2 >= 60.00 (mL/min/1.73m2) 12/09/19 15:26 Glucose 93 mg/dL (74-106) 12/09/19 15:26 Calcium 8.6 mg/dL (8.5-10.1) 12/09/19 15:26 Total Bilirubin 0.2 mg/dL (0.2-1.0) 12/09/19 15:26 AST 34 U/L (15-37) 12/09/19 15:26 ALT 38 U/L (14-59) 12/09/19 15:26 Alkaline Phosphatase 53 U/L (46-116) 12/09/19 15:26 Total Protein 6.9 g/dL (6.4-8.2) 12/09/19 15:26 Albumin 3.5 g/dL (3.4-5.0) 12/09/19 15:26 TSH 3.02 uIU/mL (0.36-3.74) 12/05/19 01:08 Thyroxine (T4) 14.7 ug/mL (4.7-13.3) H 12/05/19 01:08 Urine Color Yellow (Yellow) 12/05/19 01:55 Urine Clarity Sl cloudy (Clear) 12/05/19 01:55 Urine pH 7.0 (5-8) 12/05/19 01:55 Ur Specific [place] 1.020 (1.005-1.025) 12/05/19 01:55 Urine Protein Negative mg/dL (Negative) 12/05/19 01:55 Urine Ketones Trace mg/dL (Negative) H 12/05/19 01:55 Urine Blood Negative (Negative) 12/05/19 01:55 Urine Nitrite Negative (Negative) 12/05/19 01:55 Urine Bilirubin Negative (Negative) 12/05/19 01:55 Urine Urobilinogen 0.2 EU/dL (Up TO 0.2) 12/05/19 01:55 Ur Leukocyte Esterase Trace (Negative) H 12/05/19 01:55 Urine RBC Negative HPF (0-2) 12/05/19 01:55 Urine WBC 3-5 HPF (0-5) 12/05/19 01:55 Ur Epithelial Cells Few HPF (Negative) 12/05/19 01:55 Urine Crystals Negative HPF (Negative) 12/05/19 01:55 Urine Bacteria Moderate HPF (Negative) 12/05/19 01:55 Urine Casts Negative LPF (Negative) 12/05/19 01:55 Urine Mucus Negative (Negative) 12/05/19 01:55 Ur Culture Indicated? Yes 12/05/19 01:55 Urine Glucose Negative mg/dL (Negative) 12/05/19 01:55 Salicylates 3.6 mg/dL (2.8-20.0) 12/05/19 01:08 Acetaminophen < 2 ug/mL (10-30) 12/05/19 01:08 Ethyl Alcohol 3.8 mg/dL (<3) 12/05/19 01:08
[2019-12-12 13:45] VITALS: BP 115/77; PULSE 111; RESP 16; TEMP 36.8; O2SAT 100
--- NOTE | 2019-12-12 16:44 | CMPROGNOTE_ITS ---
- If Service Date Differs Date of service: 12/12/19 Time of Service: 16:44 Care Management Progress Note Michelle has been cooperative and calm for most of the day. She has been coloring and appropriate with staff. When KIM met with her she did question [facility]'s right to hold me against my will beyond the time you are legally allowed to. She also asked staff to allow her to call her compliance attorney. Mental Health [facility] was contacted and advised to offer Michelle a copy of [place] Notice of Your Rights under the custody of . offered Michelle a copy of the document but she refused to accept it and also refused CM's offer to facilitate a call to her compliance attorney (Jose Manuel López from [employer]). Michelle also requested to call her father and this request was denied. Safety plan has been established with the care team, to adhere to patient goals, identify restrictions based on behavioral status, address nutrition, and determine allowed personal belongings, tools for hygiene and personal care. Determine level of activity including ambulation, level of supervision, visitors, and determine privileges based on behaviors and level of engagement by patient; please note safety plan below. Jacquelin was still not able to participate in developing the plan and is not able to articulate agreement. A huddle was held with: AGUILAR Chicas, Jessica, Nursing mill supervisor, ALEJANDRO Garcias and KIM Singleton. The safety plan was reviewed but no changes were made at this time. SAFETY PLAN: M/S Transition Bed #235 12/12/2019 1. Will remain In Paper Clothes and on Suicide precautions. Will be given own underwear, once laundered. 2. Will remain in room under direct supervision of one-on-one staff at all times provided by [employer]; ERIC, HEALTH FACILITIES SURVEYOR street vendor. 3. May have paper cups, plates, finger foods, safety spoon. Food tray is not to be left in the room with patient at any time. 4. Follow [facility] Management of the Admitted Behavioral Health Patient policy. 5. Comfort bath system and may shower with staff supervision at the discretion of nursing. 6. No cell phone at this time, personal belongings limited to glasses per RN discretion at this time. Jacquelin may contact Jose Manuel López at legal [phone] 7. No visitors at this time. 9. Bathroom privileges available in room without limitation. 10. Will remain in the M/S Transition Bed until appropriate inpatient psychiatric bed is available for admission, treatment and stabilization. 11. Limit conversations at this time; serves as a trigger point leading to escalation of behaviors. Low stimulation environment recommended. 12. TV and remote available at RN discretion. Jacquelin may listen to music, provided by a device held and controlled by [employer] at all times, at the discretion of staff. 13. Book, Paper and crayons for activity at RN discretion 14. Due to INVOLUNTARY status, the patient must remain in the hospital. Second Certification completed by Dr. Machuca and she will remain on Involuntary Status. Patient has been tentatively accepted at [facility]. The hospital request updated notes to be faxed Saturday to [phone]. [facility] will arrange transportation once the patient has been accepted. Orly Powell ([place]) is on this weekend and will be the point person [phone] Patient is currently involuntarily at [facility] and in need of inpatient psychiatric admission when a bed becomes available. [facility]
--- NOTE | 2019-12-12 17:24 | PDOC.CMSAFE ---
- If Service Date Differs Date of service: 12/12/19 Time of Service: 17:24 Care Management Safety Plan A huddle was held with: AGUILAR Chicas, Jessica, Nursing timekeeping supervisor, ALEJANDRO Garcias and KIM Singleton. The safety plan was reviewed but no changes were made at this time. SAFETY PLAN: M/S Transition Bed #235 12/12/2019 1. Will remain In Paper Clothes and on Suicide precautions. Will be given own underwear, once laundered. 2. Will remain in room under direct supervision of one-on-one staff at all times provided by [employer]; ERIC, QUIQUE supervisor travel information center. 3. May have paper cups, plates, finger foods, safety spoon. Food tray is not to be left in the room with patient at any time. 4. Follow [facility] Management of the Admitted Behavioral Health Patient policy. 5. Comfort bath system and may shower with staff supervision at the discretion of nursing. 6. No cell phone at this time, personal belongings limited to glasses per RN discretion at this time. Jacquelin may contact Jose Manuel Maribel at legal [phone] 7. No visitors at this time. 9. Bathroom privileges available in room without limitation. 10. Will remain in the M/S Transition Bed until appropriate inpatient psychiatric bed is available for admission, treatment and stabilization. 11. Limit conversations at this time; serves as a trigger point leading to escalation of behaviors. Low stimulation environment recommended. 12. TV and remote available at RN discretion. Jacquelin may listen to music, provided by a device held and controlled by [employer] at all times, at the discretion of staff. 13. Book, Paper and crayons for activity at RN discretion 14. Due to INVOLUNTARY status, the patient must remain in the hospital. Second Certification completed by Dr. Machuca and she will remain on Involuntary Status. Patient has been tentatively accepted at [facility]. The hospital request updated notes to be faxed Saturday morning to [phone]. [facility] will arrange transportation once the patient has been accepted. Orly SeaaChanel Powell is on this weekend and will be the point person [phone] Patient is currently involuntarily at [facility] and in need of inpatient psychiatric admission when a bed becomes available. [facility] cc:
--- NOTE | 2019-12-13 10:42 | PDOC.MHCN_ITS ---
Date of service: 12/13/19 Time of Service: 10:42 Mental Health Crisis Note Presenting Issue How did you arrive at the ED and why did you come: Client arrived at [facility]'s ED via police escort, on December 04, 2019. Client was at the [facility] but, due to unwanted behaviors client was asked to leave and not return. It was -20 degrees outside and client walked to the adjacent parking lot and started screaming for Help. Concerned citizens at [facility] and the [facility] heard the client and called the 911 to assist Client was screened in the Emergency department by mental health and met the criteria for the first and second certification for involuntary status. Client is currently awaiting a involuntary bed. This engineering technical writer arrived to administer the daily mental health screening from [employer], as client is in the [facility] [employer] program at [facility]. Precipitating Factors Client was eating when this screener entered the unit. When asked how they were doing the client replied, 'fine.' When asked how she slept she replied,'Eh.' Then the client said she wanted to go home, she wanted to call her father, and that she wanted this screener to 'go away'. This screener let her know she cannot call her father. Disposition BEHAVIOR: Indifferent, rude. EYE CONTACT: Minimal eye contact MOOD: Agitated, annoyed AFFECT: Annoyed APPETITE: Client was eating during assessment. SLEEP(trouble falling/staying asleep: Client did not provide a definitive answer. Plan Client will remain on involuntary status. [facility] to admit today. This clinician completed the transportation checklist. The original checklist will accompany the client to [facility] along with the original paperwork. A copy will be faxed to [facility] and [facility]. [facility] has arranged film and video graphics designer for transport at 13:00. Signature Clinician's Name/Title: Lizette Burris BA ([place]) [facility] Hand Paster [facility]
[2019-12-13] MEDS: Nicotine 4 MG LOZG SUC ×2 (11:00→12:45)
[2019-12-13] MEDS: Oseltamivir 75 MG CAP PO (11:11)
[2019-12-13] MEDS: Levothyroxine 125 MCG TAB PO (11:11)
[2019-12-13 11:15] VITALS: BP 108/73; PULSE 89; RESP 18; TEMP 36.6; O2SAT 99
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
--- NOTE | 2019-12-13 17:17 | PDOC.CMDIS ---
- If Service Date Differs Date of service: 12/13/19 Time of Service: 17:17 LACE Index Scoring Tool - Questions: Length of Stay (in days): 7 - 13 Acuity (Admit via E.D.?): Yes E.D. Visits: 5 - Answers: Total Score: 12 Risk of Readmission: High Risk Care Management Discharge Reason for Hospitalization: Agitation and delusions Discharge Plan: Michelle is being transferred to [facility] in [place], [place] Patient/Family Education Needs: Discharge plan, limitations, expectations. - MH Services (Omit if N/A) Current MH Services: Psychiatric Inp Referred to Internal [facility] (ED embedded) family preservation caseworker?: No
== END 2019-12-13 13:33 | disposition other institution (70) | DRG 885 ==
LOC: ER 04:13 → MS 05:29
PROVIDERS: Nurse Practitioner Acute Care; Admitting Provider General Practice; Emergency Provider Emergency Medicine; PCP Family Medicine; Visit Provider Internal Medicine
DX: F20.9 Schizophrenia, unspecified (principal); F23 Brief psychotic disorder; Z20.828 Contact with and (suspected) exposure to other viral communicable diseases; R05 Cough; E03.9 Hypothyroidism, unspecified; F17.210 Nicotine dependence, cigarettes, uncomplicated; T43.596A Underdosing of other antipsychotics and neuroleptics, initial encounter; T42.4X6A Underdosing of benzodiazepines, initial encounter; Z75.1 Person awaiting admission to adequate facility elsewhere
CPT/HCPCS: 36415; 80053; 81025; 87449; 99222; 99232; 99233; 99239; 99285; NC; 71045; 80320; 80329; 81003; 81015; 84436; 84443; 85025; 85610; 85730; 87086; 99221; 99284

== ENCOUNTER 2022-03-14 18:21 | Outpatient (REF) | payer MEDICARE, MEDICAID, SELFPAY ==
[2022-03-14 20:16] LABS: ALT 22 U/L (14-59); AST 18 U/L (15-37); Alkaline Phosphatase 57 U/L (46-116); Anion Gap 9.9 mmol/L (3-11); BUN 6 mg/dL (7-18); Bilirubin, Total 0.3 mg/dL (0.2-1.0); CO2 26.1 mmol/L (21.0-32.0); CREATININE 0.9 mg/dL (0.55-1.02); Calcium 9.4 mg/dL (8.5-10.1); Chloride 105 mmol/L (98-107); Glucose 85 mg/dL (74-106); Potassium 3.9 mmol/L (3.5-5.1); Sodium 141 mmol/L (136-145); TSH 1.08 uIU/mL (0.36-3.74); Total Protein 6.7 g/dL (6.4-8.2)
== END 2022-03-14 18:22 | disposition home or self-care (01) ==
LOC: LBN 18:21
PROVIDERS: PCP Family Medicine; Visit Provider Physician Assistant
DX: E03.9 Hypothyroidism, unspecified (principal); F39 Unspecified mood [affective] disorder
CPT/HCPCS: 80053; 84443

== ENCOUNTER 2022-06-05 17:31 | Inpatient (IN) | payer MEDICARE, MEDICAID, SELFPAY ==
[2022-06-05 17:43] VITALS: BP 120/82; PULSE 70; RESP 18; TEMP 36.6; O2SAT 98
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
--- NOTE | 2022-06-06 08:46 | NUR.NOTE ---
Nursing Note: PT was asked to stay in the room and when she comes out a mask needs to be worn. PT got upset and threw her cup of ice. She then proceeded back to the room and slammed the door closed. Security removed the metal chair from the room. PT is now yelling from her room.
--- NOTE | 2022-06-06 09:41 | W.EDPROG ---
Date of service: 06/06/22 Time of Service: 09:41 Medical Decision Making Received signout from Dr. Ward who cared for the patient overnight. Please see the previous notes regarding her initial presentation, exam and plan of care. Patient was reevaluated by mental health screeners. She currently is seeking voluntary placement for inpatient psychiatry services. Will complete medical work-up including lab work. Patient remains stable. I was able to discuss her case with her psychiatrist Dr. Isabel. He states she is been dysregulated for a number of days and not taking her medications. She is prescribed 10 mg of olanzapine in the morning and 25 mg at night. He recently attempted to have her take Zyprexa 5 mg twice daily as well as Seroquel 50 mg twice daily. I offered to these medications which she refused. Sign Out Sign Out Data: Sign Out Comment: chronic psychosis from schizophrenia, per [facility] at her baseline but no safe dispo for her tonight, currently voluntary but likely reeval in the morning and d/c with safety plan. surekha hiked to the area from [place] and went to a [facility], people at the [facility] were worried about her odd behavior so PD brought her to the ED tonight Last updated by Maurice Nguyễn MD at 06/05/22 19:44 Sign Out Comment: Stable throughout the evening, pending mental health reassessment Last updated by Cristi Ward DO at 06/06/22 07:15 Sign Out Comment: VOluntary, awaits placement Last updated by Alvin Kramer MD at 06/06/22 14:43 Discharge Plan Disposition Patient Disposition: [facility] INPATIENT Condition: Stable Discharge Details Clinical Impression: Schizophrenia Admit Date/Time: 06/06/22 16:49 Admit Provider: Triston Guzman Attending Provider: Triston Guzman Primary Care Provider: Lesia Pfeiffer ED Provider: Maurice Nguyễn Discharge Data Discharge Date/Time-TO BE ENTERED AT DEPARTURE: 06/06/22 18:05
[2022-06-06 10:02] LABS: Absolute Basophil Count 0.07 10^3/uL (0.0-0.2); Absolute Lymphocyte Count 2.09 10^3/uL (1.2-3.4); Absolute Monocyte Count 0.35 10^3/uL (0.1-0.8); Absolute Neutrophil Count 3.14 10^3/uL (1.2-6.7); Basophils % 1.2; Eosinophils % 3.4; HCT 39.7 % (36.0-46.0); HGB 13.7 g/dL (11.2-15.7); Lymphocytes % 35.7; MCH 30.8 pg (27.0-33.0); MCHC 34.5 % (32.0-36.0); MCV 89 fL (80-95); MPV 10.2 fL (8.0-11.0); Neutrophils % 53.7; Platelet Count 243 10^3/uL (130-400); RBC 4.45 10^6/uL (3.93-5.22); RDW 13.1 % (11.7-14.6); RDW-SD 42.8 fL; WBC 5.85 10^3/uL (4.4-10.8)
[2022-06-06 10:25] LABS: Salicylate < 2.8 mg/dL (<2.8)
[2022-06-06 10:25] LABS: Source Nasal/Nares
[2022-06-06] MEDS: Nicotine 4 MG LOZG SUC ×2 (10:26→13:11)
[2022-06-06 10:29] LABS: Acetaminophen < 2 ug/mL (10-30)
[2022-06-06 10:32] LABS: ALT 26 U/L (14-59); AST 21 U/L (15-37); Albumin 3.8 g/dL (3.4-5.0); Alkaline Phosphatase 48 U/L (46-116); Anion Gap 5.3 mmol/L (3-11); BUN 7 mg/dL (7-18); Bilirubin, Total 0.5 mg/dL (0.2-1.0); CO2 30.7 mmol/L (21.0-32.0); CREATININE 0.8 mg/dL (0.55-1.02); Chloride 105 mmol/L (98-107); Glucose 98 mg/dL (74-106); Potassium 4.1 mmol/L (3.5-5.1); Sodium 141 mmol/L (136-145); TSH (W/Ref FT4) 1.13 uIU/mL (0.36-3.74)
[2022-06-06 10:33] LABS: ETHANOL BLOOD < 3.0 mg/dL (<10)
[2022-06-06 11:03] LABS: COVID-19 PCR Negative (Negative)
--- NOTE | 2022-06-06 11:08 | CMSP_ITS ---
- If Service Date Differs Date of service: 06/06/22 Time of Service: 11:08 Care Management Safety Plan Status: Voluntary - Reason for Wait Reason for Wait: Inpatient Admission VOLUNTARY FOR INPATIENT PSYCHIATRIC STABILIZATION. Patient is appropriate in all interactions since arriving at [facility]; Pt has demonstrated appropriate coping and communication skills, has articulated his or her needs and concerns and is fully engaged during staff interactions. A decentralized huddle is done at 10:[address] Kramer, ED provider, Beth, nursing retail shift supervisor, Anne-Marie RN, and KIM Glavan. Safety plan has been established with patient, and care team, to adhere to patient goals, identify restrictions based on behavioral status, address nutrition, and determine allowed personal belongings, tools for hygiene and personal care. Determine level of activity including ambulation, level of supervision, visitors, and determine privileges based on behaviors and level of engagement by pt. SAFETY PLAN: 1. Will remain on suicide precautions. In Paper Clothes 2. Will remain in room under direct supervision of one-on-one staff at all times provided by CPSO, ERIC, BOILER MECHANIC icing machine operator. 3. May have paper cups, plates, finger foods as well as a cardboard spoon with which to eat meals. 4. Follow [facility] Management of the Admitted Behavioral Health Patient policy. 5. Shower permitted with escort at RN discretion. 6. No personal belongings with exception of eyeglasses. 7. Visitors-none at this time. 8. Activities: soft cart items, books, music tablet, television if available, and other activities at RN discretion. 9. Bathroom privileges with escort in the ED, available in room without limitation on M/S. 10. Phone: may use [employer] phone at RN discretion. 11. Due to VOLUNTARY status, if patient wishes to leave [facility], staff will contact [facility] Crisis Screener ([phone]) and On-Call Repeater Operator ([phone]) as soon as possible. In the event of elopement, notify [facility] Police ([phone]). Patient is currently voluntarily at [facility] and seeking inpatient admission when a bed becomes available. [facility] Frontline Crab Backer will continue seeking placement. Please contact the Kitchen Designer Repeater Operator ([phone]) and [facility] Crab Backer ([phone]) for any needed changes in the Safety Plan. Safety plan has been provided to interdepartmental care team.
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
[2022-06-06 15:36] LABS: HCG Qual (Serum) Negative
--- NOTE | 2022-06-06 16:06 | NUR.NOTE ---
[facility] [place] declined admission for this patient., Nursing Note:
--- NOTE | 2022-06-06 16:08 | W.EDPROG ---
Date of service: 06/06/22 Time of Service: 16:08 Medical Decision Making pt is a voluntary psych bed search, will see if we have beds here to admit as she is voluntary and has not had a code nelson. 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 surekha hiked to the area from [place] and went to a [facility], people at the [facility] were worried about her odd behavior so PD brought her to the ED tonight Last updated by Maurice Nguyễn MD at 06/05/22 19:44 Sign Out Comment: Stable throughout the evening, pending mental health reassessment Last updated by Cristi Ward DO at 06/06/22 07:15 Sign Out Comment: VOluntary, awaits placement Last updated by Alvin Kramer MD at 06/06/22 14:43 Discharge Plan Disposition Patient Disposition: STILL A PATIENT Condition: Stable Discharge Details Clinical Impression: Schizophrenia Primary Care Provider: Lesia Pfeiffer ED Provider: Maurice Nguyễn Home Meds and New Rx's Prescriptions: No Action olanzapine 15 mg Tablet 30 mg PO HS Nicotrol 10 mg Cartridge 0 cartridge inhalation Q2H PRN PRNQty: 0 0RF oseltamivir [Tamiflu] 75 mg Capsule 75 mg PO DAILY Qty: 10 0RF levothyroxine 125 mcg Tablet 125 mcg PO DAILY@0600 Qty: 0 0RF nicotine (polacrilex) 4 mg Lozenge 4 mg SUC Q1H PRN PRNQty: 0 0RF lorazepam 2 mg Tablet 2 mg PO HS norgestimate-ethinyl estradiol [Tri-Sprintec (28)] 0.18/0.215/0.25 mg-35 mcg (28) Tablet 1 tab PO DAILY
[2022-06-06 16:40] LABS: Bilirubin Negative (Negative); Blood Negative (Negative); Clarity Clear (Clear); Glucose Negative (Negative); Ketones Negative (Negative); Leukocyte Esterase Negative (Negative); Nitrite Negative (Negative); Specific Gravity 1.015 (1.005-1.025); Urobilinogen 0.2 EU/dL (Up TO 0.2)
[2022-06-06 17:04] LABS: *AMPHETAMINES SCREEN URINE Negative (Negative); *BARBITURATES SCREEN URINE Negative (Negative); *BENZODIAZEPINES SCREEN URINE Negative (Negative); Cannabinoids THC Negative (Negative); Cocaine Screen,Urine Negative (Negative); METHADONE URINE SCREEN Negative (Negative); OPIATES URINE SCREEN Negative (Negative)
[2022-06-06 17:07] LABS: Tricyclic Antidepressants Negative (Negative)
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
[2022-06-06 18:13] VITALS: BP 121/86; PULSE 104; RESP 17; TEMP 36.4; O2SAT 97
[2022-06-06] MEDS: OLANZapine 10 MG TAB 30 MG PO (20:51)
[2022-06-07] MEDS: Levothyroxine 125 MCG TAB PO (06:08)
[2022-06-07 07:50] VITALS: BP 121/83; PULSE 79; RESP 18; TEMP 36.3; O2SAT 98
--- NOTE | 2022-06-07 08:22 | NUR.NOTE ---
Patient yelling. RN present. Nursing Note:
[2022-06-07] MEDS: OLANZapine 10 MG TAB PO (08:28)
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
--- NOTE | 2022-06-07 09:25 | NUR.NOTE ---
Patient yelling very loudly. This newspaper writer went to patients door and asked the patient to please not yell. The patient asked why it wasn't necessary, I said because there are other patients here and yelling is very disruptive and it's not needed. And if she was that upset, that we could talk and I could try to help her talk about what she's feeling. But there was no reason to be yelling that loud. RN notified. Nursing Note:
[2022-06-07] MEDS: Nicotine 4 MG LOZG SUC ×4 (09:30→16:30)
--- NOTE | 2022-06-07 09:58 | NUR.NOTE ---
Nursing Note: 0950: this scribe went in to check on patient per agreement made earlier between patient and this RN. pt makes good eye contact, smiling, RN asks patient how she is doing, patient reports she is doing good. conversation moved quickly from topic to topic which included statements about how the patient is not able to read now because they put me on psych meds, I cannot read when I'm on psych meds, I like to read but I cannot. What is your favorite word? My favorite word is good. I like the to read the dictionary, do you read the dictionary? There are all the words of the language. RN reports to patient that she will check back in with her later.
--- NOTE | 2022-06-07 10:42 | NUR.NOTE ---
Patient has visitor from human services. Nursing Note:
--- NOTE | 2022-06-07 11:20 | CMSP_ITS ---
- If Service Date Differs Date of service: 06/07/22 Time of Service: 11:21 Care Management Safety Plan Status: Voluntary VOLUNTARY FOR INPATIENT PSYCHIATRIC STABILIZATION. Patient is appropriate in all interactions since arriving at [facility]; Pt has demonstrated appropriate coping and communication skills, has articulated his or her needs and concerns and is fully engaged during staff interactions. Jacquelin continues to struggle but was successful throughout the day; when escalated she was able to calm down and self-regulate. She presents as tense, defensive at some points almost hostile. At time of interaction, Jacquelin is easily re-directable. She appropriately requests word searches, nicotine replacement and coloring as well as television. Decentralized huddle throughout the day; conversations regarding best practice in patient support, safety planning, etc. JAMIN Pompa and [facility] report no beds at this time, share that [facility] is still reviewing. Safety plan has been established with patient, and care team, to adhere to patient goals, identify restrictions based on behavioral status, address nutrition, and determine allowed personal belongings, tools for hygiene and personal care. Determine level of activity including ambulation, level of supervision, visitors, and determine privileges based on behaviors and level of engagement by pt. SAFETY PLAN: 1. Will remain on suicide precautions. In Paper Clothes 2. Will remain in room under direct supervision of one-on-one staff at all times provided by [employer], ASSEMBLER TRIM, MANAGER DOMESTIC addiction social worker. 3. May have paper cups, plates, finger foods as well as a cardboard spoon with which to eat meals. 4. Follow [facility] Management of the Admitted Behavioral Health Patient policy. 5. Comfort bath system and shower permitted with escort at RN discretion. 6. Personal belongings limited to eyeglasses at this time. 7. Visitors-none at this time. 8. Activities: soft cart items, books, crayons, activity books, music tablet, television and remote and other activities at RN discretion. 9. Bathroom privileges with escort in the ED, available in room without limitation on M/S. 10. Phone: may use [employer] hospital phone at RN discretion. 11. Due to VOLUNTARY status, if patient wishes to leave [facility], staff will contact [facility] Crisis Screener ([phone]) and On-Call Geological Engineering Teacher ([phone]) as soon as possible. In the event of elopement, notify [facility] Police ([phone]). Patient is currently voluntarily at [facility] and seeking inpatient admission when a bed becomes available. [facility] Frontline Candle Making Supervisor will continue seeking placement. Please contact the Heavy Equipment Service Technician Geological Engineering Teacher ([phone]) and [facility] Candle Making Supervisor ([phone]) for any needed changes in the Safety Plan. Safety plan has been provided to interdepartmental care team.
--- NOTE | 2022-06-07 11:20 | CMPROGNOTE_ITS ---
- If Service Date Differs Date of service: 06/07/22 Time of Service: 11:20 Care Management Progress Note 1120 CM outreached to [facility] PUBLICITY PERSON Crisis Point Person to determine plan for placement/assessment today. 1122 Aletha responded that Johnson Singh would be seeing Jacquelin at [facility] today, awaiting updates. 1413 KIM responded to stat response request from nursing as Jacquelin was reportedly escalating in behavior. When CM arrived, Jacquelin was picking up crayons off the floor and putting them in a box. She then laid on the bed, and appeared to self regulate. She requested nicotine replacement which RN provided as well as remote to watch television. 1439 CM spoke with RN supervisor inspection, encouraging 2-1 coverage or frequent breaks for CPSO staff due to Jacquelin's acute behavioral management needs. 1456 KIM received call from JAMIN Aguilera [facility] in [place] who stated she had called facilities re: placement for Jacquelin. Willy stated the only facility who had not yet refused Jacquelin was [facility]. Willy reported she is unable to document in [facility] system, CM requested Willy fax her placement results list to CM fax.
--- NOTE | 2022-06-07 11:22 | PGE_ITS ---
Date of Service Date of service: 06/07/22 Time of Service: Assessment and Plan Assessment and plan (1) Schizophrenia: Status: Chronic Assessment and plan: Patient is currently admitted under voluntary status however if she attempts to leave the hospital the mental health services from [facility] should be notified as the patient should then be made an involuntary due to a potential danger to herself as she is currently having exacerbation of her psychosis. Mental health and case management will place referrals to area psychiatric facilities for acute inpatient psychiatric stabilization. Continuing home medications of olanzapine and lorazepam as well as her levothyroxine for her hypothyroidism. (2) Hypothyroidism: Status: Chronic Assessment and plan: Resumed levothyroxine 125 mcg daily. Current TSH was checked and found to be normal. (3) Discharge planning issues: Status: Acute Assessment and plan: Plan for placement at psychiatric facility; care mgt is working on it. Exam Narrative Exam Narrative: Const General: no acute distress Nutritional Appearance: average body habitus [facility] Head: normocephalic Ears: external ears normal and no periauricular adenopathy General nose exam: nasal mucous membranes and turbinates normal Face and sinus: sinuses nontender Mouth: oropharynx normal and moist mucous membranes Teeth and gingiva: dentition normal Eyes General: appearance normal, both eyes and all related structures Pupils: PERRL Neck Neck: normal visual inspection and no lymphadenopathy Chest Chest: normal inspection of the chest Resp Effort & Inspection: normal respiratory effort Auscultation: no rales, no rhonchi and wheezes expiratory wheezes (expiratory squeeks bilateral lower lung flowers) Cardio Rate: tachycardic Rhythm: regular rhythm Heart Sounds: S1 normal, S2 normal and no murmurs Pulses: radial pulses present bilaterally GI Inspection: normal to inspection Palpation: soft Skin General skin exam: no rashes or lesions noted Neuro General: patient alert, patient awake and patient oriented x3 Extrem General: no clubbing, cyanosis or edema Psych Mental Status: mental status grossly normal Affect: normal affect Attitude: cooperative Const General: no acute distress Orientation: alert [facility] Head: normal to inspection Ears: external ears normal General nose exam: external nose normal Mouth: moist mucous membranes Eyes General: appearance normal, both eyes and all related structures Neck Neck: normal visual inspection Resp Effort & Inspection: normal respiratory effort and able to speak in complete sentences Cardio Rate: regular rate Skin General skin exam: no rashes or lesions noted Neuro General: patient alert and patient oriented x3 Extrem General: normal to inspection Psych Speech and Movement: speech and movement normal Objective Last Vital Signs Temp 36.3 C L 06/07/22 07:50 Pulse 79 06/07/22 07:50 Resp 18 06/07/22 07:50 BP 121/83 06/07/22 07:50 Pulse Ox 98 06/07/22 07:50 Laboratory Results - last 24 hr 06/06/22 06/06/22 06/06/22 09:51 16:20 16:20 Serum HCG, Qual Negative Urine Color Yellow Urine Clarity Clear Urine pH 7.0 Ur Specific [place] 1.015 Urine Protein Negative Urine Ketones Negative Urine Blood Negative Urine Nitrite Negative Urine Bilirubin Negative Urine Urobilinogen 0.2 Ur Leukocyte Esterase Negative Urine Glucose Negative Urine Opiates Screen Negative Urine Methadone Screen Negative Ur Barbiturates Screen Negative Ur Tricyclics Screen Negative Ur Amphetamines Screen Negative U Benzodiazepines Scrn Negative Urine Cocaine Screen Negative Ur THC Screen Negative Reviewed Pertinent PMH: Yes
[2022-06-07] MEDS: Docusate Sodium 100 MG/10 ML CUP PO (21:02)
[2022-06-07] MEDS: OLANZapine 10 MG TAB 30 MG PO (21:02)
[2022-06-08] MEDS: Levothyroxine 125 MCG TAB PO (06:15)
[2022-06-08] MEDS: Nicotine 4 MG LOZG SUC ×2 (06:16→21:04)
--- NOTE | 2022-06-08 07:11 | NUR.NOTE ---
Nursing Note: Patient is currently talking to herself about and her sister. Her behavior is still calm will continue to monitor.
--- NOTE | 2022-06-08 07:30 | NUR.NOTE ---
Nursing Note: Patient is currently talking to herself, with her eyes closed. pt had previously been telling me about her plans for [facility], which included, mountain climbing, [place], angels, gods, lions, and demons. She stated that she sees these things when looking at the alexis, she also states she can't see them while in here and she was upset about that, this proposal lead writer reassured her that once everything here is over with she could look at the alexis again to try and keep her calm. She stated to me Once I saw two penises in the alexis, and obviously god was thinking about sex, and he wants me to as well.
[2022-06-08] MEDS: OLANZapine 10 MG TAB PO (07:54)
--- NOTE | 2022-06-08 07:59 | NUR.NOTE ---
Nursing Note: Patient was talking to this WELFARE CASE WORKER about aliens and how she connected with them when the nurse came in with her meds, I told pt that her nurse was here with her meds, and we could finish the conversation after if that way ok, she then told this show card writer to get out, because she was trying to educate me and I wasn't interested enough. I then gave pt her breakfast which had come during that conversation, nurse then went to give pt her meds and she started to scream, because her breakfast was ruined. pt took her meds and then threw away her breakfast.
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
--- NOTE | 2022-06-08 14:42 | CMSP_ITS ---
- If Service Date Differs Date of service: 06/08/22 Time of Service: 14:42 Care Management Safety Plan Status: Voluntary VOLUNTARY FOR INPATIENT PSYCHIATRIC STABILIZATION. Jacquelin continues to take medications as prescribed and exhibited drastic improvement today. She was able to have a shower this morning, and when Kimberly Carlin arrived from [facility] Jacquelin asked her appropriately to leave, Kimberly respected her wishes. Kimberly stated if Jacquelin decided to leave to notify [facility] because they would likely file EE paperwork. CM recieved call from Jacquelin's father: Scot who reported Jacquelin does well independently when compliant with medication. He reports Jacquelin feels like her m edication makes her dumb. He stated she lives independently but has struggled with medication compliance. He stated this is complicated by alcohol and caffeine use. Decentralized huddle throughout the day; conversations regarding best practice in patient support, safety planning, etc. GLASS TUBE BENDER Kimberly and Willy report no beds at this time, request updated clinicals be sent to [facility] which was completed. Safety plan has been established with patient, and care team, to adhere to patient goals, identify restrictions based on behavioral status, address nutrition, and determine allowed personal belongings, tools for hygiene and personal care. Determine level of activity including ambulation, level of supervision, visitors, and determine privileges based on behaviors and level of engagement by pt. SAFETY PLAN: 1. Will remain on suicide precautions. In Paper Clothes 2. Will remain in room under direct supervision of one-on-one staff at all times provided by [employer], CADMIUM BURNER, DECORATING EQUIPMENT SETTER professor of latin american studies. 3. May have paper cups, plates, finger foods as well as a cardboard spoon with which to eat meals. 4. Follow [facility] Management of the Admitted Behavioral Health Patient policy. 5. Comfort bath system and shower permitted with escort at RN discretion. 6. Personal belongings limited to eyeglasses at this time. 7. Visitors-none at this time. 8. Activities: soft cart items, books, crayons, activity books, music tablet, television and remote and other activities at RN discretion. 9. Bathroom privileges with escort in the ED, available in room without limitation on M/S. 10. Phone: may use [employer] hospital phone at RN discretion. 11. Due to VOLUNTARY status, if patient wishes to leave [facility], staff will contact [facility] Crisis Screener ([phone]) and On-Call Journalism Professor ([phone]) as soon as possible. In the event of elopement, notify [facility] Police ([phone]). Patient is currently voluntarily at [facility] and seeking inpatient admission when a bed becomes available. [facility] Frontline Distance Learning Coordinator will continue seeking placement. Please contact the Phlebotomist Journalism Professor ([phone]) and [facility] Distance Learning Coordinator ([phone]) for any needed changes in the Safety Plan. Safety plan has been provided to interdepartmental care team.
--- NOTE | 2022-06-08 14:50 | NUR.NOTE ---
Nursing Note: Patient had used the bathroom and had asked this ACCOUNT SERVICES COORDINATOR for a towel, I told her that I didn't have one with me but I would call down for one. She stopped me by saying, no no don't worry about it, someone just had a stroke, I don't want to distract them from what they are doing. She used her blanket as a towel to dry her hands off and was very appropriate and understanding about the overhead page, pt states she doesn't wanna request anything for at least an hour after something like that happens so doctors and nurses have time to focus on the critical patient. I did inform her that it wasn't up here and that I could still request the towel for next time, pt said it was okay and laid back down to watch tv. Pt has been very pleasant and kind since the over head page.
[2022-06-08] MEDS: Bisacodyl 5 MG TABEC PO (17:41)
[2022-06-08] MEDS: Acetaminophen 325 MG TAB PO (17:45)
--- NOTE | 2022-06-08 17:48 | PGE_ITS ---
Date of Service Date of service: 06/08/22 Time of Service: 17:49 Assessment and Plan Assessment and plan (1) Schizophrenia: Status: Chronic Assessment and plan: Patient is currently admitted under voluntary status however if she attempts to leave the hospital the mental health services from [facility] should be notified as the patient should then be made an involuntary due to a potential danger to herself as she is currently having exacerbation of her psychosis. Mental health and case management will place referrals to area psychiatric facilities for acute inpatient psychiatric stabilization. Continuing home medications of olanzapine and lorazepam as well as her levothyroxine for her hypothyroidism. (2) Hypothyroidism: Status: Chronic Assessment and plan: Resumed levothyroxine 125 mcg daily. Current TSH was checked and found to be normal. (3) Discharge planning issues: Status: Acute Assessment and plan: Plan for placement at psychiatric facility; care mgt is working on it, no accepting facilities at the time of this writing. Subjective Subjective Patient reports: no new complaints Interval history since last seen: Jacquelin is awake and alert, conversant. She does not stay on topic most of the time. It is difficult to follow her thought process. She mostly confabulates and is delusional, she is pleasant and engages in conversation with me. Exam Narrative Exam Narrative: Const General: no acute distress Nutritional Appearance: average body habitus [place] Head: normocephalic Ears: external ears normal and no periauricular adenopathy General nose exam: nasal mucous membranes and turbinates normal Face and sinus: sinuses nontender Mouth: oropharynx normal and moist mucous membranes Teeth and gingiva: dentition normal Eyes General: appearance normal, both eyes and all related structures Pupils: PERRL Neck Neck: normal visual inspection and no lymphadenopathy Chest Chest: normal inspection of the chest Resp Effort & Inspection: normal respiratory effort Auscultation: no rales, no rhonchi and wheezes expiratory wheezes (expiratory squeeks bilateral lower lung flowers) Cardio Rate: tachycardic Rhythm: regular rhythm Heart Sounds: S1 normal, S2 normal and no murmurs Pulses: radial pulses present bilaterally GI Inspection: normal to inspection Palpation: soft Skin General skin exam: no rashes or lesions noted Neuro General: patient alert, patient awake and patient oriented x3 Extrem General: no clubbing, cyanosis or edema Psych Mental Status: mental status grossly normal Affect: normal affect Attitude: cooperative Const General: no acute distress Orientation: alert HENMT Head: normal to inspection Ears: external ears normal General nose exam: external nose normal Mouth: moist mucous membranes Eyes General: appearance normal, both eyes and all related structures Neck Neck: normal visual inspection Resp Effort & Inspection: normal respiratory effort and able to speak in complete sentences Cardio Rate: regular rate Skin General skin exam: no rashes or lesions noted Neuro General: patient alert and patient oriented x3 Extrem General: normal to inspection Psych Speech and Movement: speech and movement normal Objective Last Vital Signs Temp 36.3 C L 06/07/22 07:50 Pulse 79 06/07/22 07:50 Resp 18 06/07/22 07:50 BP 121/83 06/07/22 07:50 Pulse Ox 98 06/07/22 07:50
[2022-06-08 20:12] VITALS: RESP 16; TEMP 36.8; O2SAT 98
[2022-06-08] MEDS: Senna TAB 1 TAB PO (20:12)
[2022-06-08] MEDS: Docusate Sodium 100 MG/10 ML CUP PO (20:12)
[2022-06-08] MEDS: OLANZapine 10 MG TAB 30 MG PO (20:12)
--- NOTE | 2022-06-08 20:50 | NUR.NOTE ---
Nursing Note: 2015 Patient was talkative with this medical technical writer about things she enjoys doing for fun like fishing. She said she has has been fishing in the ocean and how relaxing it was. She also mentioned how she enjoys playing card games like Rummy, Harold, Spades and Hearts. She said she can't wait to get her phone back so she can read some books on an jimena she has on her cell phone. I asked the CN if they have any books for patients that enjoy reading and she said care management may have some.
[2022-06-09 06:30] VITALS: BP 104/71; PULSE 77; RESP 16; TEMP 36.6; O2SAT 96
[2022-06-09] MEDS: Levothyroxine 125 MCG TAB PO (06:36)
[2022-06-09] MEDS: Docusate Sodium 100 MG/10 ML CUP PO ×2 (07:27→20:44)
[2022-06-09] MEDS: OLANZapine 10 MG TAB PO (07:27)
[2022-06-09] MEDS: Nicotine 4 MG LOZG SUC ×4 (07:28→20:44)
[2022-06-09 14:58] VITALS: BP 115/88; PULSE 87; RESP 17; TEMP 36.7; O2SAT 100
--- NOTE | 2022-06-09 15:50 | PGE_ITS ---
Date of Service Date of service: 06/09/22 Time of Service: 15:50 Assessment and Plan Assessment and plan (1) Schizophrenia: Status: Chronic Assessment and plan: Patient is currently admitted under voluntary status however if she attempts to leave the hospital the mental health services from [facility] should be notified. Mental health and case management will place referrals to area psychiatric facilities for acute inpatient psychiatric stabilization. Continuing current home meds (2) Hypothyroidism: Status: Chronic Assessment and plan: Resumed levothyroxine 125 mcg daily. Current TSH was checked and found to be normal. (3) Discharge planning issues: Status: Acute Assessment and plan: Plan for placement at psychiatric facility; care mgt is working on it, no accepting facilities at the time of this writing. She would like to go to a detention, she said she does not want to go to an institution. Subjective Subjective Patient reports: no new complaints, feels better, tolerating a regular diet and voiding w/o difficulty; denies diarrhea, nausea, vomiting or shortness of breath Interval history since last seen: Jacquelin has been in the room, awake and alert, without complaints. She has a tablet and has been watching movies and listening to music. She told me she wants to go to a detention. She denies SI/HI. Her father called while I was with her, she declined speaking with him. She has been eating and drinking plenty of fluids. She did have a shower yesterday. Discussed with Dr Falcon Exam Narrative Exam Narrative: Const General: no acute distress Nutritional Appearance: average body habitus [facility] Head: normocephalic Ears: external ears normal and no periauricular adenopathy General nose exam: nasal mucous membranes and turbinates normal Face and sinus: sinuses nontender Mouth: oropharynx normal and moist mucous membranes Teeth and gingiva: dentition normal Eyes General: appearance normal, both eyes and all related structures Pupils: PERRL Neck Neck: normal visual inspection and no lymphadenopathy Chest Chest: normal inspection of the chest Resp Effort & Inspection: normal respiratory effort Auscultation: no rales, no rhonchi and wheezes expiratory wheezes Cardio Rate: 80's Rhythm: regular rhythm Heart Sounds: S1 normal, S2 normal and no murmurs Pulses: radial pulses present bilaterally GI Inspection: normal to inspection Palpation: soft Skin General skin exam: no rashes or lesions noted Neuro General: patient alert, patient awake and patient oriented x3 Extrem General: no clubbing, cyanosis or edema Psych Mental Status: mental status grossly normal Affect: normal affect Attitude: cooperative, engaged, conversant - she does have flight of ideas but is easily redirected back to the conversation. Objective Last Vital Signs Temp 36.7 C 06/09/22 14:58 Pulse 87 06/09/22 14:58 Resp 17 06/09/22 14:58 BP 115/88 06/09/22 14:58 Pulse Ox 100 06/09/22 14:58
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
--- NOTE | 2022-06-09 16:36 | PDOC.CMPRO ---
- If Service Date Differs Date of service: 06/09/22 Time of Service: 16:36 Care Management Progress Note S/O: Jacquelin was walking around in her room when KIM met with her.She was very talkative and requested a dictionary or thesaurus to read. She explained that she cannot read books because of her psych meds. Jacquelin also shared that she would really like to live in a snf with 5 other women. Their purpose would be to spread love and to work. She identified that each person would be assigned tasks to do to keep the household running. KIM spoke with Michelle Sheridan who is the PARTY PLAN DEMONSTRATOR supervisor of communications in [place]. She verbalized that she was pleased that Jacquelin has been taking her medication and is hoping that she can transition back to the community on Saturday, as she has not received any bed offers from psychiatric hospitals in [place].. Jacquelin has not been screened today as of this writing but an [facility] is expected to see her later today. P: Jacquelin is awaiting voluntary placement in a psychiatric facility. If unable to secure, may transition home to [place] with increased support.
[2022-06-09] MEDS: OLANZapine 10 MG TAB 30 MG PO (20:44)
[2022-06-10 05:57] VITALS: BP 107/73; PULSE 77; RESP 16; TEMP 36.7; O2SAT 98
[2022-06-10] MEDS: Levothyroxine 125 MCG TAB PO (06:03)
[2022-06-10] MEDS: Nicotine 4 MG LOZG SUC ×6 (06:35→20:01)
[2022-06-10] MEDS: Docusate Sodium 100 MG/10 ML CUP PO (07:55)
[2022-06-10] MEDS: OLANZapine 10 MG TAB PO (07:56)
--- NOTE | 2022-06-10 13:09 | PGE_ITS ---
Date of Service Date of service: 06/10/22 Time of Service: 13:10 Assessment and Plan Assessment and plan (1) Schizophrenia: Status: Chronic Assessment and plan: Patient is currently admitted under voluntary status however if she attempts to leave the hospital the mental health services from [facility] should be notified. Mental health and case management will place referrals to area psychiatric facilities for acute inpatient psychiatric stabilization. Continuing current home meds. (2) Hypothyroidism: Status: Chronic Assessment and plan: Resumed levothyroxine 125 mcg daily. Current TSH was checked and found to be normal. (3) Discharge planning issues: Status: Acute Assessment and plan: Plan for placement at psychiatric facility; care mgt is working on it, no accepting facilities at the time of this writing. She would like to go to a jail, she said she does not want to go to an institution. Eating and drinking, no , or GI issues. Subjective Subjective Patient reports: no new complaints Interval history since last seen: Jacquelin is not talking today - she made the motion that her lips are sealed and she threw away the bryson. She is pleasant and engaged, not verbal. She has been reading and watching TV today. Exam Narrative Exam Narrative: Const General: no acute distress Nutritional Appearance: average body habitus [facility] Head: normocephalic Ears: external ears normal and no periauricular adenopathy General nose exam: nasal mucous membranes and turbinates normal Face and sinus: sinuses nontender Mouth: oropharynx normal and moist mucous membranes Teeth and gingiva: dentition normal Eyes General: appearance normal, both eyes and all related structures Pupils: PERRL Neck Neck: normal visual inspection and no lymphadenopathy Chest Chest: normal inspection of the chest Resp Effort & Inspection: normal respiratory effort Auscultation: no rales, no rhonchi and wheezes expiratory wheezes Cardio Rate: 80's Rhythm: regular rhythm Heart Sounds: S1 normal, S2 normal and no murmurs Pulses: radial pulses present bilaterally GI Inspection: normal to inspection Palpation: soft Skin General skin exam: no rashes or lesions noted Neuro General: patient alert, patient awake and patient oriented x3 Extrem General: no clubbing, cyanosis or edema Psych Mental Status: mental status grossly normal Affect: normal affect Attitude: cooperative, engaged, conversant - she does have flight of ideas but is easily redirected back to the conversation. Objective Last Vital Signs Temp 36.7 C 06/10/22 05:57 Pulse 77 06/10/22 05:57 Resp 16 06/10/22 05:57 BP 107/73 06/10/22 05:57 Pulse Ox 98 06/10/22 05:57
--- NOTE | 2022-06-10 14:58 | PDOC.CMSAFE ---
- If Service Date Differs Date of service: 06/10/22 Time of Service: 14:58 Care Management Safety Plan Status: Voluntary - Reason for Wait Reason for Wait: Inpatient Admission Jacquelin continues to take medications as prescribed and has interacted appropriately with staff today. Decentralized huddle with Beth, nursing burning supervisor, ALEJANDRO Garcias, nurse Sanjuanita and KIM Singleton. Jacquelin has been declined at several facilities and the others either have no beds or are only taking clients from their area. Safety plan has been established with patient, and care team, to adhere to patient goals, identify restrictions based on behavioral status, address nutrition, and determine allowed personal belongings, tools for hygiene and personal care. Determine level of activity including ambulation, level of supervision, visitors, and determine privileges based on behaviors and level of engagement by pt. SAFETY PLAN: 1. Will remain on suicide precautions. In Paper Clothes 2. Will remain in room under direct supervision of one-on-one staff at all times provided by CPSO, MANAGER FOOD SAFETY, TEST AUTOMATION ARCHITECT dye automation operator. 3. May have paper cups, plates, finger foods as well as a cardboard spoon with which to eat meals. 4. Follow [facility] Management of the Admitted Behavioral Health Patient policy. 5. Comfort bath system and shower permitted with escort at RN discretion. 6. Personal belongings limited to eyeglasses at this time. 7. Visitors-none at this time. 8. Activities: soft cart items, books, crayons, activity books, music tablet, television and remote and other activities at RN discretion. 9. Bathroom privileges with escort in the ED, available in room without limitation on M/S. 10. Phone: no phone privileges at this time. 11. Due to VOLUNTARY status, if patient wishes to leave [facility], staff will contact [facility] Crisis Screener ([phone]) and On-Call Human Resources Executive Assistant ([phone]) as soon as possible. In the event of elopement, notify [place] [employer] Police ([phone]). Patient is currently voluntarily at [facility] and seeking inpatient admission when a bed becomes available. [facility] Frontline Technology Auditor will continue seeking placement. Please contact the Pharmacy Intake Technician Human Resources Executive Assistant ([phone]) and [facility] Technology Auditor ([phone]) for any needed changes in the Safety Plan. Safety plan has been provided to interdepartmental care team.
--- NOTE | 2022-06-10 15:12 | CMPROGNOTE_ITS ---
- If Service Date Differs Date of service: 06/10/22 Time of Service: 15:12 Care Management Progress Note S/O: Jacquelin was cooperative today and was appropriate in her interactions with staff. She did request Lorazepam this afternoon and she stated to CM that she is anxious. CM asked if anything precipitated that feeling and she responded that she has just learned that she is the goddess of the universe and that it weighs heavily on her. She was holding her hand to her chest at the time. She also stated that she does not want to do anything until [place] - good or bad, that might hurt the universe. P: Jacquelin is awaiting voluntary placement in a psychiatric facility. If unable to secure, may transition home to [place] with increased support.
[2022-06-10] MEDS: LORazepam 1 MG TAB 2 MG PO (16:28)
[2022-06-10] MEDS: OLANZapine 10 MG TAB 30 MG PO (21:06)
[2022-06-10 23:12] VITALS: BP 110/75; PULSE 82; RESP 16; TEMP 36.7; O2SAT 98
[2022-06-11] MEDS: Levothyroxine 125 MCG TAB PO (06:45)
[2022-06-11] MEDS: Nicotine 4 MG LOZG SUC ×7 (06:50→23:49)
[2022-06-11] MEDS: OLANZapine 10 MG TAB PO (07:35)
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
--- NOTE | 2022-06-11 12:25 | CMSP_ITS ---
- If Service Date Differs Date of service: 06/11/22 Time of Service: 12:25 Care Management Safety Plan Status: Voluntary Jacquelin continues to take medications as prescribed, she also continues to present with delusional thinking and delusions of grandeur. Decentralized huddle with interdepartmental team throughout the day. Brief huddle with nursing carbon electrodes supervisor Beth and RN: Ollie, as well. Jacquelin has been declined at several facilities and the others either have no beds or are only taking clients from their area. Ana reports a one year block on Jacquelin for admission, and would only consider her in the future as a level 1. Samantha and Rowena from [facility] met with Jacquelin and report crisis placement is being sought at this time, Willy of [facility] is coordinating referral. Jacquelin will discharge to [facility] tomorrow at 1000 via [facility]. Safety plan has been established with patient, and care team, to adhere to patient goals, identify restrictions based on behavioral status, address nutrition, and determine allowed personal belongings, tools for hygiene and personal care. Determine level of activity including ambulation, level of supervision, visitors, and determine privileges based on behaviors and level of engagement by pt. SAFETY PLAN: 1. Will remain on suicide precautions. In Paper Clothes 2. Will remain in room under direct supervision of one-on-one staff at all times provided by CPSO, ERIC, COMPTOMETER OPERATOR day porter. 3. May have paper cups, plates, finger foods as well as a cardboard spoon with which to eat meals. 4. Follow [facility] Management of the Admitted Behavioral Health Patient policy. 5. Comfort bath system and shower permitted with escort at RN discretion. 6. Personal belongings limited to eyeglasses at this time. 7. Visitors-none at this time. 8. Activities: soft cart items, books, crayons, activity books, music tablet, television and remote and other activities at RN discretion. 9. Bathroom privileges with escort in the ED, available in room without limitation on M/S. 10. Phone: cordless [facility] phone use permitted at RN discretion. 11. Due to VOLUNTARY status, if patient wishes to leave [facility], staff will contact [facility] Crisis Screener ([phone]) and On-Call Wind Operations Supervisor ([phone]) as soon as possible. In the event of elopement, notify [facility] Police ([phone]). Patient is currently voluntarily at [facility] and seeking inpatient admission when a bed becomes available. [facility] Frontline Desktop Analyst will continue seeking placement. Please contact the Gambling Floor Supervisor Wind Operations Supervisor ([phone]) and [facility] Desktop Analyst ([phone]) for any needed changes in the Safety Plan. Safety plan has been provided to interdepartmental care team.
[2022-06-11 12:39] VITALS: BP 104/72; PULSE 84; RESP 16; TEMP 37.1; O2SAT 96
[2022-06-11 19:21] VITALS: BP 103/79; PULSE 89; RESP 16; TEMP 37.1; O2SAT 97
[2022-06-11] MEDS: OLANZapine 10 MG TAB 30 MG PO (20:54)
[2022-06-12] MEDS: Nicotine 4 MG LOZG SUC ×3 (06:54→10:05)
[2022-06-12] MEDS: Levothyroxine 125 MCG TAB PO (06:54)
[2022-06-12 08:20] VITALS: BP 135/84; PULSE 109; RESP 18; TEMP 36.9; O2SAT 100
--- NOTE | 2022-06-12 08:25 | CMDISCH_ITS ---
- If Service Date Differs Date of service: 06/12/22 Time of Service: 08:25 LACE Index Scoring Tool - Questions: Length of Stay (in days): 4 - 6 Acuity (Admit via E.D.?): Yes E.D. Visits: 1 - Answers: Total Score: 8 Risk of Readmission: Low Risk Care Management Discharge Reason for Hospitalization: Paranoid Schizophrenia Discharge Plan: Jacquelin will discharge to the [facility] Assist program: crisis bed. Medications delivered by Rowena of [facility] as [facility] required ten day supply. DC summary and MAR faxed to [phone]. She will transport via [employer], coordinated by this short story writer. Patient/Family Education Needs: Review discharge instructions, discuss Ask Me Three. Services Needed at Discharge: Transportation (Continuous Yarn Dyeing Machine Operator-not required for crisis bed discharge ) - MH Services (Omit if N/A) Current MH Services: Internal [facility] ([facility]) - Disposition Disposition: Crisis Bed ([facility] )
--- NOTE | 2022-06-12 08:25 | PDOC.CMDIS ---
- If Service Date Differs Date of service: 06/12/22 Time of Service: 08:25 LACE Index Scoring Tool - Questions: Length of Stay (in days): 4 - 6 Acuity (Admit via E.D.?): Yes E.D. Visits: 1 - Answers: Total Score: 8 Risk of Readmission: Low Risk Care Management Discharge Reason for Hospitalization: Paranoid Schizophrenia Discharge Plan: Jacquelin will discharge to the [facility] Assist program: crisis bed. Medications delivered by Rowena of [facility] as [facility] required ten day supply. DC summary and MAR faxed to [phone]. She will transport via [employer], coordinated by this process description writer. Patient/Family Education Needs: Review discharge instructions, discuss Ask Me Three. Services Needed at Discharge: Transportation (Stacker Straightener-not required for crisis bed discharge ) - MH Services (Omit if N/A) Current MH Services: Internal [facility] ([facility]) - Disposition Disposition: Crisis Bed ([facility] )
[2022-06-12] MEDS: OLANZapine 10 MG TAB PO (09:00)
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
== END 2022-06-12 10:12 | disposition designated cancer center or children's hospital (05) | DRG 885 ==
LOC: ER 06-06 17:21 → MS 06-06 18:07
PROVIDERS: Emergency Medicine; Admitting Provider Internal Medicine; Emergency Provider Emergency Medicine; PCP Family Medicine; Visit Provider Internal Medicine
DX: F20.0 Paranoid schizophrenia (principal); R05.1 Acute cough; F17.210 Nicotine dependence, cigarettes, uncomplicated; E03.9 Hypothyroidism, unspecified; F12.90 Cannabis use, unspecified, uncomplicated; Z59.00 Homelessness unspecified; Z79.899 Other long term (current) drug therapy
CPT/HCPCS: 80053; 80307; 87635; 99284; 99285; 80320; 80329; 81003; 84443; 84703; 85025; 99217; 99218; 99225; 99232; G0378